=== PATIENT | male | born 1935 | race Caucasian/White ===

== ENCOUNTER 2016-11-28 15:55 | Inpatient (IN) | payer OTHER, MEDICARE ==
[2016-11-28] VITALS (17 sets, daily range): BP systolic 80–136; BP diastolic 48–74; PULSE 82–130; RESP 14–20; TEMP 97–97.7; O2SAT 94–100
[~2016-11-28 15:55] MED LIST: ALLO100 PO; ASPI325T10 PO; ATOR40TA PO; CILO100T PO; GABA100C4 PO; IMOD2TAB PO; LANO0.1212 PO; METO50CR PO; TRIA.1%T TOP
[2016-11-28] MEDS ORDERED: SODIUM CHLORIDE 0.9% FLUSH 10 ML FLUSH IVF PRN (16:15)
[2016-11-28] MEDS ORDERED: ETOMIDATE 20 MG/10 ML VIAL IVP ONE (16:15)
[2016-11-28] MEDS ORDERED: VECURONIUM BROMIDE 10 MG VIAL IV ONE (16:15)
--- NOTE | 2016-11-28 16:37 | RADRPT ---
EXAM DATE/TIME: 11/28/2016 16:19 [facility] COMPARISON: CHEST SINGLE AP, May 10, 2016, 15:17. INDICATIONS : Chest pain, intubation. MEDICAL HISTORY : Unobtainable. SURGICAL HISTORY : Unobtainable. ENCOUNTER: Initial ACUITY: 1 day PAIN SCORE: Non-responsive. LOCATION: Chest FINDINGS: ET tube and nasogastric tube are in good position. The heart is enlarged. Mild interstitial edema is present. There is no alveolar consolidation or pneumothorax. CONCLUSION: 1. Cardiomegaly with mild congestive failure. 2. Support apparatus in good position. Kev Louise MD FACR on November 28, 2016 at 16:26 Board Certified Radiologist. This report was verified electronically.
[2016-11-28 16:38] LABS: I-STAT POTASSIUM 4.1 MMOL/L (3.5-4.9)
[2016-11-28] MEDS ORDERED: SODIUM CHLORID 0.9% 500 ML INJ 500 ML IV ONE ×3 (16:45→21:30)
[2016-11-28 16:46] LABS: BLOOD GAS BASE EXCESS -16.8 mmol/L (-2-2); BLOOD GAS CARBOXYHEMOGLOBIN 0.1 % (0-4); BLOOD GAS HCO3 13 mmol/L (22-26); BLOOD GAS METHEMOGLOBIN 0.4 % (0-2); BLOOD GAS O2 HGB SATURATION 97 % (90-100); BLOOD GAS OXYGEN CONTENT 20.5 Vol % (12.0-20.0); BLOOD GAS PCO2 62 mmHg (38-42); BLOOD GAS PO2 149 mmHG (61-120); BLOOD GAS TOTAL HGB 14.9 G/DL (12.0-16.0); CRITICAL VALUE YES; TEMP CORR TO 98.6
[2016-11-28 16:46] LABS: INTERNATIONAL NORMALIZED RATIO 1.1 RATIO; PROTHROMBIN TIME - PATIENT 12.2 SEC (9.8-11.6)
[2016-11-28 16:47] LABS: DRAW SITE RT RADIAL; FIO2 100 %; NUMBER OF ARTERIAL PUNCTURES 1; OXYGEN DEVICE VENTILATOR; STAT YES; ULNAR PULSE PRESENT; VENT SETTINGS 14/550/+5/100%
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
[2016-11-28 16:53] LABS: AUTOMATED NEUTROPHIL # 4.6 TH/MM3 (1.8-7.7); BASOPHIL # 0.1 TH/MM3 (0-0.2); BASOPHIL % 0.3 % (0.0-2.0); EOSINOPHIL # 0.2 TH/MM3 (0-0.4); EOSINOPHIL % 0.8 % (0.0-4.0); HEMATOCRIT 52.9 % (39.0-51.0); LYMPH % 73.9 % (9.0-44.0); LYMPHOCYTE # 16.4 TH/MM3 (1.0-4.8); MEAN CELL VOLUME 107.7 FL (80.0-100.0); MEAN CORPUSCULAR HEMOGLOBIN 33.7 PG (27.0-34.0); MEAN CORPUSCULAR HGB CONC 31.3 % (32.0-36.0); MONO % 4.4 % (0.0-8.0); NEUT % 20.6 % (16.0-70.0); PLATELET COUNT 176 TH/MM3 (150-450); RED BLOOD COUNT 4.92 MIL/MM3 (4.50-5.90); RED CELL DISTRIBUTION WIDTH 17.4 % (11.6-17.2); WHITE BLOOD COUNT 22.2 TH/MM3 (4.0-11.0)
[2016-11-28 16:55] LABS: ALKALINE PHOSPHATASE 172 U/L (45-117); ALT (GPT) 38 U/L (12-78); ANION GAP 26 MEQ/L (5-15); AST (GOT) 47 U/L (15-37); BICARBONATE 14.6 MEQ/L (21.0-32.0); BLOOD UREA NITROGEN 23 MG/DL (7-18); CHLORIDE 100 MEQ/L (98-107); GLOMERULAR FILTRATION RATE 29 ML/MIN (>89); MAGNESIUM 2.9 MG/DL (1.5-2.5); SODIUM (NA) 141 MEQ/L (136-145); TOTAL BILIRUBIN ADULT 1.1 MG/DL (0.2-1.0)
[2016-11-28 16:56] LABS: CREATINE KINASE 99 U/L (39-308)
[2016-11-28 16:57] LABS: HEMO FLAGS AUTO DIFF
[2016-11-28] MEDS ORDERED: SODIUM BICARBONATE 8.4% INJ 50 MEQ/50 ML SYR IV PUSH ONE ×2 (17:00)
[2016-11-28] MEDS ORDERED: VANCOMYCIN INJ 1,000 MG in SODIUM CHLOR 0.9% 250 ML INJ 250 ML IV STA (17:03)
[2016-11-28] MEDS ORDERED: PIPERACIL-TAZO 4.5 GM PREMIX 100 ML IV STA (17:03)
[2016-11-28 17:49] LABS: BANDS 3 % (0-6); EOSINOPHILS 2 % (0-4); NEUTROPHIL # MANUAL DIFF 5.6 TH/MM3 (1.8-7.7); POLYS (SEG NEUTROPHILS) 20 % (16-70); PROMYELOCYTES 2 % (0-0); SCAN/DIFF FINAL DIFF MANUAL; WBC DIFF SAMPLE 100
[2016-11-28 17:50] LABS: PLATELET ESTIMATE SMEAR NORMAL (NORMAL); PLATELET MORPHOLOGY NORMAL (NORMAL)
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
[2016-11-28 18:29] LABS: BLOOD GAS BASE EXCESS -5.1 mmol/L (-2-2); BLOOD GAS HCO3 20 mmol/L (22-26); BLOOD GAS METHEMOGLOBIN 0.3 % (0-2); BLOOD GAS O2 HGB SATURATION 93 % (90-100); BLOOD GAS OXYGEN CONTENT 19.3 Vol % (12.0-20.0); BLOOD GAS PCO2 40 mmHg (38-42); BLOOD GAS PO2 79 mmHG (61-120); BLOOD GAS TOTAL HGB 14.7 G/DL (12.0-16.0); TEMP CORR TO 98.6
[2016-11-28 19:13] LABS: BACTERIA, URINE MOD /hpf; BLOOD, URINE LARGE (NEG); GLUCOSE,URINE TRACE mg/dL (NEG); KETONE, URINE NEG (NEG); MUCUS URINE FEW /lpf (OCC); NITRITE,URINE NEG (NEG); URINE COLOR YELLOW (YELLW/STRAW)
[2016-11-28] MEDS ORDERED: GLUCAGON 1 MG/ML VIAL OTHER PRN (19:15)
[2016-11-28] MEDS ORDERED: MIDAZOLAM HCL 2 MG/2 ML VIAL IV PRN (19:15)
[2016-11-28] MEDS ORDERED: RESP: ALBUTEROL 2.5 MG/3 ML NEB (PRN) INH (19:15)
[2016-11-28] MEDS ORDERED: CHLORHEXIDINE GLUCONATE 2 % 1 PACK (2 CLOTHS) TOP PRN (19:15)
[2016-11-28] MEDS ORDERED: ONDANSETRON HCL 4 MG/2 ML VIAL IV PRN (19:15)
[2016-11-28] MEDS ORDERED: DEXTROSE 50% IN WATER 50 ML VIAL(D50) IV PUSH PRN (19:15)
[2016-11-28] MEDS ORDERED: MISCELLANEOUS NURSING INFORMATION XX SCH (19:15)
[2016-11-28 19:18] LABS: COMMENT (UR) CATH-CULTURE IND; CULTURE IF INDICATED CATH CULTURE IND
[2016-11-28] MEDS: RESP: ALBUTEROL 2.5 MG/IPRATROPIUM 0.5 MG NEB (SCH) INH (19:35)
[2016-11-28 19:44] LABS: LACTIC ACID GHOST NOT REPORTABLE
[2016-11-28] MEDS ORDERED: fentaNYL DRIP 250 ML IV SCH (20:00)
--- NOTE | 2016-11-28 20:16 | RADRPT ---
EXAM DATE/TIME: 11/28/2016 19:22 [facility] COMPARISON: No previous studies available for comparison. INDICATIONS : Bilateral leg swelling. MEDICAL HISTORY : Congestive heart failure. Hypercholesterolemia. Coronary artery disease. Afib. HTN. Colorectal cance r. Cdiff. SURGICAL HISTORY : Tonsillectomy.Craniotomy. Cholecystectomy.Colorectal cancer removed. Colostomy with reversal. Chemoth erapy. Radiation therapy. ENCOUNTER: Initial ACUITY: 1 day PAIN SCORE: Non-responsive LOCATION: Bilateral leg. TECHNIQUE: Venous ultrasound of the left and right leg was performed from the inguinal ligament to the proximal calf. Real-time, color Doppler and spectral tracing, compression and augmentation techniques were us ed. FINDINGS: RIGHT LEG: There is normal compressibility of the deep venous system from the inguinal region to the proximal ca lf. No echogenic clot is seen in the lumen of the common femoral, femoral, popliteal, and posterior tibial veins. There is a normal response of the venous system to proximal and distal augmentation an d respiration. LEFT LEG: There is normal compressibility of the deep venous system from the inguinal region to the proximal ca lf. No echogenic clot is seen in the lumen of the common femoral, femoral, popliteal, and posterior tibial veins. There is a normal response of the venous system to proximal and distal augmentation an d respiration. CONCLUSION: Normal examination. Lee Mcbride MD on November 28, 2016 at 20:14 Board Certified Radiologist. This report was verified electronically.
--- NOTE | 2016-11-28 20:16 | RADRPT ---
EXAM DATE/TIME: 11/28/2016 19:04 [facility] COMPARISON: No previous studies available for comparison. INDICATIONS : Abdominal pain. MEDICAL HISTORY : Congestive heart failure. Hypercholesterolemia. Coronary artery disease. Afib. HTN. Colorectal canc er. Cdiff. SURGICAL HISTORY : Tonsillectomy. Craniotomy. Cholecystectomy. Colorectal cancer removed. Colostomy with reversal. Chemo therapy. Radiation therapy. ENCOUNTER: Initial ACUITY: 1 day PAIN SCORE: Nonresponsive. LOCATION: Abdomen. MEASUREMENTS: LIVER: 14.4 cm length COMMON DUCT: 5 mm RIGHT KIDNEY: 8.9 x 3.7 x 4.1 cm LEFT KIDNEY: 9.3 x 4.6 x 5.2 cm SPLEEN: 11.7 cm length AORTA: 2.4cm maximal FINDINGS: LIVER: Normal echotexture without focal lesion or ductal dilatation. COMMON DUCT: No intraluminal mass or stone visualized. GALLBLADDER: Surgically absent PANCREAS: Obscured RIGHT KIDNEY: Diffuse increase in cortical echogenicity. Mild atrophy. No evidence of hydronephrosis LEFT KIDNEY: Diffuse increase in cortical echogenicity. Mild atrophy. No evidence of hydronephrosis. SPLEEN: No focal lesion. AORTA: Non aneurysmal. IVC: Within normal limits. CONCLUSION: Chronic-appearing renal disease. No acute findings Lee Mcbride MD on November 28, 2016 at 20:13 Board Certified Radiologist. This report was verified electronically.
[2016-11-28] MEDS: CHLORHEXIDINE 0.12% (ORAL KIT) 15 ML CUP MT SCH (21:16)
[2016-11-28] MEDS: SODIUM CHLOR 0.9% 1000 ML INJ 1,000 ML IV SCH (21:16)
[2016-11-28] MEDS: SODIUM CHLORIDE 0.9% FLUSH 10 ML FLUSH SCH (21:17)
[2016-11-28] MEDS: DOCUSATE SODIUM 100 MG/10 ML UDC G-TUBE SCH (21:24)
[2016-11-28] MEDS: INSULIN ASPART SUPPLEMENTAL SCALE SQ SCH (21:24)
[2016-11-28] MEDS ORDERED: TERBUTALINE INJ 1 MG/ML AMP SQ PRN (21:30)
[2016-11-28] MEDS ORDERED: ATROPINE SULFATE 1 MG/10 ML SYRINGE ONE (22:13)
[2016-11-28] MEDS ORDERED: EPINEPHrine HCL (1:10,000) 1 MG/10 ML SYRINGE ONE (22:13)
[2016-11-28] MEDS ORDERED: LIDOCAINE HCL 2% 100 MG/5 ML SYRINGE ONE (22:13)
[2016-11-29] VITALS (19 sets, daily range): BP systolic 85–129; BP diastolic 50–60; PULSE 70–96; RESP 18; TEMP 97.9–98.6; O2SAT 100
[2016-11-29] MEDS ORDERED: Vancomycin Consult Pharmacy 1 EA OTHER SCH (00:15)
--- NOTE | 2016-11-29 00:18 | RADRPT ---
EXAM DATE/TIME: 11/28/2016 23:27 [facility] COMPARISON: CT BRAIN W/O CONTRAST, November 28, 2016, 17:40. INDICATIONS : CVA. MEDICAL HISTORY : Hypertension. Congestive heart failure. Seizures. High cholesterol, Afib, CAD, Colonrectal cancer SURGICAL HISTORY : Cholecystectomy. Colon resection. Craniotomy, Rectal sx ENCOUNTER: Initial ACUITY: 1 day PAIN SCORE: Nonresponsive. LOCATION: Bilateral cranial TECHNIQUE: Multiplanar, multisequence MRI of the brain was performed without contrast. FINDINGS: Areas of encephalomalacia involving the right temporal lobe, right occipital lobe, left frontal lobe and right parietal lobe. Periventricular high T2 signal abnormality involving both cerebral hemispher es. No hemorrhage or acute infarction. Ventricles are normal in size. Prior right craniotomy. Mucosal thickening scattered throughout the ethmoid air cells, maxillary sinuses, and sphenoid sinuses bilat erally. CONCLUSION: 1. No acute intracranial abnormality. 2. Multiple sites of encephalomalacia as detailed above. 3. Chronic small vessel ischemic change. 4. Chronic paranasal sinus disease. Edmond Chavis Jr., MD on November 29, 2016 at 0:13 Board Certified Radiologist. This report was verified electronically.
--- NOTE | 2016-11-29 00:22 | RADRPT ---
EXAM DATE/TIME: 11/28/2016 23:27 [facility] COMPARISON: MRI BRAIN W/O CONTRAST, November 28, 2016, 23:27. INDICATIONS : CVA. MEDICAL HISTORY : Hypertension. Congestive heart failure. Seizures. High cholesterol, Afib, CAD, Colonrectal cancer SURGICAL HISTORY : Colon resection. Cholecystectomy. Craniotomy, Rectal sx. ENCOUNTER: Initial ACUITY: 1 day PAIN SCORE: Nonresponsive. LOCATION: Bilateral cranial Please note a normal MRA of the brain does not entirely exclude the possibility of a small aneurysm, nor the possibility of distal intracranial vessel disease. TECHNIQUE: 3D time of flight MRA was performed. Source images, multiplanar STS MIP, and 3D volume MIP reconstru ctions were reviewed. FINDINGS: There is excellent visualization of the major intracranial arteries out to the second-order branch ve ssels. There is no evidence for aneurysm, vessel truncation or stenosis, and no evidence for vascula r malformation. Artifact generates reduced signal within the distal M1's bilaterally. Persistent feta l circulation is seen bilaterally. There is chronic occlusion of the distal P2 on the right. CONCLUSION: 1. 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 No acute abnormality. Edmond Chvais Jr., MD on November 29, 2016 at 0:17 Board Certified Radiologist. This report was verified electronically.
--- NOTE | 2016-11-29 00:24 | RADRPT ---
EXAM DATE/TIME: 11/28/2016 23:58 [facility] COMPARISON: CHEST SINGLE AP, November 28, 2016, 16:19. INDICATIONS : Respiratory distress, STEMI alert. DOSE: 8.5 mCi Tc99m MAA IV 0.92 mCi Tc99m DTPA aerosol MEDICAL HISTORY : Hypertension. Congestive heart failure. Atrial fibrillation and coronary artery disease. SURGICAL HISTORY : Cholecystectomy. Tonsillectomy. Colostomy. ENCOUNTER: Initial ACUITY: 1 day PAIN SCALE: Non-responsive LOCATION: Chest. TECHNIQUE: Following five minutes of tidal breathing of DTPA aerosol, planar images of the lungs were performed in eight projections. The patient was then injected with MAA, and eight-view perfusion scan was perf ormed. FINDINGS: There is a homogeneous pattern of aerosol delivery to the periphery of both lungs. No focal ventilat ory defects are seen. The perfusion lung scan demonstrates a homogenous pattern of uptake in both lungs. No segmental or s ubsegmental defects are seen. CONCLUSION: Normal examination. Edmond Chavis Jr., MD on November 29, 2016 at 0:21 Board Certified Radiologist. This report was verified electronically.
[2016-11-29] MEDS ORDERED: HEPARIN SODIUM - IV 10,000 UNITS/10 ML VIAL IV ONE (00:30)
[2016-11-29] MEDS ORDERED: PIPERACIL-TAZO 3.375 GM PREMIX 50 ML IV SCH (00:30)
[2016-11-29] MEDS: RESP: ALBUTEROL 2.5 MG/IPRATROPIUM 0.5 MG NEB (SCH) INH ×2 (00:42→08:06)
[2016-11-29] MEDS: PIPERACIL-TAZO 3.375 GM PREMIX 50 ML IV SCH ×4 (00:53→17:54)
[2016-11-29] MEDS ORDERED: VANCOMYCIN 1,000 MG/NS 250 ML IV ONE ×2 (02:00)
[2016-11-29] MEDS ORDERED: MIDAZOLAM HCL 5 MG/ML VIAL (1 ML) ONE (02:11)
[2016-11-29 02:13] LABS: APTT (PATIENT) 27.2 SEC (24.3-30.1); INTERNATIONAL NORMALIZED RATIO 1.1 RATIO
[2016-11-29] MEDS: HEPARIN-D5W INJ 250 ML IV SCH ×2 (02:46→20:46)
[2016-11-29] MEDS: ASPIRIN 81 MG CHEW TAB CHEW SCH ×2 (03:00→09:00)
[2016-11-29 03:52] LABS: LACTIC ACID GHOST NOT REPORTABLE
[2016-11-29] MEDS: INSULIN ASPART SUPPLEMENTAL SCALE SQ SCH ×6 (04:00→20:00)
[2016-11-29 04:19] LABS: BLOOD GAS BASE EXCESS -2.5 mmol/L (-2-2); BLOOD GAS CARBOXYHEMOGLOBIN 0.9 % (0-4); BLOOD GAS HCO3 22 mmol/L (22-26); BLOOD GAS METHEMOGLOBIN 0.7 % (0-2); BLOOD GAS O2 HGB SATURATION 98 % (90-100); BLOOD GAS OXYGEN CONTENT 20.5 Vol % (12.0-20.0); BLOOD GAS PCO2 40 mmHg (38-42); BLOOD GAS PO2 274 mmHg (61-120); BLOOD GAS TOTAL HGB 14.4 G/DL (12.0-16.0); TEMP CORR TO 98.6
[2016-11-29 04:20] LABS: CRITICAL VALUE NO; OXYGEN DEVICE VENTILATOR
[2016-11-29 04:21] LABS: DRAW SITE LT RADIAL; FIO2 40 %; NUMBER OF ARTERIAL PUNCTURES 1; STAT NO; ULNAR PULSE PRESENT; VENT SETTINGS AC/18/500/PEEP8
[2016-11-29] MEDS: CHLORHEXIDINE GLUCONATE 2 % 1 PACK (2 CLOTHS) TOP SCH (04:25)
[2016-11-29 04:49] LABS: AUTOMATED NEUTROPHIL # 10.2 TH/MM3 (1.8-7.7); BASOPHIL % 0.1 % (0.0-2.0); EOSINOPHIL % 0.1 % (0.0-4.0); HEMATOCRIT 41.1 % (39.0-51.0); HEMO FLAGS DIFF FINAL; LYMPH % 16.6 % (9.0-44.0); LYMPHOCYTE # 2.2 TH/MM3 (1.0-4.8); MEAN CELL VOLUME 98.5 FL (80.0-100.0); MEAN CORPUSCULAR HEMOGLOBIN 33.3 PG (27.0-34.0); MEAN CORPUSCULAR HGB CONC 33.8 % (32.0-36.0); MONO % 6.8 % (0.0-8.0); NEUT % 76.4 % (16.0-70.0); PLATELET COUNT 140 TH/MM3 (150-450); RED BLOOD COUNT 4.17 MIL/MM3 (4.50-5.90); RED CELL DISTRIBUTION WIDTH 16.9 % (11.6-17.2); WHITE BLOOD COUNT 13.4 TH/MM3 (4.0-11.0)
[2016-11-29 04:53] LABS: ALKALINE PHOSPHATASE 98 U/L (45-117); ALT (GPT) 42 U/L (12-78); ANION GAP 8 MEQ/L (5-15); AST (GOT) 77 U/L (15-37); BICARBONATE 25.8 MEQ/L (21.0-32.0); BLOOD UREA NITROGEN 25 MG/DL (7-18); CHLORIDE 109 MEQ/L (98-107); GLOMERULAR FILTRATION RATE 34 ML/MIN (>89); MAGNESIUM 2.4 MG/DL (1.5-2.5); POTASSIUM 4.7 MEQ/L (3.5-5.1); SODIUM (NA) 143 MEQ/L (136-145); TOTAL BILIRUBIN ADULT 1.3 MG/DL (0.2-1.0)
[2016-11-29] MEDS: SODIUM CHLOR 0.9% 1000 ML INJ 1,000 ML IV SCH ×2 (05:05→16:00)
[2016-11-29 05:30] LABS: APTT (PATIENT) 225.7 SEC (24.3-30.1)
--- NOTE | 2016-11-29 06:11 | RADRPT ---
EXAM DATE/TIME: 11/29/2016 05:33 [facility] COMPARISON: CHEST SINGLE AP, November 28, 2016, 16:19. INDICATIONS : Cental line placement. MEDICAL HISTORY : Unobtainable. SURGICAL HISTORY : Unobtainable. ENCOUNTER: Subsequent ACUITY: 2 days PAIN SCORE: Non-responsive. LOCATION: Bilateral chest FINDINGS: A single view of the chest demonstrates the lungs to be symmetrically aerated without evidence of mas s, infiltrate or effusion. The cardiomediastinal contours are unremarkable. Osseous structures are intact. There has been placement of a right-sided central line with the tip at the cavoatrial junctio n. No pneumothorax. Tip of the endotracheal tube 4 cm proximal to lionel. Nasogastric tube courses of f the inferior margin of the film. CONCLUSION: Lungs are clear on the current study. No pneumothorax following right sided central line placement. Edmond Chavis Jr., MD on November 29, 2016 at 6:09 Board Certified Radiologist. This report was verified electronically.
--- NOTE | 2016-11-29 06:18 | MB ---
cc: MISAEL CALDERON DATE OF CONSULTATION 11/28/2016 REASON FOR CONSULTATION Mr. Obando is an 81-year-old white male with a history of hypertension, chronic atrial fibrillation, congestive heart failure, coronary artery disease. He was playing cards with his family and suddenly started to drop cards. His went to the kitchen and subsequently he was noticed to have seizure-like activity. He was still breathing but was unresponsive. EMS was called and after about 10 minutes of seizure activity, they arrived. He was found to be in PEA. He was given CPR and eventually was found to be in atrial fibrillation with rapid ventricular response. He could not be intubated in the field. He is now intubated, on the ventilator and unresponsive. According to the family, he has not had any recent chest pains or heart failure symptoms. PAST MEDICAL HISTORY 1. Positive for chronic atrial fibrillation. 2. Colorectal cancer surgically removed. 3. Craniectomy. 4. Cholecystectomy. 5. Tonsillectomy. 6. History of dyslipidemia. 7. Congestive heart failure. 8. Hypertension. MEDICATIONS 1. Zyloprim. 2. Atorvastatin. 3. Cilostazol. 4. Loperamide. 5. Triamcinolone acetonide. 6. Lanoxin. 7. Aspirin. 8. Metoprolol. 9. Gabapentin. ALLERGIES None. SOCIAL HISTORY The patient does not smoke; he smoked in the past. He does not drink alcohol. He is accompanied by his family including his ex-. FAMILY HISTORY Negative for heart disease. REVIEW OF SYSTEMS Otherwise negative. PHYSICAL EXAMINATION VITAL SIGNS: Blood pressure 130/58, pulse 105 and irregular. HEENT: Negative. The patient is intubated and unresponsive. LUNGS: Clear. HEART: Irregularly irregular with no murmur, gallop or rub. ABDOMEN: Soft. No bruits. EXTREMITIES: Without edema. 1-2+ distal pulses. NEUROLOGIC: Exam grossly nonfocal. EKG Reviewed and showed atrial fibrillation with increased ventricular response and diffuse ST depressions but no evidence of ST elevations. LABORATORY DATA Hemoglobin 16.6, potassium 4.0, creatinine 2.2. AST 47, ALT 38. Troponin 0.05. BNP 385. ASSESSMENT 1. Cardiorespiratory arrest. 2. Possible seizure. 3. Atrial fibrillation with increased ventricular response. 4. Hypertension. 5. Dyslipidemia. DISPOSITION Mr. Obando will be admitted to the ICU. We will obtain serial enzymes and EKGs. His neurologic status is unclear due to prolonged resuscitation. This situation was discussed with the family. At this time there is no evidence of acute coronary syndrome. I will follow him for Cardiology during his hospitalization. We will continue ICU care. Misael Calderon MD OQ/SSB /6:57 PM /5:57 AM [facility]
[2016-11-29 06:30] LABS: CRITICAL VALUE NO
[2016-11-29] MEDS ORDERED: HEPARIN SODIUM - IV 10,000 UNITS/10 ML VIAL IV PRN ×2 (06:30)
[2016-11-29 06:34] LABS: APTT (PATIENT) GREATER THAN 153.4 SEC (24.3-30.1)
[2016-11-29] MEDS: PROPOFOL 1000 MG/100 ML INJ 100 ML IV SCH ×2 (07:21→20:45)
[2016-11-29] MEDS: SODIUM CHLORIDE 0.9% FLUSH 10 ML FLUSH SCH ×2 (07:57→20:11)
[2016-11-29 07:58] LABS: DRAW SITE RT RADIAL; FIO2 100 %; NUMBER OF ARTERIAL PUNCTURES 1; OXYGEN DEVICE VENTILATOR; STAT YES; ULNAR PULSE PRESENT; VENT SETTINGS AC20/550/5PEEP
--- NOTE | 2016-11-29 08:44 | PD.PROCEDR ---
Procedure Note Procedure DATE: 11/29/16 CENTRAL LINE PLACEMENT: Right internal jugular vein. Ultrasound-guided INDICATION: Central venous access CONSENT Informed consent for procedure was obtained from patients son after discussion of risks, benefits, alternatives. DESCRIPTION OF THE PROCEDURE The patient was placed in supine position, mild Trendelenburg. The skin was cleansed with Chloraprep x3. Additional barrier precautions included large sterile drape, sterile gloves, sterile gown, face mask, and hat. 1 % lidocaine was used for local anesthesia. Under direct ultrasound guidance and on single attempt, the vein was accessed with an introducer needle. The guide wire was advanced and the tract was dilated. Using Seldinger technique a 7 [place] 20 cm antimicrobial coated triple-lumen catheter was advanced to a depth of 18 centimeters. The guide wire was removed. All ports had good return of dark venous blood and flushed easily with saline. The central line was secured with 2.0 silk. A sterile dressing with antibiotic disc was applied. ESTIMATED BLOOD LOSS: Minimal COMPLICATIONS: No apparent complications. STAT chest x-ray demonstrates fcentral venous line position without apparent complication Ruth Castle MD November 29, 2016 08:43
[2016-11-29 09:10] LABS: BLOOD GAS VENOUS BASE EXCESS -1.3 mmol/L (-2-2); BLOOD GAS VENOUS HCO3 24 mmol/L (22-26); BLOOD GAS VENOUS O2 CONTENT 13.3 Vol % (9.0-17.0); BLOOD GAS VENOUS O2 HGB SAT 64 % (70-76); BLOOD GAS VENOUS PCO2 45 mmHg (44-48); BLOOD GAS VENOUS PO2 37 mmHg (35-40); BLOOD GAS VENOUS pH 7.34 (7.360-7.400); CRITICAL VALUE NO; DRAW SITE IV; FIO2 40 %; OXYGEN DEVICE VENTILATOR; STAT YES; TEMP CORR TO 98.6; VENT SETTINGS AC 18/500/8+
[2016-11-29] MEDS: CHLORHEXIDINE 0.12% (ORAL KIT) 15 ML CUP MT SCH ×2 (09:12→20:10)
[2016-11-29] MEDS: PRAVASTATIN SOD 40 MG TAB PO SCH (09:13)
[2016-11-29] MEDS: DOCUSATE SODIUM 100 MG/10 ML UDC G-TUBE SCH ×2 (09:13→20:13)
[2016-11-29] MEDS: PANTOPRAZOLE SODIUM 40 MG VIAL IV SCH (09:13)
[2016-11-29 09:22] LABS: HDL CHOLESTEROL 30.2 MG/DL (40.0-60.0)
[2016-11-29 09:24] LABS: INDIRECT BILIRUBIN 0.9 MG/DL (0.0-0.8)
[2016-11-29 09:47] LABS: APTT (PATIENT) 68.3 SEC (24.3-30.1)
[2016-11-29] MEDS: FOSPHENYTOIN SODIUM 100 MG PE/2 ML VIAL IV SCH ×2 (10:00→17:54)
[2016-11-29] MEDS ORDERED: FOSPHENYTOIN INJ 1,000 MGPE in SODIUM CHLORIDE 0.9% INJ 100 ML IV ONE (11:00)
[2016-11-29] MEDS: RESP: ALBUTEROL 2.5 MG/IPRATROPIUM 0.5 MG NEB (SCH) NEB ×3 (11:14→20:33)
[2016-11-29] MEDS ORDERED: LORazepam 2 MG/ML VIAL IV PUSH PRN (11:15)
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
[2016-11-29] MEDS ORDERED: SODIUM CHLORID 0.9% 500 ML INJ 500 ML IV ONE (12:00)
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
--- NOTE | 2016-11-29 14:07 | EC ---
Study Study Date:11/29/2016 STUDY CONCLUSIONS SUMMARY - Left ventricle: The cavity size was normal. Wall thickness was normal. Systolic function was mildly to moderately reduced. The estimated ejection fraction was in the range of 40% to 45%. Wall motion was normal; there were no regional wall motion abnormalities. - Left atrium: The atrium was mildly dilated. If LV function is below 40, please consider prescribing an ACEI or ARB or document rationale for non-use. PROCEDURE DATA STUDY STATUS: Elective. Procedure: Transthoracic echocardiography. Image quality was poor. Scanning was performed from the parasternal, apical, and subcostal acoustic windows. Study completion: The patient tolerated the procedure well. Transthoracic echocardiography. M-mode, complete 2D, complete spectral Doppler, and color Doppler. Patient status: Inpatient. CARDIAC ANATOMY LEFT VENTRICLE: The cavity size was normal. Wall thickness was normal. Systolic function was mildly to moderately reduced. The estimated ejection fraction was in the range of 40% to 45%. Wall motion was normal; there were no regional wall motion abnormalities. AORTIC VALVE: Trileaflet; mildly thickened, mildly calcified leaflets. Doppler: Transvalvular velocity was within the normal range. There was no stenosis. No regurgitation. AORTA: Aortic root: The aortic root was normal in size. MITRAL VALVE: Structurally normal valve. Doppler: Transvalvular velocity was within the normal range. There was no evidence for stenosis. Trace to mild regurgitation. LEFT ATRIUM: The atrium was mildly dilated. RIGHT VENTRICLE: The cavity size was normal. Wall thickness was normal. PULMONIC VALVE: Doppler: Transvalvular velocity was within the normal range. There was no evidence for stenosis. No regurgitation. TRICUSPID VALVE: Structurally normal valve. Doppler: Transvalvular velocity was within the normal range. No regurgitation. PULMONARY ARTERY: The main pulmonary artery was normal-sized. Systolic pressure was within the normal range. RIGHT ATRIUM: The atrium was normal in size. PERICARDIUM: There was no pericardial effusion. SYSTEMIC VEINS: Inferior vena cava: The vessel was normal in size. BASIC MEASUREMENTS ADULT Normal Left ventricle LV internal dimension, ED, chordal level, 48.5 mm 43-52 PLAX LV internal dimension, ES, chordal level, *40.7 mm 23-38 PLAX Fractional shortening, chordal level, PLAX *16 % >29 LV posterior wall thickness, ED 10.6 mm IVS/LVPW ratio, ED 1.29 <1.3 Ventricular septum Septal thickness, ED 13.7 mm Aortic valve Leaflet separation 20 mm 15-26 Left atrium Anterior-posterior dimension 37 mm Right ventricle RV internal dimension, ED, PLAX 22 mm 19-38 BASIC MEASUREMENTS ADULT Normal Aortic valve Leaflet separation 20 mm 15-26 Aorta Root diameter, ED 37 mm 20-37 DOPPLER MEASUREMENTS ADULT Normal Mitral valve Maximal regurgitant velocity 425 cm/s Tricuspid valve Regurgitant peak velocity 270 cm/s Peak RV-RA gradient, S 29 mm Hg Maximal regurgitant velocity 270 cm/s LEGEND: Mean values are shown as u=mean value. Asterisk (*) virgen values outside specified normal range. Prepared and signed by Esau Sin [id number]
--- NOTE | 2016-11-29 15:36 | EKG ---
Date Performed: 11/28/2016 Time Performed: 16:05:04 PTAGE: 81 years EKG: ATRIAL FIBRILLATION WITH RAPID VENTRICULAR RESPONSE WITH ABERRANT CONDUCTION OR VENTRICULAR PREMATURE COMPLEXES MODERATE INTRAVENTRICULAR CONDUCTION DELAY MARKED ST DEPRESSION, CONSIDER SUBEN DOCARDIAL INJURY ABNORMAL ECG Also consider anterolateral ischemia. PREVIOUS TRACING : 05/10/2016 17.27 DOCTOR: Esau Sin Interpretating Date/Time 11/29/2016 15:34:40
--- NOTE | 2016-11-29 15:37 | EKG ---
Date Performed: 11/28/2016 Time Performed: 16:32:18 PTAGE: 81 years EKG: ATRIAL FIBRILLATION WITH RAPID VENTRICULAR RESPONSE MODERATE INTRAVENTRICULAR CONDUCTION DE LAY ST DEVIATION AND MODERATE T-WAVE ABNORMALITY, CONSIDER INFERIOR ISCHEMIA ABNORMAL ECG PREVIOUS TRACING : 11/28/2016 16.05.04 Also consider anterolateral ischemia. DOCTOR: Esau Sin Interpretating Date/Time 11/29/2016 15:35:45
[2016-11-29 16:49] LABS: APTT (PATIENT) 93.7 SEC (24.3-30.1)
--- NOTE | 2016-11-29 17:35 | PD.CARD.PN ---
Subjective Subjective Remarks Intubated, sedated Objective Medications Current Medications Medications (Trade) Dose Ordered Sig/Elvin Route Start Time Stop Time Status Last Admin (Diprivan 1000 Mg/100ml Inj) 100 ml @ 0 mls/hr TITRATE IV 11/28/16 16:15 11/29/16 07:21 Chlorhexidine Gluconate 15 ml 15 ml BID@08,20 MT 11/28/16 20:00 11/29/16 09:12 Fentanyl Citrate 250 ml @ 0 mls/hr TITRATE IV 11/28/16 20:00 (NS 1000 ml Inj) 1,000 ml @ 100 mls/hr Q10H IV 11/28/16 20:00 11/29/16 16:00 (NS Flush) 2 ml UNSCH PRN .XX 11/28/16 19:15 (NS Flush) 2 ml BID .XX 11/28/16 21:00 11/29/16 07:57 (fentaNYL INJ) 50 mcg Q1H PRN IV PUSH 11/28/16 19:15 (Protonix Inj) 40 mg DAILY IV 11/29/16 09:00 11/29/16 09:13 (Versed Inj) 2 mg Q1H PRN IV 11/28/16 19:15 (Zofran Inj) 4 mg Q6H PRN IV 11/28/16 19:15 (Colace Liq) 100 mg Q12H G-TUBE 11/28/16 21:00 11/29/16 09:13 Miscellaneous Information 1 Q361D XX 11/28/16 19:15 (Chlorhexidine 2% Cloth) 3 pack Taper DAILY@04 TOP 11/29/16 04:00 11/25/17 03:59 11/29/16 04:25 (Chlorhexidine 2% Cloth) 3 pack UNSCH PRN TOP 11/28/16 19:15 (D50w (Vial) Inj) 25 ml UNSCH PRN IV PUSH 11/28/16 19:15 (Glucagon Inj) 1 mg UNSCH PRN OTHER 11/28/16 19:15 Insulin Aspart 1 1 Q4H SQ 11/28/16 20:00 11/28/16 21:24 (Levophed-Dextrose Drip) 250 ml @ 0 mls/hr TITRATE IV 11/28/16 21:30 Terbutaline Sulfate 1 mg 1 mg UNSCH PRN SQ 5/10/17 21:30 (Vancomycin Consult Pharmacy) 0 ml @ 0 mls/hr UNSCH OTHER 11/29/16 00:15 (Heparin Inj) 5,000 units UNSCH PRN IV 11/29/16 06:30 Heparin Sodium (Porcine) 2500 units 2,500 units UNSCH PRN IV 11/29/16 06:30 Heparin Sodium/ Dextrose 250 ml @ 0 mls/hr TITRATE IV 11/29/16 00:30 11/29/16 02:46 (Zosyn 3.375 Gm Premix) 50 ml @ 100 mls/hr Q6H IV 11/29/16 01:00 11/29/16 12:10 (Aspirin Chew) 162 mg DAILY CHEW 11/29/16 02:45 11/29/16 09:00 (fentaNYL INJ) 50 mcg Q1H PRN IV PUSH 11/29/16 09:00 ([place] 5-325 Mg) 1 tab Q4H PRN OG-TUBE 11/29/16 09:00 (Pravachol) 40 mg DAILY PO 11/29/16 09:00 11/29/16 09:13 (Cerebyx Inj) 100 mgpe Q8H IV 11/29/16 10:00 11/29/16 10:00 (Ativan Inj) 1 mg Q4H PRN IV PUSH 11/29/16 11:15 Vital Signs / I&O Vital Signs Date Time Temp Pulse Resp B/P Pulse Ox O2 Delivery O2 Flow Rate FiO2 11/29/16 16:06 100 40 11/29/16 16:00 98.1 82 18 100/50 100 11/29/16 16:00 40 11/29/16 16:00 82 11/29/16 14:00 82 11/29/16 12:00 97.9 78 18 85/52 100 11/29/16 12:00 70 11/29/16 12:00 40 11/29/16 11:40 100 40 11/29/16 10:00 89 11/29/16 08:04 100 40 11/29/16 08:00 98.1 93 18 129/60 100 11/29/16 08:00 93 11/29/16 08:00 40 11/29/16 07:00 100 Mechanical Ventilator 40 11/29/16 06:00 74 11/29/16 04:00 80 5/11/17 04:00 40 11/29/16 04:00 98.6 80 18 119/58 100 11/29/16 03:43 100 70 11/29/16 02:00 80 11/29/16 00:36 100 80 11/29/16 00:00 96 11/29/16 00:00 98.2 96 18 124/56 100 11/29/16 00:00 80 11/28/16 23:10 100 100 11/28/16 22:00 82 11/28/16 21:00 97.7 90 19 102/54 100 11/28/16 21:00 100 Mechanical Ventilator 100 11/28/16 21:00 100 11/28/16 20:16 98 100 11/28/16 19:50 98 100 11/28/16 19:24 98 100 11/28/16 19:00 107 16 114/56 11/28/16 18:29 105 16 130/58 97 Ventilator 11/28/16 18:00 98 16 105/62 11/28/16 17:49 95 100 I/O 11/28/16 11/28/16 11/28/16 11/29/16 11/29/16 11/29/16 07:00 15:00 23:00 07:00 15:00 23:00 Intake Total 1856 ml 1018 ml 1492 ml Output Total 200 ml 375 ml 400 ml Balance 1656 ml 643 ml 1092 ml Intake IV Total 1856 ml 1018 ml 1492 ml Output Urine Total 200 ml 250 ml 300 ml Gastric Drainage Total 125 ml 100 ml Physical Exam GENERAL: Intubated, sedated SKIN: Warm and dry. HEAD: Normocephalic. EYES: No scleral icterus. No injection or drainage. NECK: Supple, trachea midline. No JVD or lymphadenopathy. CARDIOVASCULAR: Irregular rate and rhythm without murmurs, gallops, or rubs. RESPIRATORY: Breath sounds equal bilaterally. No accessory muscle use. GASTROINTESTINAL: Abdomen soft, non-tender, nondistended. MUSCULOSKELETAL: No cyanosis, or edema. Laboratory Laboratory Tests Test 11/28/16 11/28/16 11/28/16 11/28/16 17:50 18:19 20:30 21:00 Urine Color YELLOW Urine Turbidity HAZY Urine pH 6.0 Urine Specific Mineral 1.011 Urine Protein 100 mg/dL Urine Glucose (UA) TRACE mg/dL Urine Ketones NEG mg/dL Urine Occult Blood LARGE Urine Nitrite NEG Urine Bilirubin NEG Urine Urobilinogen LESS THAN 2.0 MG/DL Urine Leukocyte Esterase NEG Urine RBC 3 /hpf Urine WBC 10 /hpf Urine Amorphous Sediment OCC Urine Bacteria MOD /hpf Urine Mucus FEW /lpf Microscopic Urinalysis Comment CATH-CULTURE IND Blood Gas Puncture Site RT RADIAL Blood Gas Patient Temperature 98.6 Blood Gas HCO3 20 mmol/L Blood Gas Base Excess -5.1 mmol/L Blood Gas Oxygen Saturation 93 % Arterial Blood pH 7.32 Arterial Blood Partial 40 mmHg Pressure CO2 Arterial Blood Partial 79 mmHG Pressure O2 Arterial Blood Oxygen Content 19.3 Vol % Arterial Blood 1.0 % Carboxyhemoglobin Arterial Blood Methemoglobin 0.3 % Blood Gas Hemoglobin 14.7 G/DL Oxygen Delivery Device VENTILATOR Blood Gas Ventilator Setting AC20/550/5PEEP Blood Gas Inspired Oxygen 100 % Nasal Screen MRSA (PCR) MRSA NOT DETECTED Lactic Acid Level 5.5 mmol/L Digoxin Level 1.2 NG/ML Salicylates Level LESS THAN 1.7 MG/DL Test 11/29/16 11/29/16 11/29/16 11/29/16 01:42 04:00 04:06 05:35 Prothrombin Time 12.0 SEC Prothromb Time International 1.1 RATIO Ratio Activated Partial 27.2 SEC 225.7 SEC GREATER THAN Thromboplast Time 153.4 SEC Lactic Acid Level 2.9 mmol/L 1.5 mmol/L Troponin I 4.40 NG/ML 5.49 NG/ML White Blood Count 13.4 TH/MM3 Red Blood Count 4.17 MIL/MM3 Hemoglobin 13.9 GM/DL Hematocrit 41.1 % Mean Corpuscular Volume 98.5 FL Mean Corpuscular Hemoglobin 33.3 PG Mean Corpuscular Hemoglobin 33.8 % Concent Red Cell Distribution Width 16.9 % Platelet Count 140 TH/MM3 Mean Platelet Volume 7.2 FL Neutrophils (%) (Auto) 76.4 % Lymphocytes (%) (Auto) 16.6 % Monocytes (%) (Auto) 6.8 % Eosinophils (%) (Auto) 0.1 % Basophils (%) (Auto) 0.1 % Neutrophils # (Auto) 10.2 TH/MM3 Lymphocytes # (Auto) 2.2 TH/MM3 Monocytes # (Auto) 0.9 TH/MM3 Eosinophils # (Auto) 0.0 TH/MM3 Basophils # (Auto) 0.0 TH/MM3 CBC Comment DIFF FINAL Differential Comment Sodium Level 143 MEQ/L Potassium Level 4.7 MEQ/L Chloride Level 109 MEQ/L Carbon Dioxide Level 25.8 MEQ/L Anion Gap 8 MEQ/L Blood Urea Nitrogen 25 MG/DL Creatinine 1.89 MG/DL Estimat Glomerular Filtration 34 ML/MIN Rate Random Glucose 116 MG/DL Calcium Level 8.1 MG/DL Phosphorus Level 3.4 MG/DL Magnesium Level 2.4 MG/DL Total Bilirubin 1.3 MG/DL Direct Bilirubin 0.4 MG/DL Indirect Bilirubin 0.9 MG/DL Aspartate Amino Transf 77 U/L (AST/SGOT) Alanine Aminotransferase 42 U/L (ALT/SGPT) Alkaline Phosphatase 98 U/L Total Protein 5.6 GM/DL Albumin 3.1 GM/DL Triglycerides Level 78 MG/DL Cholesterol Level 87 MG/DL LDL Cholesterol 41 MG/DL HDL Cholesterol 30.2 MG/DL Cholesterol/HDL Ratio 2.88 RATIO Thyroid Stimulating Hormone 1.910 uIU/ML 3rd Gen Blood Gas Puncture Site LT RADIAL Blood Gas Patient Temperature 98.6 Blood Gas HCO3 22 mmol/L Blood Gas Base Excess -2.5 mmol/L Blood Gas Oxygen Saturation 98 % Arterial Blood pH 7.36 Arterial Blood Partial 40 mmHg Pressure CO2 Arterial Blood Partial 274 mmHg Pressure O2 Arterial Blood Oxygen Content 20.5 Vol % Arterial Blood 0.9 % Carboxyhemoglobin Arterial Blood Methemoglobin 0.7 % Blood Gas Hemoglobin 14.4 G/DL Oxygen Delivery Device VENTILATOR Blood Gas Ventilator Setting AC/18/500/PEEP8 Blood Gas Inspired Oxygen 40 % Test 11/29/16 11/29/16 11/29/16 09:00 09:06 15:47 Activated Partial 68.3 SEC 93.7 SEC Thromboplast Time Blood Gas Puncture Site IV Blood Gas Patient Temperature 98.6 Venous Blood pH 7.34 Venous Blood Partial Pressure 45 mmHg CO2 Venous Blood Partial Pressure 37 mmHg O2 Venous Blood HCO3 24 mmol/L Venous Blood Oxygen Saturation 64 % Venous Blood Oxygen Content 13.3 Vol % Venous Blood Base Excess -1.3 mmol/L Oxygen Delivery Device VENTILATOR Blood Gas Ventilator Setting AC 18/500/8+ Blood Gas Inspired Oxygen 40 % Imaging Last Impressions Chest X-Ray 11/29/16 0508 Signed Impressions: Service Date/Time: November 05:33 - CONCLUSION: Lungs are clear on the current study. No pneumothorax following right sided central line placement. Edmond Chavis Jr., MD Head Magnetic Resonance Angiography 11/28/162130 Signed Impressions: Service Date/Time: Monday, November 28, 2016 23:27 - CONCLUSION: 1. 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 No acute abnormality. Edmond Chavis Jr., MD Lung Scan-V Nuclear Medicine 11/28/16 Signed Impressions: Service Date/Time: Monday, November 28, 2016 23:58 - CONCLUSION: Normal examination. Edmond Chavis Jr., MD Lower Extremity Ultrasound 11/28/16 Signed Impressions: Service Date/Time: Monday, November 28, 2016 19:22 - CONCLUSION: Normal examination. Lee Mcbride MD Brain MRI 11/28/16 Signed Impressions: Service Date/Time: Monday, November 28, 2016 23:27 - CONCLUSION: 1. No acute intracranial abnormality. 2. Multiple sites of encephalomalacia as detailed above. 3. Chronic small vessel ischemic change. 4. Chronic paranasal sinus disease. Edmond Chavis Jr., MD Abdomen Ultrasound 11/28/16 Signed Impressions: Service Date/Time: Monday, November 28, 2016 19:04 - CONCLUSION: Chronic-appearing renal disease. No acute findings Lee Mcbride MD Assessment and Plan Problem List: (1) PEA (Pulseless electrical activity) (2) Endotracheally intubated (3) Acute renal failure (4) Atrial fibrillation (5) PVD (peripheral vascular disease) Assessment and Plan Continue ICU care. Rhythm and vitals stable. Wean vent as tolerated. Degree of anoxic encephalopathy is still unclear. Continue monitoring. Misael Calderon MD November 29, 2016 17:35
[2016-11-29 18:10] LABS: HEMOGLOBIN A1b 1.7 %; HEMOGLOBIN P3 5.3 %
[2016-11-29 18:11] LABS: HEMOGLOBIN Ao 85.1 %
[2016-11-29 19:39] LABS: APTT (PATIENT) 82.6 SEC (24.3-30.1)
[2016-11-30] VITALS (17 sets, daily range): BP systolic 98–142; BP diastolic 56–84; PULSE 67–109; RESP 18–42; TEMP 98.1–98.8; O2SAT 95–100
[2016-11-30] MEDS: PIPERACIL-TAZO 3.375 GM PREMIX 50 ML IV SCH ×4 (00:05→17:30)
[2016-11-30] MEDS: RESP: ALBUTEROL 2.5 MG/IPRATROPIUM 0.5 MG NEB (SCH) NEB ×4 (01:00→21:44)
[2016-11-30] MEDS: FOSPHENYTOIN SODIUM 100 MG PE/2 ML VIAL IV SCH ×4 (01:30→21:08)
[2016-11-30] MEDS: SODIUM CHLOR 0.9% 1000 ML INJ 1,000 ML IV SCH ×2 (01:30→11:48)
[2016-11-30 02:20] LABS: APTT (PATIENT) 93.8 SEC (24.3-30.1)
[2016-11-30] MEDS: INSULIN ASPART SUPPLEMENTAL SCALE SQ SCH ×6 (03:56→20:00)
[2016-11-30] MEDS: CHLORHEXIDINE GLUCONATE 2 % 1 PACK (2 CLOTHS) TOP SCH (03:57)
[2016-11-30 04:08] LABS: APTT (PATIENT) 70.2 SEC (24.3-30.1)
[2016-11-30] MEDS: PROPOFOL 1000 MG/100 ML INJ 100 ML IV SCH ×2 (04:55→13:02)
[2016-11-30] MEDS: SODIUM CHLORIDE 0.9% FLUSH 10 ML FLUSH SCH ×2 (07:15→20:47)
[2016-11-30] MEDS: CHLORHEXIDINE 0.12% (ORAL KIT) 15 ML CUP MT SCH ×2 (08:39→20:00)
[2016-11-30] MEDS: ASPIRIN 81 MG CHEW TAB CHEW SCH (08:40)
[2016-11-30] MEDS: DOCUSATE SODIUM 100 MG/10 ML UDC G-TUBE SCH ×2 (08:40→20:47)
[2016-11-30] MEDS: PANTOPRAZOLE SODIUM 40 MG VIAL IV SCH (08:40)
[2016-11-30] MEDS: PRAVASTATIN SOD 40 MG TAB PO SCH (08:40)
[2016-11-30] MEDS ORDERED: METOPROLOL TARTRATE 5 MG/5 ML VIAL ONE (10:49)
[2016-11-30 11:49] LABS: APTT (PATIENT) 55.1 SEC (24.3-30.1)
[2016-11-30] MEDS ORDERED: METOPROLOL TARTRATE 5 MG/5 ML VIAL IV PUSH ONE (12:00)
[2016-11-30] MEDS ORDERED: VANCOMYCIN 1,000 MG/NS 250 ML IV ONE ×2 (13:00)
[2016-11-30] MEDS: DEXMEDETOMIDINE INJ 200 MCG in SODIUM CHLORIDE 0.9% INJ 50 ML IV SCH ×3 (15:01→22:52)
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
[2016-11-30 17:40] LABS: APTT (PATIENT) 55.7 SEC (24.3-30.1)
--- NOTE | 2016-11-30 18:19 | HHI.PR ---
Review/Management Diagnosis possible sz, epileptiform activity on eeg Plan increase cerebyx. Diagnosis/Plan: Subjective Subjective Comments No acute events reported No clinical sz. Active Medications Current Medications Medications (Trade) Dose Ordered Sig/Elvin Route Start Time Stop Time Status Last Admin (Peridex 0.12% Liq) 15 ml BID@08,20 MT 11/28/16 20:00 11/30/16 08:39 (NS Flush) 2 ml UNSCH PRN .XX 11/28/16 19:15 (NS Flush) 2 ml BID .XX 11/28/16 21:00 11/30/16 07:15 (fentaNYL INJ) 50 mcg Q1H PRN IV PUSH 11/28/16 19:15 11/30/16 09:24 (Protonix Inj) 40 mg DAILY IV 11/29/16 09:00 11/30/16 08:40 (Versed Inj) 2 mg Q1H PRN IV 11/28/16 19:15 (Zofran Inj) 4 mg Q6H PRN IV 11/28/16 19:15 (Colace Liq) 100 mg Q12H G-TUBE 11/28/16 21:00 11/30/16 08:40 Miscellaneous Information 1 Q361D XX 11/28/16 19:15 (Chlorhexidine 2% Cloth) 3 pack Taper DAILY@04 TOP 11/29/16 04:00 11/25/17 03:59 11/30/16 03:57 (Chlorhexidine 2% Cloth) 3 pack UNSCH PRN TOP 11/28/16 19:15 (D50w (Vial) Inj) 25 ml UNSCH PRN IV PUSH 11/28/16 19:15 (Glucagon Inj) 1 mg UNSCH PRN OTHER 11/28/16 19:15 Insulin Aspart 1 1 Q4H SQ 11/28/16 20:00 11/28/16 21:24 (Levophed-Dextrose Drip) 250 ml @ 0 mls/hr TITRATE IV 11/28/16 21:30 Terbutaline Sulfate 1 mg 1 mg UNSCH PRN SQ 11/28/16 21:30 (Vancomycin Consult Pharmacy) 0 ml @ 0 mls/hr UNSCH OTHER 11/29/16 00:15 (Heparin Inj) 5,000 units UNSCH PRN IV 11/29/16 06:30 Heparin Sodium (Porcine) 2500 units 2,500 units UNSCH PRN IV 11/29/16 06:30 Heparin Sodium/ Dextrose 250 ml @ 0 mls/hr TITRATE IV 11/29/16 00:30 11/29/16 20:46 (Zosyn 3.375 Gm Premix) 50 ml @ 100 mls/hr Q6H IV 11/29/16 01:00 11/30/16 17:30 (Aspirin Chew) 162 mg DAILY CHEW 11/29/16 02:45 11/30/16 08:40 (fentaNYL INJ) 50 mcg Q1H PRN IV PUSH 11/29/16 09:00 ([place] 5-325 Mg) 1 tab Q4H PRN OG-TUBE 11/29/16 09:00 (Pravachol) 40 mg DAILY PO 11/29/16 09:00 11/30/16 08:40 (Cerebyx Inj) 100 mgpe Q8H IV 11/29/16 10:00 11/30/16 17:29 Lorazepam 1 mg 1 mg Q4H PRN IV PUSH 11/29/16 11:15 (Precedex Inj/NS Inj) 52 ml @ 0 mls/hr TITRATE IV 11/30/16 15:00 11/30/16 15:01 Allergies Allergies Coded Allergies No Known Allergies (Verified11/28/16) Exam I&O / VS 11/29/16 11/29/16 11/30/16 15:00 23:00 07:00 Intake Total 1492 ml 802 ml 1039 ml Output Total 400 ml 300 ml 350 ml Balance 1092 ml 502 ml 689 ml Intake IV Total 1492 ml 802 ml 1039 ml Output Urine Total 300 ml 300 ml 350 ml Gastric Drainage Total 100 ml 0 ml 0 ml Vital Signs Date Time Temp Pulse Resp B/P Pulse Ox O2 Delivery O2 Flow Rate FiO2 11/30/16 17:15 100 Nasal Cannula 2.00 11/30/16 17:15 96 Nasal Cannula 3 11/30/16 16:00 30 11/30/16 16:00 67 11/30/16 16:00 98.3 67 18 142/84 96 11/30/16 15:30 30 11/30/16 14:00 68 11/30/16 13:08 30 11/30/16 12:19 98 40 11/30/16 12:18 30 11/30/16 12:00 98.4 82 18 137/69 97 11/30/16 12:00 82 11/30/16 12:00 30 11/30/16 10:00 84 11/30/16 09:02 30 11/30/16 09:02 100 30 11/30/16 09:00 30 11/30/16 08:00 84 11/30/16 08:00 98.1 84 18 113/73 100 11/30/16 08:00 30 11/30/16 07:00 100 Mechanical Ventilator 90 11/30/16 06:00 82 11/30/16 04:34 100 40 11/30/16 04:00 80 11/30/16 04:00 98.1 80 18 107/63 100 11/30/16 04:00 40 11/30/16 02:00 84 11/30/16 00:00 98.8 81 18 98/56 100 11/30/16 00:00 81 11/30/16 00:00 40 11/29/16 23:52 100 35 11/29/16 22:00 93 11/29/16 20:33 100 40 11/29/16 20:00 87 11/29/16 20:00 98.4 76 18 116/54 100 11/29/16 20:00 40 11/29/16 19:00 100 Mechanical Ventilator 40 Exam Comments lethargic perrl Motor--no focal deficit Objective Micro and Labs Laboratory Tests Test 11/29/16 11/29/16 11/30/16 11/30/16 18:55 19:09 01:35 03:45 Activated Partial 82.6 93.8 70.2 Thromboplast Time Lactic Acid Level 1.1 Creatinine 1.81 Estimat Glomerular Filtration 36 Rate Random Vancomycin Level 8.8 Phenytoin (Dilantin) Level 6.2 Test 11/30/16 11/30/16 11:00 17:12 Activated Partial 55.1 55.7 Thromboplast Time Date/Time Procedure Status Source Growth 11/28/16 20:20 Gram Stain - Final Complete Sputum Endotracheal 11/28/16 20:20 Sputum Culture - Final Complete Sputum Endotracheal HEAVY GROWTH NORMAL RESPIRATORY DEBI 11/28/16 17:50 Urine Culture - Final Complete Urine Catheterized Urine NO GROWTH IN 48 HOURS. 11/28/16 17:22 Aerobic Blood Culture - Preliminary Resulted Blood Peripheral NO GROWTH IN 2 DAYS 11/28/16 17:22 Anaerobic Blood Culture - Preliminary Resulted Blood Peripheral NO GROWTH IN 2 DAYS Jayce Wood PhD November 30, 2016 18:19
--- NOTE | 2016-11-30 20:08 | PD.CARD.PN ---
Subjective Subjective Remarks Intubated, restless, awake earlier Objective Medications Current Medications Medications (Trade) Dose Ordered Sig/Elvin Route Start Time Stop Time Status Last Admin (Peridex 0.12% Liq) 15 ml BID@08,20 MT 11/28/16 20:00 11/30/16 08:39 (NS Flush) 2 ml UNSCH PRN .XX 11/28/16 19:15 (NS Flush) 2 ml BID .XX 11/28/16 21:00 11/30/16 07:15 (fentaNYL INJ) 50 mcg Q1H PRN IV PUSH 11/28/16 19:15 11/30/16 09:24 (Protonix Inj) 40 mg DAILY IV 11/29/16 09:00 11/30/16 08:40 (Versed Inj) 2 mg Q1H PRN IV 11/28/16 19:15 (Zofran Inj) 4 mg Q6H PRN IV 11/28/16 19:15 (Colace Liq) 100 mg Q12H G-TUBE 11/28/16 21:00 11/30/16 08:40 Miscellaneous Information 1 Q361D XX 11/28/16 19:15 (Chlorhexidine 2% Cloth) 3 pack Taper DAILY@04 TOP 11/29/16 04:00 11/25/17 03:59 11/30/16 03:57 (Chlorhexidine 2% Cloth) 3 pack UNSCH PRN TOP 11/28/16 19:15 (D50w (Vial) Inj) 25 ml UNSCH PRN IV PUSH 11/28/16 19:15 (Glucagon Inj) 1 mg UNSCH PRN OTHER 11/28/16 19:15 Insulin Aspart 1 1 Q4H SQ 11/28/16 20:00 11/28/16 21:24 (Levophed-Dextrose Drip) 250 ml @ 0 mls/hr TITRATE IV 11/28/16 21:30 Terbutaline Sulfate 1 mg 1 mg UNSCH PRN SQ 11/28/16 21:30 (Vancomycin Consult Pharmacy) 0 ml @ 0 mls/hr UNSCH OTHER 11/29/16 00:15 (Heparin Inj) 5,000 units UNSCH PRN IV 11/29/16 06:30 Heparin Sodium (Porcine) 2500 units 2,500 units UNSCH PRN IV 11/29/16 06:30 Heparin Sodium/ Dextrose 250 ml @ 0 mls/hr TITRATE IV 11/29/16 00:30 11/29/16 20:46 (Zosyn 3.375 Gm Premix) 50 ml @ 100 mls/hr Q6H IV 11/29/16 01:00 11/30/16 17:30 (Aspirin Chew) 162 mg DAILY CHEW 11/29/16 02:45 11/30/16 08:40 (fentaNYL INJ) 50 mcg Q1H PRN IV PUSH 11/29/16 09:00 ([place] 5-325 Mg) 1 tab Q4H PRN OG-TUBE 11/29/16 09:00 (Pravachol) 40 mg DAILY PO 11/29/16 09:00 11/30/16 08:40 Lorazepam 1 mg 1 mg Q4H PRN IV PUSH 11/29/16 11:15 (Precedex Inj/NS Inj) 52 ml @ 0 mls/hr TITRATE IV 11/30/16 15:00 11/30/16 19:54 (Cerebyx Inj) 100 mgpe Q6H IV 11/30/16 22:00 Vital Signs / I&O Vital Signs Date Time Temp Pulse Resp B/P Pulse Ox O2 Delivery O2 Flow Rate FiO2 11/30/16 18:00 75 11/30/16 17:15 100 Nasal Cannula 2.00 11/30/16 17:15 96 Nasal Cannula 3 11/30/16 16:00 30 11/30/16 16:00 67 11/30/16 16:00 98.3 67 18 142/84 96 11/30/16 15:30 30 11/30/16 14:00 68 11/30/16 13:08 30 11/30/16 12:19 98 40 11/30/16 12:18 30 11/30/16 12:00 98.4 82 18 137/69 97 11/30/16 12:00 82 11/30/16 12:00 30 11/30/16 10:00 84 11/30/16 09:02 30 11/30/16 09:02 100 30 11/30/16 09:00 30 11/30/16 08:00 84 11/30/16 08:00 98.1 84 18 113/73 100 11/30/16 08:00 30 11/30/16 07:00 100 Mechanical Ventilator 90 11/30/16 06:00 82 11/30/16 04:34 100 40 11/30/16 04:00 80 11/30/16 04:00 98.1 80 18 107/63 100 11/30/16 04:00 40 11/30/16 02:00 84 11/30/16 00:00 98.8 81 18 98/56 100 11/30/16 00:00 81 11/30/16 00:00 40 11/29/16 23:52 100 35 11/29/16 22:00 93 11/29/16 20:33 100 40 I/O 11/29/16 11/29/16 11/29/16 11/30/16 11/30/16 11/30/16 07:00 15:00 23:00 07:00 15:00 23:00 Intake Total 1018 ml 1492 ml 802 ml 1039 ml 1308 ml Output Total 375 ml 400 ml 300 ml 350 ml 350 ml Balance 643 ml 1092 ml 502 ml 689 ml 958 ml Intake IV Total 1018 ml 1492 ml 802 ml 1039 ml 1308 ml Output Urine Total 250 ml 300 ml 300 ml 350 ml 350 ml Gastric Drainage Total 125 ml 100 ml 0 ml 0 ml 0 ml Physical Exam GENERAL: Intubated, sedated SKIN: Warm and dry. HEAD: Normocephalic. EYES: No scleral icterus. No injection or drainage. NECK: Supple, trachea midline. No JVD or lymphadenopathy. CARDIOVASCULAR: Irregular rate and rhythm without murmurs, gallops, or rubs. RESPIRATORY: Breath sounds equal bilaterally. No accessory muscle use. GASTROINTESTINAL: Abdomen soft, non-tender, nondistended. MUSCULOSKELETAL: No cyanosis, or edema. Laboratory Laboratory Tests Test 11/30/16 11/30/16 11/30/16 11/30/16 01:35 03:45 11:00 17:12 Activated Partial 93.8 SEC 70.2 SEC 55.1 SEC 55.7 SEC Thromboplast Time Creatinine 1.81 MG/DL Estimat Glomerular Filtration 36 ML/MIN Rate Random Vancomycin Level 8.8 COMMENT Phenytoin (Dilantin) Level 6.2 MCG/ML Imaging Last Impressions Chest X-Ray 11/29/16 5281 Signed Impressions: Service Date/Time: November 05:33 - CONCLUSION: Lungs are clear on the current study. No pneumothorax following right sided central line placement. Edmond Chavis Jr., MD Head Magnetic Resonance Angiography 11/28/162130 Signed Impressions: Service Date/Time: Monday, November 28, 2016 23:27 - CONCLUSION: 1. 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 No acute abnormality. Edmond Chavis Jr., MD Head CT 11/28/16 1643 Signed Impressions: Service Date/Time: Monday, November 28, 2016 17:40 - CONCLUSION: Evidence for a previous head trauma with surgery as described above. There are no acute changes evident. Kev Louise MD FACR Lung Scan-VQ Nuclear Medicine 11/28/16 0000 Signed Impressions: Service Date/Time: Monday, November 28, 2016 23:58 - CONCLUSION: Normal examination. Edmond Chavis Jr., MD Lower Extremity Ultrasound 11/28/16 0000 Signed Impressions: Service Date/Time: Monday, November 28, 2016 19:22 - CONCLUSION: Normal examination. Lee Mcbride MD Brain MRI 11/28/16 0000 Signed Impressions: Service Date/Time: Monday, November 28, 2016 23:27 - CONCLUSION: 1. No acute intracranial abnormality. 2. Multiple sites of encephalomalacia as detailed above. 3. Chronic small vessel ischemic change. 4. Chronic paranasal sinus disease. Edmond Chavis Jr., MD Abdomen Ultrasound 11/28/16 0000 Signed Impressions: Service Date/Time: Monday, November 28, 2016 19:04 - CONCLUSION: Chronic-appearing renal disease. No acute findings Lee Mcbride MD Assessment and Plan Problem List: (1) PEA (Pulseless electrical activity) (2) Endotracheally intubated (3) Acute renal failure (4) Atrial fibrillation (5) PVD (peripheral vascular disease) (6) Seizure Assessment and Plan Continue ICU care. A fib rate controlled. Wean vent as tolerated. Degree of anoxic encephalopathy may not be severe, more alert today. EEG suggestive of possible seizure. Continue monitoring. Misael Calderon MD November 30, 2016 20:08
[2016-11-30] MEDS ORDERED: DEXMEDETOMIDINE HCL 200 MCG/2 ML VIAL ONE (20:41)
[2016-11-30] MEDS ORDERED: SODIUM CHLORIDE 0.9% INJ 50 ML ONE (20:41)
[2016-11-30 21:34] LABS: BLOOD GAS BASE EXCESS -5.4 mmol/L (-2-2); BLOOD GAS CARBOXYHEMOGLOBIN 1.2 % (0-4); BLOOD GAS HCO3 19 mmol/L (22-26); BLOOD GAS METHEMOGLOBIN 0.7 % (0-2); BLOOD GAS O2 HGB SATURATION 93 % (90-100); BLOOD GAS OXYGEN CONTENT 17.3 Vol % (12.0-20.0); BLOOD GAS PCO2 36 mmHg (38-42); BLOOD GAS PO2 79 mmHg (61-120); BLOOD GAS TOTAL HGB 13.2 G/DL (12.0-16.0); TEMP CORR TO 98.6
[2016-11-30 21:35] LABS: CRITICAL VALUE NO; DRAW SITE RT RADIAL; LITER FLOW 7 L/M; NUMBER OF ARTERIAL PUNCTURES 1; OXYGEN DEVICE SIMPLE MASK; STAT YES; ULNAR PULSE PRESENT
[2016-11-30] MEDS: HEPARIN-D5W INJ 250 ML IV SCH (22:53)
[2016-12-01] VITALS (18 sets, daily range): BP systolic 77–144; BP diastolic 45–65; PULSE 66–125; RESP 18–32; TEMP 97.3–98.8; O2SAT 88–100
[2016-12-01] MEDS: PIPERACIL-TAZO 3.375 GM PREMIX 50 ML IV SCH ×4 (00:05→19:58)
[2016-12-01] MEDS ORDERED: SODIUM CHLORIDE 0.9% INJ 50 ML ONE (00:36)
[2016-12-01] MEDS ORDERED: DEXMEDETOMIDINE HCL 200 MCG/2 ML VIAL ONE (00:36)
[2016-12-01] MEDS: DEXMEDETOMIDINE INJ 200 MCG in SODIUM CHLORIDE 0.9% INJ 50 ML IV SCH ×8 (00:38→23:30)
[2016-12-01] MEDS ORDERED: PROPOFOL 1000 MG/100 ML INJ 100 ML ONE (00:45)
[2016-12-01] MEDS ORDERED: ETOMIDATE 20 MG/10 ML VIAL ONE (00:53)
--- NOTE | 2016-12-01 01:21 | PD.PROCEDR ---
Procedure Note Procedure Endotracheal Intubation A time-out was completed verifying correct patient, procedure, site, positioning , and special equipment if applicable. The patient was placed in a flat position. Sedation was obtained using Etomidate 20mg. The patient was easily ventilated using an ambu bag. The [employer]/ MAC 4 BLADE was used and inserted into the oropharynx at which time there was a Grade 1 view of the vocal cords. A 8-wolof endotracheal tube was inserted and visualized going through the vocal cords. The stylette was removed. Colorimetric change was visualized on the CO2 meter. Breath sounds were heard in both lung nix equally. The endotracheal tube was placed at 23 cm, measured at the teeth. A chest x-ray was ordered to assess for pneumothorax and verify endotrachealtube placement. Estimated Blood Loss: 0 The patient tolerated the procedure well and there were no complications. Alcides Coley MD December 01, 2016 01:21
[2016-12-01] MEDS ORDERED: PROPOFOL 1000 MG/100 ML INJ 100 ML IV SCH (01:30)
--- NOTE | 2016-12-01 01:47 | RADRPT ---
EXAM DATE/TIME: 12/01/2016 01:20 [facility] COMPARISON: CHEST SINGLE AP, November 29, 2016, 5:33. INDICATIONS : E-T tube placement. MEDICAL HISTORY : Congestive heart failure. Hypercholesterolemia. Hypertension. SURGICAL HISTORY : Tonsillectomy. Craniotomy. Cholecystectomy. ENCOUNTER: Subsequent ACUITY: 1 week PAIN SCORE: Non-responsive. LOCATION: Bilateral chest FINDINGS: The ET tube appears to be in good position. The tip is at the level of the thoracic aortic arch. No p neumothorax. Right-sided central line is in good position. There is a mild patchy infiltrate in the l eft upper lung. The right lung is clear. The heart is enlarged but stable. Bony structures are stable . CONCLUSION: 1. The ET tube and right central line appear to be in good position. 2. No pneumothorax. 3. Patchy infiltrate left upper lung. Michael Pagan MD on December 01, 2016 at 1:44 Board Certified Radiologist. This report was verified electronically.
[2016-12-01] MEDS ORDERED: SUCCINYLCHOLINE CHLORIDE 200 MG/10 ML VIAL ONE (02:07)
[2016-12-01 02:53] LABS: BLOOD GAS BASE EXCESS -5.6 mmol/L (-2-2); BLOOD GAS CARBOXYHEMOGLOBIN 1.3 % (0-4); BLOOD GAS HCO3 19 mmol/L (22-26); BLOOD GAS METHEMOGLOBIN 0.9 % (0-2); BLOOD GAS O2 HGB SATURATION 95 % (90-100); BLOOD GAS OXYGEN CONTENT 16.1 Vol % (12.0-20.0); BLOOD GAS PCO2 36 mmHg (38-42); BLOOD GAS PO2 100 mmHg (61-120); CRITICAL VALUE NO; DRAW SITE RT RADIAL; FIO2 50 %; NUMBER OF ARTERIAL PUNCTURES 1; OXYGEN DEVICE VENTILATOR; STAT NO; TEMP CORR TO 98.6; ULNAR PULSE PRESENT; VENT SETTINGS AC/18/500/PEEP5
[2016-12-01] MEDS: FOSPHENYTOIN SODIUM 100 MG PE/2 ML VIAL IV SCH ×4 (03:36→21:32)
[2016-12-01] MEDS: CHLORHEXIDINE GLUCONATE 2 % 1 PACK (2 CLOTHS) TOP SCH (03:38)
[2016-12-01] MEDS: RESP: ALBUTEROL 2.5 MG/IPRATROPIUM 0.5 MG NEB (SCH) NEB ×4 (03:49→21:24)
[2016-12-01] MEDS: INSULIN ASPART SUPPLEMENTAL SCALE SQ SCH ×6 (04:00→20:00)
[2016-12-01 06:10] LABS: APTT (PATIENT) 43.9 SEC (24.3-30.1)
[2016-12-01] MEDS: SODIUM CHLORIDE 0.9% FLUSH 10 ML FLUSH SCH ×2 (07:31→20:21)
[2016-12-01] MEDS: CHLORHEXIDINE 0.12% (ORAL KIT) 15 ML CUP MT SCH ×2 (08:29→19:58)
[2016-12-01] MEDS: DOCUSATE SODIUM 100 MG/10 ML UDC G-TUBE SCH ×2 (08:30→20:20)
[2016-12-01] MEDS: PANTOPRAZOLE SODIUM 40 MG VIAL IV SCH (08:30)
[2016-12-01] MEDS: ASPIRIN 81 MG CHEW TAB CHEW SCH (08:30)
[2016-12-01] MEDS: PRAVASTATIN SOD 40 MG TAB PO SCH (08:31)
[2016-12-01] MEDS ORDERED: FUROSEMIDE 20 MG/2 ML VIAL IV PUSH ONE (10:15)
[2016-12-01 10:30] LABS: AUTOMATED NEUTROPHIL # 6.8 TH/MM3 (1.8-7.7); BASOPHIL # 0.1 TH/MM3 (0-0.2); BASOPHIL % 0.5 % (0.0-2.0); EOSINOPHIL % 0.4 % (0.0-4.0); HEMATOCRIT 35.9 % (39.0-51.0); LYMPH % 29.2 % (9.0-44.0); LYMPHOCYTE # 3.2 TH/MM3 (1.0-4.8); MEAN CELL VOLUME 99.2 FL (80.0-100.0); MEAN CORPUSCULAR HEMOGLOBIN 33.2 PG (27.0-34.0); MEAN CORPUSCULAR HGB CONC 33.5 % (32.0-36.0); MONO % 7.5 % (0.0-8.0); NEUT % 62.4 % (16.0-70.0); PLATELET COUNT 118 TH/MM3 (150-450); RED BLOOD COUNT 3.62 MIL/MM3 (4.50-5.90); RED CELL DISTRIBUTION WIDTH 17.1 % (11.6-17.2); WHITE BLOOD COUNT 10.9 TH/MM3 (4.0-11.0)
[2016-12-01 10:34] LABS: HEMO FLAGS AUTO DIFF
[2016-12-01 10:58] LABS: ALT (GPT) 36 U/L (12-78); ANION GAP 8 MEQ/L (5-15); AST (GOT) 81 U/L (15-37); BICARBONATE 25.1 MEQ/L (21.0-32.0); BLOOD UREA NITROGEN 26 MG/DL (7-18); CHLORIDE 113 MEQ/L (98-107); GLOMERULAR FILTRATION RATE 35 ML/MIN (>89); MAGNESIUM 2.2 MG/DL (1.5-2.5); POTASSIUM 4.3 MEQ/L (3.5-5.1); SODIUM (NA) 146 MEQ/L (136-145)
[2016-12-01 11:00] LABS: ALKALINE PHOSPHATASE 72 U/L (45-117); TOTAL BILIRUBIN ADULT 1.3 MG/DL (0.2-1.0)
[2016-12-01 11:12] LABS: BANDS 5 % (0-6); EOSINOPHILS 1 % (0-4); MYELOCYTES 1 % (0-0); NEUTROPHIL # MANUAL DIFF 7.5 TH/MM3 (1.8-7.7); POLYS (SEG NEUTROPHILS) 62 % (16-70); PROMYELOCYTES 1 % (0-0); WBC DIFF SAMPLE 100
[2016-12-01 11:13] LABS: OVALOCYTES 1+ (NORMAL); PLATELET ESTIMATE SMEAR LOW (NORMAL); PLATELET MORPHOLOGY NORMAL (NORMAL); SCAN/DIFF FINAL DIFF MANUAL
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
[2016-12-01] MEDS ORDERED: VANCOMYCIN INJ 1,750 MG in SODIUM CHLORID 0.9% 500 ML INJ 500 ML IV ONE (14:00)
[2016-12-01] MEDS: HALOPERIDOL LACTATE 5 MG/ML AMP IV PRN (20:50)
[2016-12-02] VITALS (14 sets, daily range): BP systolic 111–140; BP diastolic 62–83; PULSE 77–103; RESP 21–30; TEMP 97.3–98.7; O2SAT 91–98
[2016-12-02] MEDS: PIPERACIL-TAZO 3.375 GM PREMIX 50 ML IV SCH ×4 (01:25→18:02)
[2016-12-02] MEDS: DEXMEDETOMIDINE INJ 200 MCG in SODIUM CHLORIDE 0.9% INJ 50 ML IV SCH ×5 (01:25→05:50)
[2016-12-02] MEDS: HALOPERIDOL LACTATE 5 MG/ML AMP IV PRN ×3 (02:12→17:05)
[2016-12-02] MEDS: INSULIN ASPART SUPPLEMENTAL SCALE SQ SCH ×6 (04:00→20:00)
[2016-12-02 04:02] LABS: HEMATOCRIT 36.5 % (39.0-51.0); MEAN CELL VOLUME 100.6 FL (80.0-100.0); MEAN CORPUSCULAR HEMOGLOBIN 32.9 PG (27.0-34.0); MEAN CORPUSCULAR HGB CONC 32.8 % (32.0-36.0); PLATELET COUNT 114 TH/MM3 (150-450); RED BLOOD COUNT 3.63 MIL/MM3 (4.50-5.90); REVIEW FLAG FINAL; WHITE BLOOD COUNT 9.7 TH/MM3 (4.0-11.0)
[2016-12-02 04:17] LABS: APTT (PATIENT) 40.5 SEC (24.3-30.1)
[2016-12-02] MEDS: RESP: ALBUTEROL 2.5 MG/IPRATROPIUM 0.5 MG NEB (SCH) NEB ×4 (04:46→19:41)
[2016-12-02] MEDS: FOSPHENYTOIN SODIUM 100 MG PE/2 ML VIAL IV SCH ×5 (05:02→22:30)
[2016-12-02] MEDS: CHLORHEXIDINE GLUCONATE 2 % 1 PACK (2 CLOTHS) TOP SCH (05:13)
[2016-12-02 05:50] LABS: BICARBONATE 22.1 MEQ/L (21.0-32.0); POTASSIUM 4.4 MEQ/L (3.5-5.1)
[2016-12-02] MEDS: HEPARIN-D5W INJ 250 ML IV SCH (05:50)
[2016-12-02] MEDS: CHLORHEXIDINE 0.12% (ORAL KIT) 15 ML CUP MT SCH ×2 (08:00→20:00)
[2016-12-02] MEDS: ASPIRIN 81 MG CHEW TAB CHEW SCH (09:00)
[2016-12-02] MEDS: DOCUSATE SODIUM 100 MG/10 ML UDC G-TUBE SCH ×2 (09:00→21:00)
[2016-12-02] MEDS: PRAVASTATIN SOD 40 MG TAB PO SCH (09:00)
[2016-12-02] MEDS ORDERED: DEXMEDETOMIDINE INJ 1,000 MCG in SODIUM CHLOR 0.9% 250 ML INJ 250 ML IV SCH (09:00)
[2016-12-02] MEDS: DEXMEDETOMIDINE INJ 1,000 MCG in SODIUM CHLOR 0.9% 250 ML INJ 240 ML IV SCH ×4 (09:04→23:38)
[2016-12-02] MEDS: SODIUM CHLORIDE 0.9% FLUSH 10 ML FLUSH SCH ×2 (09:41→21:00)
[2016-12-02] MEDS: PANTOPRAZOLE SODIUM 40 MG VIAL IV SCH (09:52)
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
[2016-12-02] MEDS: FUROSEMIDE 20 MG/2 ML VIAL IV PUSH SCH ×2 (11:03→17:05)
[2016-12-02] MEDS: RESP: ALBUTEROL 2.5 MG/3 ML NEB (PRN) NEB (17:00)
[2016-12-02] MEDS ORDERED: ZIPRASIDONE MESYLATE 20 MG VIAL IM ONE (17:15)
[2016-12-03] VITALS (13 sets, daily range): BP systolic 125–151; BP diastolic 67–79; PULSE 77–98; RESP 21–27; TEMP 95.5–98.1; O2SAT 90–97
[2016-12-03] MEDS: PIPERACIL-TAZO 3.375 GM PREMIX 50 ML IV SCH ×4 (00:22→18:04)
[2016-12-03] MEDS: HALOPERIDOL LACTATE 5 MG/ML AMP IV PRN ×3 (01:43→19:51)
[2016-12-03] MEDS: CHLORHEXIDINE GLUCONATE 2 % 1 PACK (2 CLOTHS) TOP SCH (04:00)
[2016-12-03] MEDS: FOSPHENYTOIN SODIUM 100 MG PE/2 ML VIAL IV SCH ×4 (04:19→22:28)
[2016-12-03] MEDS: DEXMEDETOMIDINE INJ 1,000 MCG in SODIUM CHLOR 0.9% 250 ML INJ 240 ML IV SCH ×3 (05:12→19:51)
[2016-12-03] MEDS: RESP: ALBUTEROL 2.5 MG/IPRATROPIUM 0.5 MG NEB (SCH) NEB (05:16)
[2016-12-03 05:42] LABS: AUTOMATED NEUTROPHIL # 6.8 TH/MM3 (1.8-7.7); BASOPHIL % 0.4 % (0.0-2.0); EOSINOPHIL % 0.5 % (0.0-4.0); HEMATOCRIT 35.8 % (39.0-51.0); HEMO FLAGS DIFF FINAL; LYMPH % 21.1 % (9.0-44.0); MEAN CORPUSCULAR HEMOGLOBIN 32.9 PG (27.0-34.0); MEAN CORPUSCULAR HGB CONC 33.3 % (32.0-36.0); MONO % 7.1 % (0.0-8.0); NEUT % 70.9 % (16.0-70.0); PLATELET COUNT 107 TH/MM3 (150-450); RED BLOOD COUNT 3.62 MIL/MM3 (4.50-5.90); RED CELL DISTRIBUTION WIDTH 16.8 % (11.6-17.2); WHITE BLOOD COUNT 9.5 TH/MM3 (4.0-11.0)
[2016-12-03 05:49] LABS: APTT (PATIENT) 43.9 SEC (24.3-30.1)
[2016-12-03 06:11] LABS: ALKALINE PHOSPHATASE 72 U/L (45-117); ALT (GPT) 38 U/L (12-78); ANION GAP 9 MEQ/L (5-15); AST (GOT) 48 U/L (15-37); BICARBONATE 25.6 MEQ/L (21.0-32.0); BLOOD UREA NITROGEN 28 MG/DL (7-18); CHLORIDE 112 MEQ/L (98-107); GLOMERULAR FILTRATION RATE 43 ML/MIN (>89); POTASSIUM 3.3 MEQ/L (3.5-5.1); SODIUM (NA) 147 MEQ/L (136-145); TOTAL BILIRUBIN ADULT 1.6 MG/DL (0.2-1.0)
[2016-12-03] MEDS: INSULIN ASPART SUPPLEMENTAL SCALE SQ SCH ×2 (07:00→16:00)
[2016-12-03] MEDS: SODIUM CHLORIDE 0.9% FLUSH 10 ML FLUSH SCH ×2 (09:00→20:48)
[2016-12-03] MEDS: ASPIRIN 81 MG CHEW TAB CHEW SCH ×2 (09:00→13:45)
[2016-12-03] MEDS: CHLORHEXIDINE 0.12% (ORAL KIT) 15 ML CUP MT SCH ×2 (09:54→20:00)
[2016-12-03] MEDS: PRAVASTATIN SOD 40 MG TAB PO SCH ×2 (09:55→10:02)
[2016-12-03] MEDS: PANTOPRAZOLE SODIUM 40 MG VIAL IV SCH (09:55)
[2016-12-03] MEDS: DOCUSATE SODIUM 100 MG/10 ML UDC G-TUBE SCH ×2 (09:55→10:00)
--- NOTE | 2016-12-03 10:03 | RADRPT ---
EXAM DATE/TIME: 12/03/2016 09:35 [facility] COMPARISON: CHEST SINGLE AP, December 01, 2016, 1:20. INDICATIONS : Resiratory failure. MEDICAL HISTORY : Congestive heart failure. Hypercholesterolemia. Hypertension SURGICAL HISTORY : Tonsillectomy. Craniotomy. Cholecystectomy ENCOUNTER: Subsequent ACUITY: 1 week PAIN SCORE: Non-responsive. LOCATION: Bilateral chest FINDINGS: The endotracheal tube has been removed. There continue to be some scattered infiltrates in both lung nix. The infiltrate in the left upper lung is about the same. There is a mild infiltrate in the ri ght lung base. The heart size is stable. No significant dural effusions. No evidence of pneumothorax. CONCLUSION: 1. Status post removal of endotracheal tube. No evidence of pneumothorax. 2. Scattered bilateral pulmonary infiltrates. Michael Pagan MD on December 03, 2016 at 10:00 Board Certified Radiologist. This report was verified electronically.
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
[2016-12-03] MEDS: HEPARIN-D5W INJ 250 ML IV SCH (10:41)
[2016-12-03] MEDS: FUROSEMIDE 20 MG/2 ML VIAL IV PUSH SCH ×2 (13:43→18:04)
[2016-12-03] MEDS ORDERED: POTASSIUM CHLOR 40 MEQ PREMIX 100 ML IV ONE ×2 (16:00→22:00)
[2016-12-03] MEDS: PROPRANOLOL HCL 10 MG TAB PO SCH ×2 (16:00→20:48)
--- NOTE | 2016-12-03 18:24 | PD.CARD.PN ---
Subjective Subjective Remarks Agitated, confused Objective Medications Current Medications Medications (Trade) Dose Ordered Sig/Elvin Route Start Time Stop Time Status Last Admin (Peridex 0.12% Liq) 15 ml BID@08,20 MT 11/28/16 20:00 12/03/16 09:54 (NS Flush) 2 ml UNSCH PRN .XX 11/28/16 19:15 (NS Flush) 2 ml BID .XX 11/28/16 21:00 12/03/16 09:00 (Protonix Inj) 40 mg DAILY IV 11/29/16 09:00 12/03/16 09:55 (Zofran Inj) 4 mg Q6H PRN IV 11/28/16 19:15 (Colace Liq) 100 mg Q12H G-TUBE 11/28/16 21:00 12/03/16 09:55 Miscellaneous Information 1 Q361D XX 11/28/16 19:15 (Chlorhexidine 2% Cloth) 3 pack Taper DAILY@04 TOP 11/29/16 04:00 11/25/17 03:59 12/03/16 04:00 (Chlorhexidine 2% Cloth) 3 pack UNSCH PRN TOP 11/28/16 19:15 (D50w (Vial) Inj) 25 ml UNSCH PRN IV PUSH 11/28/16 19:15 Glucagon 1 mg 1 mg UNSCH PRN OTHER 11/28/16 19:15 (Levophed-Dextrose Drip) 250 ml @ 0 mls/hr TITRATE IV 11/28/16 21:30 (Brethine Inj) 1 mg UNSCH PRN SQ 11/28/16 21:30 (Heparin Inj) 5,000 units UNSCH PRN IV 11/29/16 06:30 Heparin Sodium (Porcine) 2500 units 2,500 units UNSCH PRN IV 11/29/16 06:30 Heparin Sodium/ Dextrose 250 ml @ 0 mls/hr TITRATE IV 11/29/16 00:30 12/03/16 10:41 (Zosyn 3.375 Gm Premix) 50 ml @ 100 mls/hr Q6H IV 11/29/16 01:00 12/03/16 18:04 (Aspirin Chew) 162 mg DAILY CHEW 11/29/16 02:45 12/03/16 13:45 ([place] 5-325 Mg) 1 tab Q4H PRN OG-TUBE 11/29/16 09:00 (Pravachol) 40 mg DAILY PO 11/29/16 09:00 12/03/16 09:55 (Ativan Inj) 1 mg Q4H PRN IV PUSH 11/29/16 11:15 Fosphenytoin Sodium 100 mgpe 100 mgpe Q6H IV 11/30/16 22:00 12/03/16 16:27 (Precedex Inj/NS 250 ml Inj) 250 ml @ 0 mls/hr TITRATE IV 12/02/16 09:01 12/03/16 13:42 (Lasix Inj) 20 mg BID@09,18 IV PUSH 12/02/16 10:15 12/03/16 18:04 (Geodon Inj) 10 mg Q8H PRN IM 12/02/16 17:15 (Haldol Inj) 5 mg Q2H PRN IV 12/02/16 17:15 12/03/16 04:29 Insulin Aspart 1 1 DAILY@07,16 SQ 12/03/16 07:00 Potassium Chloride 100 ml @ 25 mls/hr ONCE ONCE IV 12/03/16 16:00 12/03/16 19:59 12/03/16 16:27 (KCl 40 Meq Premix Inj) 100 ml @ 25 mls/hr ONCE ONCE IV 12/03/16 22:00 12/04/16 01:59 (Inderal) 10 mg Q12HR PO 12/03/16 16:00 Vital Signs / I&O Vital Signs Date Time Temp Pulse Resp B/P Pulse Ox O2 Delivery O2 Flow Rate FiO2 12/03/16 18:00 90 12/03/16 16:00 97.8 77 22 135/67 97 12/03/16 16:00 77 12/03/16 14:00 98 12/03/16 12:00 87 12/03/16 12:00 98.0 87 21 151/72 90 12/03/16 10:03 92 Non-Rebreather 15.00 12/03/16 10:00 93 12/03/16 08:00 97.9 93 24 147/77 90 12/03/16 08:00 93 12/03/16 08:00 97.9 93 24 148/79 90 12/03/16 07:00 95 Non-Rebreather 15.00 12/03/16 06:00 94 12/03/16 04:00 97.7 89 27 147/77 92 12/03/16 04:00 89 12/03/16 02:00 92 12/03/16 00:00 93 12/03/16 00:00 98.1 93 25 134/74 92 12/02/16 22:00 93 12/02/16 20:00 93 12/02/16 20:00 97.8 93 26 140/83 97 12/02/16 19:41 96 Non-Rebreather 15.00 12/02/16 19:00 97 Non-Rebreather 15.00 I/O 12/02/16 12/02/16 12/02/16 12/03/16 12/03/16 12/03/16 07:00 15:00 23:00 07:00 15:00 23:00 Intake Total 597 ml 470 ml 528 ml 688 ml 581 ml Output Total 300 ml 1275 ml 2125 ml 950 ml 625 ml Balance 297 ml -805 ml -1597 ml -262 ml -44 ml Intake IV Total 597 ml 470 ml 528 ml 688 ml 581 ml Output Urine Total 300 ml 1275 ml 2125 ml 950 ml 625 ml # Bowel Movements 1 0 0 1 Physical Exam GENERAL: Agitated SKIN: Warm and dry. HEAD: Normocephalic. EYES: No scleral icterus. No injection or drainage. NECK: Supple, trachea midline. No JVD or lymphadenopathy. CARDIOVASCULAR: Irregular rate and rhythm without murmurs, gallops, or rubs. RESPIRATORY: Breath sounds equal bilaterally. No accessory muscle use. GASTROINTESTINAL: Abdomen soft, non-tender, nondistended. MUSCULOSKELETAL: No cyanosis, mild edema. Laboratory Laboratory Tests Test 12/03/16 05:30 White Blood Count 9.5 TH/MM3 Red Blood Count 3.62 MIL/MM3 Hemoglobin 11.9 GM/DL Hematocrit 35.8 % Mean Corpuscular Volume 99.0 FL Mean Corpuscular Hemoglobin 32.9 PG Mean Corpuscular Hemoglobin 33.3 % Concent Red Cell Distribution Width 16.8 % Platelet Count 107 TH/MM3 Mean Platelet Volume 7.1 FL Neutrophils (%) (Auto) 70.9 % Lymphocytes (%) (Auto) 21.1 % Monocytes (%) (Auto) 7.1 % Eosinophils (%) (Auto) 0.5 % Basophils (%) (Auto) 0.4 % Neutrophils # (Auto) 6.8 TH/MM3 Lymphocytes # (Auto) 2.0 TH/MM3 Monocytes # (Auto) 0.7 TH/MM3 Eosinophils # (Auto) 0.0 TH/MM3 Basophils # (Auto) 0.0 TH/MM3 CBC Comment DIFF FINAL Differential Comment Activated Partial 43.9 SEC Thromboplast Time Sodium Level 147 MEQ/L Potassium Level 3.3 MEQ/L Chloride Level 112 MEQ/L Carbon Dioxide Level 25.6 MEQ/L Anion Gap 9 MEQ/L Blood Urea Nitrogen 28 MG/DL Creatinine 1.54 MG/DL Estimat Glomerular Filtration 43 ML/MIN Rate Random Glucose 109 MG/DL Calcium Level 9.1 MG/DL Total Bilirubin 1.6 MG/DL Aspartate Amino Transf 48 U/L (AST/SGOT) Alanine Aminotransferase 38 U/L (ALT/SGPT) Alkaline Phosphatase 72 U/L Total Protein 5.8 GM/DL Albumin 2.7 GM/DL Imaging Last Impressions Chest X-Ray 12/03/16 0000 Signed Impressions: Service Date/Time: Saturday, December 03, 2016 09:35 - CONCLUSION: 1. Status post removal of endotracheal tube. No evidence of pneumothorax. 2. Scattered bilateral pulmonary infiltrates. Michael Pagan MD Head Magnetic Resonance Angiography 11/28/162130 Signed Impressions: Service Date/Time: Monday, November 28, 2016 23:27 - CONCLUSION: 1. 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 No acute abnormality. Edmond Chavis Jr., MD Head CT 11/28/16 1643 Signed Impressions: Service Date/Time: Monday, November 28, 2016 17:40 - CONCLUSION: Evidence for a previous head trauma with surgery as described above. There are no acute changes evident. Kev Louise MD FACR Lung Scan-VQ Nuclear Medicine 11/28/16 0000 Signed Impressions: Service Date/Time: Monday, November 28, 2016 23:58 - CONCLUSION: Normal examination. Edmond Chavis Jr., MD Lower Extremity Ultrasound 11/28/16 0000 Signed Impressions: Service Date/Time: Monday, November 28, 2016 19:22 - CONCLUSION: Normal examination. Lee Mcbride MD Brain MRI 11/28/16 0000 Signed Impressions: Service Date/Time: Monday, November 28, 2016 23:27 - CONCLUSION: 1. No acute intracranial abnormality. 2. Multiple sites of encephalomalacia as detailed above. 3. Chronic small vessel ischemic change. 4. Chronic paranasal sinus disease. Edmond Chavis Jr., MD Abdomen Ultrasound 11/28/16 0000 Signed Impressions: Service Date/Time: Monday, November 28, 2016 19:04 - CONCLUSION: Chronic-appearing renal disease. No acute findings Lee Mcbride MD Assessment and Plan Problem List: (1) PEA (Pulseless electrical activity) (2) Endotracheally intubated (3) Acute renal failure (4) Atrial fibrillation (5) PVD (peripheral vascular disease) (6) Seizure Assessment and Plan Continue current program. A fib rate controlled. Still quite confused. EEG suggestive of possible seizure. Neurology eval in progress. Continue monitoring. Misael Calderon MD December 03, 2016 18:24
[2016-12-04] VITALS (14 sets, daily range): BP systolic 110–155; BP diastolic 57–93; PULSE 78–124; RESP 24–34; TEMP 96.7–99; O2SAT 90–96
[2016-12-04] MEDS: DEXMEDETOMIDINE INJ 1,000 MCG in SODIUM CHLOR 0.9% 250 ML INJ 240 ML IV SCH ×2 (01:04→07:27)
[2016-12-04] MEDS: METOPROLOL TARTRATE 5 MG/5 ML VIAL IV PUSH SCH ×5 (01:04→23:01)
[2016-12-04] MEDS: PIPERACIL-TAZO 3.375 GM PREMIX 50 ML IV SCH ×4 (01:05→18:10)
[2016-12-04] MEDS: CHLORHEXIDINE GLUCONATE 2 % 1 PACK (2 CLOTHS) TOP SCH (03:30)
[2016-12-04] MEDS: FOSPHENYTOIN SODIUM 100 MG PE/2 ML VIAL IV SCH ×4 (04:45→21:52)
[2016-12-04] MEDS: INSULIN ASPART SUPPLEMENTAL SCALE SQ SCH ×2 (06:54→15:47)
[2016-12-04 07:01] LABS: AUTOMATED NEUTROPHIL # 7.6 TH/MM3 (1.8-7.7); BASOPHIL # 0.1 TH/MM3 (0-0.2); BASOPHIL % 0.5 % (0.0-2.0); EOSINOPHIL # 0.1 TH/MM3 (0-0.4); EOSINOPHIL % 0.9 % (0.0-4.0); HEMATOCRIT 35.2 % (39.0-51.0); HEMO FLAGS DIFF FINAL; LYMPH % 21.2 % (9.0-44.0); LYMPHOCYTE # 2.3 TH/MM3 (1.0-4.8); MEAN CELL VOLUME 99.1 FL (80.0-100.0); MEAN CORPUSCULAR HEMOGLOBIN 32.6 PG (27.0-34.0); MEAN CORPUSCULAR HGB CONC 32.9 % (32.0-36.0); MONO % 8.5 % (0.0-8.0); NEUT % 68.9 % (16.0-70.0); PLATELET COUNT 125 TH/MM3 (150-450); RED BLOOD COUNT 3.55 MIL/MM3 (4.50-5.90); RED CELL DISTRIBUTION WIDTH 16.9 % (11.6-17.2); WHITE BLOOD COUNT 11.1 TH/MM3 (4.0-11.0)
[2016-12-04 07:32] LABS: ANION GAP 9 MEQ/L (5-15); AST (GOT) 36 U/L (15-37); BICARBONATE 27.3 MEQ/L (21.0-32.0); BLOOD UREA NITROGEN 32 MG/DL (7-18); CHLORIDE 111 MEQ/L (98-107); GLOMERULAR FILTRATION RATE 40 ML/MIN (>89); MAGNESIUM 1.9 MG/DL (1.5-2.5); SODIUM (NA) 147 MEQ/L (136-145)
[2016-12-04 07:35] LABS: APTT (PATIENT) 38.3 SEC (24.3-30.1)
[2016-12-04 07:36] LABS: ALKALINE PHOSPHATASE 81 U/L (45-117); ALT (GPT) 40 U/L (12-78); TOTAL BILIRUBIN ADULT 1.6 MG/DL (0.2-1.0)
[2016-12-04] MEDS: DOCUSATE SODIUM 100 MG/10 ML UDC G-TUBE SCH ×2 (07:45→20:27)
[2016-12-04] MEDS: PROPRANOLOL HCL 10 MG TAB PO SCH ×2 (07:45→20:27)
[2016-12-04] MEDS: SODIUM CHLORIDE 0.9% FLUSH 10 ML FLUSH SCH ×2 (07:45→21:00)
[2016-12-04] MEDS: CHLORHEXIDINE 0.12% (ORAL KIT) 15 ML CUP MT SCH ×2 (07:45→20:27)
[2016-12-04] MEDS: FUROSEMIDE 20 MG/2 ML VIAL IV PUSH SCH ×2 (07:52→18:10)
[2016-12-04] MEDS: PANTOPRAZOLE SODIUM 40 MG VIAL IV SCH (07:52)
[2016-12-04] MEDS: HEPARIN-D5W INJ 250 ML IV SCH (08:16)
--- NOTE | 2016-12-04 08:39 | RADRPT ---
EXAM DATE/TIME: 12/04/2016 08:14 [facility] COMPARISON: CHEST SINGLE AP, December 03, 2016, 9:35. INDICATIONS : Respiratory failure. MEDICAL HISTORY : Congestive heart failure. Hypercholesterolemia. Hypertension. SURGICAL HISTORY : Tonsillectomy. Craniotomy. Cholecystectomy. ENCOUNTER: Subsequent ACUITY: 1 week PAIN SCORE: Non-responsive. LOCATION: Bilateral chest FINDINGS: A single view of the chest demonstrates left upper lobe and bibasilar airspace disease. Right jugular central line in stable position. Heart enlarged. Osseous structures are intact. CONCLUSION: Slight worsening airspace disease greater in the left upper lobe. Georges Troncoso MD on December 04, 2016 at 8:35 Board Certified Radiologist. This report was verified electronically.
[2016-12-04] MEDS: HALOPERIDOL LACTATE 5 MG/ML AMP IV PRN ×3 (08:54→21:52)
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
[2016-12-04 13:22] LABS: APTT (PATIENT) 43.2 SEC (24.3-30.1)
[2016-12-04] MEDS: ZIPRASIDONE MESYLATE 20 MG VIAL IM PRN (15:45)
[2016-12-04] MEDS: metroNIDAZOLE 500 MG INJ 100 ML IV SCH (17:00)
--- NOTE | 2016-12-04 18:55 | PD.CARD.PN ---
Subjective Subjective Remarks Confused, alert but disoriented, no MS improvement Objective Medications Current Medications Medications (Trade) Dose Ordered Sig/Elvin Route Start Time Stop Time Status Last Admin (Peridex 0.12% Liq) 15 ml BID@08,20 MT 11/28/16 20:00 12/04/16 07:45 (NS Flush) 2 ml UNSCH PRN .XX 11/28/16 19:15 (NS Flush) 2 ml BID .XX 11/28/16 21:00 12/04/16 07:45 (Protonix Inj) 40 mg DAILY IV 11/29/16 09:00 12/04/16 07:52 (Zofran Inj) 4 mg Q6H PRN IV 11/28/16 19:15 (Colace Liq) 100 mg Q12H G-TUBE 11/28/16 21:00 12/03/16 09:55 Miscellaneous Information 1 Q361D XX 11/28/16 19:15 (Chlorhexidine 2% Cloth) Taper DAILY@04 TOP 11/29/16 04:00 11/25/17 03:59 12/03/16 04:00 (Chlorhexidine 2% Cloth) 3 pack UNSCH PRN TOP 11/28/16 19:15 (D50w (Vial) Inj) 25 ml UNSCH PRN IV PUSH 11/28/16 19:15 Glucagon 1 mg 1 mg UNSCH PRN OTHER 11/28/16 19:15 (Levophed-Dextrose Drip) 250 ml @ 0 mls/hr TITRATE IV 11/28/16 21:30 (Brethine Inj) 1 mg UNSCH PRN SQ 11/28/16 21:30 (Heparin Inj) 5,000 units UNSCH PRN IV 11/29/16 06:30 Heparin Sodium (Porcine) 2500 units 2,500 units UNSCH PRN IV 11/29/16 06:30 Heparin Sodium/ Dextrose 250 ml @ 0 mls/hr TITRATE IV 11/29/16 00:30 12/04/16 08:16 (Zosyn 3.375 Gm Premix) 50 ml @ 100 mls/hr Q6H IV 11/29/16 01:00 12/04/16 18:10 (Aspirin Chew) 162 mg DAILY CHEW 11/29/16 02:45 12/03/16 13:45 ([place] 5-325 Mg) 1 tab Q4H PRN OG-TUBE 11/29/16 09:00 (Pravachol) 40 mg DAILY PO 11/29/16 09:00 12/03/16 09:55 (Ativan Inj) 1 mg Q4H PRN IV PUSH 11/29/16 11:15 Fosphenytoin Sodium 100 mgpe 100 mgpe Q6H IV 11/30/16 22:00 12/04/16 15:56 (Precedex Inj/NS 250 ml Inj) 250 ml @ 0 mls/hr TITRATE IV 12/02/16 09:01 12/04/16 07:27 (Lasix Inj) 20 mg BID@18 IV PUSH 12/02/16 10:15 12/04/16 18:10 (Geodon Inj) 10 mg Q8H PRN IM 12/02/16 17:15 12/04/16 15:45 (Haldol Inj) 5 mg Q2H PRN IV 12/02/16 17:15 12/04/16 12:58 (NovoLOG SUPPLEMENTAL SCALE) 1 DAILY@07,16 SQ 12/03/16 07:00 (Inderal) 10 mg Q12HR PO 12/03/16 16:00 Metoprolol Tartrate 5 mg 5 mg Q6HR IV PUSH 12/04/16 00:00 12/04/16 06:13 (Flagyl 500 Mg Inj) 100 ml @ 100 mls/hr Q8H IV 12/04/16 16:30 12/04/16 17:00 Vital Signs / I&O Vital Signs Date Time Temp Pulse Resp B/P Pulse Ox O2 Delivery O2 Flow Rate FiO2 12/04/16 18:00 100 12/04/16 16:00 98.2 102 34 150/76 90 12/04/16 16:00 102 12/04/16 14:00 82 12/04/16 12:00 79 12/04/16 12:00 98.8 79 24 110/58 93 12/04/16 10:00 89 12/04/16 08:01 93 Partial Rebreather 12.00 12/04/16 08:00 98.1 80 30 119/65 94 12/04/16 08:00 80 12/04/16 07:00 97 Partial Non-Rebreather 12.00 12/04/16 06:00 84 12/04/16 04:00 98 12/04/16 04:00 99.0 98 26 127/62 94 12/04/16 02:00 78 12/04/16 00:00 96.7 90 27 116/57 96 12/04/16 00:00 90 12/03/16 22:00 80 12/03/16 20:00 95.5 92 27 125/79 96 12/03/16 20:00 92 12/03/16 19:00 97 Partial Non-Rebreather 12.00 I/O 12/03/16 12/03/16 12/03/16 12/04/16 12/04/16 12/04/16 07:00 15:00 23:00 07:00 15:00 23:00 Intake Total 688 ml 581 ml 625 ml 752 ml 663 ml Output Total 950 ml 625 ml 2150 ml 575 ml 1150 ml Balance -262 ml -44 ml -1525 ml 177 ml -487 ml Intake IV Total 688 ml 581 ml 625 ml 752 ml 663 ml Output Urine Total 950 ml 625 ml 2150 ml 575 ml 1150 ml # Bowel Movements 0 1 0 0 0 Physical Exam GENERAL: Confused, in NAD SKIN: Warm and dry. HEAD: Normocephalic. EYES: No scleral icterus. No injection or drainage. NECK: Supple, trachea midline. No JVD or lymphadenopathy. CARDIOVASCULAR: Irregular rate and rhythm without murmurs, gallops, or rubs. RESPIRATORY: Breath sounds equal bilaterally. No accessory muscle use. GASTROINTESTINAL: Abdomen soft, non-tender, nondistended. MUSCULOSKELETAL: No cyanosis, mild edema. Laboratory Laboratory Tests Test 12/04/16 12/04/16 12/04/16 06:20 06:45 13:00 Activated Partial 38.3 SEC 43.2 SEC Thromboplast Time White Blood Count 11.1 TH/MM3 Red Blood Count 3.55 MIL/MM3 Hemoglobin 11.6 GM/DL Hematocrit 35.2 % Mean Corpuscular Volume 99.1 FL Mean Corpuscular Hemoglobin 32.6 PG Mean Corpuscular Hemoglobin 32.9 % Concent Red Cell Distribution Width 16.9 % Platelet Count 125 TH/MM3 Mean Platelet Volume 7.7 FL Neutrophils (%) (Auto) 68.9 % Lymphocytes (%) (Auto) 21.2 % Monocytes (%) (Auto) 8.5 % Eosinophils (%) (Auto) 0.9 % Basophils (%) (Auto) 0.5 % Neutrophils # (Auto) 7.6 TH/MM3 Lymphocytes # (Auto) 2.3 TH/MM3 Monocytes # (Auto) 0.9 TH/MM3 Eosinophils # (Auto) 0.1 TH/MM3 Basophils # (Auto) 0.1 TH/MM3 CBC Comment DIFF FINAL Differential Comment Sodium Level 147 MEQ/L Potassium Level 4.0 MEQ/L Chloride Level 111 MEQ/L Carbon Dioxide Level 27.3 MEQ/L Anion Gap 9 MEQ/L Blood Urea Nitrogen 32 MG/DL Creatinine 1.65 MG/DL Estimat Glomerular Filtration 40 ML/MIN Rate Random Glucose 109 MG/DL Calcium Level 8.8 MG/DL Phosphorus Level 2.7 MG/DL Magnesium Level 1.9 MG/DL Total Bilirubin 1.6 MG/DL Aspartate Amino Transf 36 U/L (AST/SGOT) Alanine Aminotransferase 40 U/L (ALT/SGPT) Alkaline Phosphatase 81 U/L Total Protein 5.9 GM/DL Albumin 2.6 GM/DL Imaging Last Impressions Chest X-Ray 12/04/16 0000 Signed Impressions: Service Date/Time: Sunday, December 04, 2016 08:14 - CONCLUSION: Slight worsening airspace disease greater in the left upper lobe. Georges Troncoso MD Head Magnetic Resonance Angiography 11/28/162130 Signed Impressions: Service Date/Time: Monday, November 28, 2016 23:27 - CONCLUSION: 1. 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 No acute abnormality. Edmond Chavis Jr., MD Head CT 11/28/16 1643 Signed Impressions: Service Date/Time: Monday, November 28, 2016 17:40 - CONCLUSION: Evidence for a previous head trauma with surgery as described above. There are no acute changes evident. Kev Louise MD FACR Lung Scan-V Nuclear Medicine 11/28/16 0000 Signed Impressions: Service Date/Time: Monday, November 28, 2016 23:58 - CONCLUSION: Normal examination. Edmond Chavis Jr., MD Lower Extremity Ultrasound 11/28/16 0000 Signed Impressions: Service Date/Time: Monday, November 28, 2016 19:22 - CONCLUSION: Normal examination. Lee Mcbride MD Brain MRI 11/28/16 0000 Signed Impressions: Service Date/Time: Monday, November 28, 2016 23:27 - CONCLUSION: 1. No acute intracranial abnormality. 2. Multiple sites of encephalomalacia as detailed above. 3. Chronic small vessel ischemic change. 4. Chronic paranasal sinus disease. Edmond Chavis Jr., MD Abdomen Ultrasound 11/28/16 0000 Signed Impressions: Service Date/Time: Monday, November 28, 2016 19:04 - CONCLUSION: Chronic-appearing renal disease. No acute findings Lee Mcbride MD Assessment and Plan Problem List: (1) PEA (Pulseless electrical activity) (2) Endotracheally intubated (3) Acute renal failure (4) Atrial fibrillation (5) PVD (peripheral vascular disease) (6) Seizure Assessment and Plan Continue current program. A fib rate controlled. MS not improving. EEG suggestive of possible seizure. Neurology eval. Continue monitoring. Recommend to continue conservative management. Misael Calderon MD December 04, 2016 18:55
[2016-12-04 19:23] LABS: APTT (PATIENT) 42.1 SEC (24.3-30.1)
[2016-12-04] MEDS: SODIUM CHLORIDE 0.9% FLUSH 10 ML FLUSH PRN ×2 (21:52→23:02)
[2016-12-05] VITALS (14 sets, daily range): BP systolic 121–153; BP diastolic 60–78; PULSE 86–119; RESP 18–30; TEMP 97.5–99.3; O2SAT 92–100
[2016-12-05] MEDS: metroNIDAZOLE 500 MG INJ 100 ML IV SCH ×4 (00:23→23:34)
[2016-12-05] MEDS: PIPERACIL-TAZO 3.375 GM PREMIX 50 ML IV SCH ×2 (01:00→06:30)
[2016-12-05] MEDS: FOSPHENYTOIN SODIUM 100 MG PE/2 ML VIAL IV SCH ×4 (03:52→22:28)
[2016-12-05] MEDS: CHLORHEXIDINE GLUCONATE 2 % 1 PACK (2 CLOTHS) TOP SCH (03:52)
[2016-12-05 04:18] LABS: ALT (GPT) 40 U/L (12-78); ANION GAP 12 MEQ/L (5-15); AST (GOT) 34 U/L (15-37); BICARBONATE 27.4 MEQ/L (21.0-32.0); BLOOD UREA NITROGEN 39 MG/DL (7-18); CHLORIDE 111 MEQ/L (98-107); GLOMERULAR FILTRATION RATE 39 ML/MIN (>89); MAGNESIUM 1.8 MG/DL (1.5-2.5); POTASSIUM 3.3 MEQ/L (3.5-5.1); SODIUM (NA) 150 MEQ/L (136-145)
[2016-12-05 04:20] LABS: ALKALINE PHOSPHATASE 103 U/L (45-117); TOTAL BILIRUBIN ADULT 1.6 MG/DL (0.2-1.0)
[2016-12-05 04:23] LABS: AUTOMATED NEUTROPHIL # 8.4 TH/MM3 (1.8-7.7); BASOPHIL # 0.1 TH/MM3 (0-0.2); BASOPHIL % 0.6 % (0.0-2.0); EOSINOPHIL # 0.1 TH/MM3 (0-0.4); EOSINOPHIL % 0.9 % (0.0-4.0); HEMATOCRIT 35.7 % (39.0-51.0); LYMPH % 23.5 % (9.0-44.0); MEAN CELL VOLUME 99.5 FL (80.0-100.0); MEAN CORPUSCULAR HEMOGLOBIN 32.8 PG (27.0-34.0); MONO % 10.3 % (0.0-8.0); NEUT % 64.7 % (16.0-70.0); PLATELET COUNT 155 TH/MM3 (150-450); RED BLOOD COUNT 3.59 MIL/MM3 (4.50-5.90); RED CELL DISTRIBUTION WIDTH 17.4 % (11.6-17.2)
[2016-12-05 04:25] LABS: HEMO FLAGS AUTO DIFF
[2016-12-05 04:28] LABS: APTT (PATIENT) 41.3 SEC (24.3-30.1)
[2016-12-05] MEDS: METOPROLOL TARTRATE 5 MG/5 ML VIAL IV PUSH SCH ×4 (05:06→23:35)
[2016-12-05 05:40] LABS: BANDS 2 % (0-6); METAMYELOCYTES 5 % (0-1); NEUTROPHIL # MANUAL DIFF 8.1 TH/MM3 (1.8-7.7); POLYS (SEG NEUTROPHILS) 55 % (16-70); WBC DIFF SAMPLE 100
[2016-12-05 05:41] LABS: OVALOCYTES 1+ (NORMAL); PLATELET ESTIMATE SMEAR NORMAL (NORMAL); PLATELET MORPHOLOGY NORMAL (NORMAL); SCAN/DIFF FINAL DIFF MANUAL
[2016-12-05] MEDS: INSULIN ASPART SUPPLEMENTAL SCALE SQ SCH ×2 (06:30→15:44)
[2016-12-05] MEDS: FUROSEMIDE 20 MG/2 ML VIAL IV PUSH SCH (08:02)
[2016-12-05] MEDS: ASPIRIN 81 MG CHEW TAB CHEW SCH (08:02)
[2016-12-05] MEDS: CHLORHEXIDINE 0.12% (ORAL KIT) 15 ML CUP MT SCH ×2 (08:02→19:53)
[2016-12-05] MEDS: DOCUSATE SODIUM 100 MG/10 ML UDC G-TUBE SCH ×2 (08:02→19:51)
[2016-12-05] MEDS: SODIUM CHLORIDE 0.9% FLUSH 10 ML FLUSH SCH ×2 (08:02→19:53)
[2016-12-05] MEDS: PANTOPRAZOLE SODIUM 40 MG VIAL IV SCH (08:02)
[2016-12-05] MEDS: PRAVASTATIN SOD 40 MG TAB PO SCH (08:02)
[2016-12-05] MEDS: PROPRANOLOL HCL 10 MG TAB PO SCH ×2 (08:02→19:51)
[2016-12-05] MEDS: HEPARIN-D5W INJ 250 ML IV SCH (08:03)
[2016-12-05] MEDS ORDERED: POTASSIUM CHLOR 40 MEQ PREMIX 100 ML IV ONE (08:30)
[2016-12-05] MEDS ORDERED: MAGNESIUM SULFATE 2 GM/NS 100 ML IV ONE ×2 (08:30)
[2016-12-05] MEDS: ZIPRASIDONE MESYLATE 20 MG VIAL IM PRN ×2 (08:45→19:53)
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
[2016-12-05] MEDS: RESP: ALBUTEROL 2.5 MG/3 ML NEB (PRN) NEB (15:45)
--- NOTE | 2016-12-05 16:12 | PD.CARD.PN ---
Subjective Subjective Remarks Confused, but more alert, in NAD Objective Medications Current Medications Medications (Trade) Dose Ordered Sig/Elvin Route Start Time Stop Time Status Last Admin (Peridex 0.12% Liq) 15 ml BID@08,20 MT 11/28/16 20:00 12/05/16 08:02 (NS Flush) 2 ml UNSCH PRN .XX 11/28/16 19:15 12/04/16 23:02 (NS Flush) 2 ml BID .XX 11/28/16 21:00 12/05/16 08:02 (Protonix Inj) 40 mg DAILY IV 11/29/16 09:00 12/05/16 08:02 (Zofran Inj) 4 mg Q6H PRN IV 11/28/16 19:15 (Colace Liq) 100 mg Q12H G-TUBE 11/28/16 21:00 12/03/16 09:55 Miscellaneous Information 1 Q361D XX 11/28/16 19:15 (Chlorhexidine 2% Cloth) Taper DAILY@04 TOP 11/29/16 04:00 11/25/17 03:59 12/03/16 04:00 (Chlorhexidine 2% Cloth) 3 pack UNSCH PRN TOP 11/28/16 19:15 (D50w (Vial) Inj) 25 ml UNSCH PRN IV PUSH 11/28/16 19:15 Glucagon 1 mg 1 mg UNSCH PRN OTHER 11/28/16 19:15 (Levophed-Dextrose Drip) 250 ml @ 0 mls/hr TITRATE IV 11/28/16 21:30 (Brethine Inj) 1 mg UNSCH PRN SQ 11/28/16 21:30 (Heparin Inj) 5,000 units UNSCH PRN IV 11/29/16 06:30 Heparin Sodium (Porcine) 2500 units 2,500 units UNSCH PRN IV 11/29/16 06:30 (Heparin-D5W Inj) 250 ml @ 0 mls/hr TITRATE IV 11/29/16 00:30 12/05/16 08:03 (Aspirin Chew) 162 mg DAILY CHEW 11/29/16 02:45 12/03/16 13:45 ([place] 5-325 Mg) 1 tab Q4H PRN OG-TUBE 11/29/16 09:00 (Pravachol) 40 mg DAILY PO 11/29/16 09:00 12/03/16 09:55 (Ativan Inj) 1 mg Q4H PRN IV PUSH 11/29/16 11:15 Fosphenytoin Sodium 100 mgpe 100 mgpe Q6H IV 11/30/16 22:00 12/05/16 15:44 (Precedex Inj/NS 250 ml Inj) 250 ml @ 0 mls/hr TITRATE IV 12/02/16 09:01 12/04/16 07:27 (Geodon Inj) 10 mg Q8H PRN IM 12/02/16 17:15 12/05/16 08:45 (Haldol Inj) 5 mg Q2H PRN IV 12/02/16 17:15 12/04/16 21:52 (NovoLOG SUPPLEMENTAL SCALE) 1 DAILY@07,16 SQ 12/03/16 07:00 (Inderal) 10 mg Q12HR PO 12/03/16 16:00 Metoprolol Tartrate 5 mg 5 mg Q6HR IV PUSH 12/04/16 00:00 12/05/16 11:27 (Flagyl 500 Mg Inj) 100 ml @ 100 mls/hr Q8H IV 12/04/16 16:30 12/05/16 15:44 (Lasix Inj) 20 mg DAILY IV PUSH 12/06/16 09:00 Vital Signs / I&O Vital Signs Date Time Temp Pulse Resp B/P Pulse Ox O2 Delivery O2 Flow Rate FiO2 12/05/16 16:00 99.1 119 30 153/78 92 12/05/16 16:00 119 12/05/16 14:00 99 12/05/16 12:20 92 Venturi Mask 6.00 50 12/05/16 12:00 92 Venturi Mask 6.00 50 12/05/16 12:00 86 12/05/16 12:00 99.1 86 25 121/66 100 12/05/16 10:00 102 12/05/16 08:00 99.3 106 30 145/60 99 12/05/16 08:00 106 12/05/16 07:00 100 Partial Rebreather 12.00 12/05/16 07:00 99 Partial Non-Rebreather 12.00 12/05/16 06:00 94 12/05/16 04:00 97.5 96 21 136/70 100 12/05/16 04:00 96 12/05/16 02:00 107 12/05/16 00:00 110 12/05/16 00:00 98.2 110 23 133/72 94 12/04/16 22:00 117 12/04/16 20:00 124 12/04/16 20:00 98.0 124 25 155/93 94 12/04/16 19:45 93 Partial Rebreather 12.00 12/04/16 19:40 94 Partial Non-Rebreather 12.00 12/04/16 18:00 100 I/O 12/04/16 12/04/16 12/04/16 12/05/16 12/05/16 12/05/16 07:00 15:00 23:00 07:00 15:00 23:00 Intake Total 752 ml 663 ml 466 ml 305 ml 472 ml Output Total 575 ml 1150 ml 1850 ml 1100 ml 1300 ml Balance 177 ml -487 ml -1384 ml -795 ml -828 ml Intake IV Total 752 ml 663 ml 466 ml 305 ml 472 ml Output Urine Total 575 ml 1150 ml 1850 ml 1100 ml 1300 ml # Bowel Movements 0 0 0 2 0 Physical Exam GENERAL: Confused, in NAD SKIN: Warm and dry. HEAD: Normocephalic. EYES: No scleral icterus. No injection or drainage. NECK: Supple, trachea midline. No JVD or lymphadenopathy. CARDIOVASCULAR: Irregular rate and rhythm without murmurs, gallops, or rubs. RESPIRATORY: Breath sounds equal bilaterally. No accessory muscle use. GASTROINTESTINAL: Abdomen soft, non-tender, nondistended. MUSCULOSKELETAL: No cyanosis, mild edema. Laboratory Laboratory Tests Test 12/04/16 12/05/16 18:40 03:40 Activated Partial 42.1 SEC 41.3 SEC Thromboplast Time White Blood Count 13.0 TH/MM3 Red Blood Count 3.59 MIL/MM3 Hemoglobin 11.8 GM/DL Hematocrit 35.7 % Mean Corpuscular Volume 99.5 FL Mean Corpuscular Hemoglobin 32.8 PG Mean Corpuscular Hemoglobin 33.0 % Concent Red Cell Distribution Width 17.4 % Platelet Count 155 TH/MM3 Mean Platelet Volume 7.8 FL Neutrophils (%) (Auto) 64.7 % Lymphocytes (%) (Auto) 23.5 % Monocytes (%) (Auto) 10.3 % Eosinophils (%) (Auto) 0.9 % Basophils (%) (Auto) 0.6 % Neutrophils # (Auto) 8.4 TH/MM3 Lymphocytes # (Auto) 3.0 TH/MM3 Monocytes # (Auto) 1.3 TH/MM3 Eosinophils # (Auto) 0.1 TH/MM3 Basophils # (Auto) 0.1 TH/MM3 CBC Comment AUTO DIFF Differential Total Cells 100 Counted Neutrophils % (Manual) 55 % Band Neutrophils % 2 % Lymphocytes % 37 % Monocytes % 1 % Neutrophils # (Manual) 8.1 TH/MM3 Metamyelocytes 5 % Differential Comment FINAL DIFF MANUAL Platelet Estimate NORMAL Platelet Morphology Comment NORMAL Ovalocytes 1+ Sodium Level 150 MEQ/L Potassium Level 3.3 MEQ/L Chloride Level 111 MEQ/L Carbon Dioxide Level 27.4 MEQ/L Anion Gap 12 MEQ/L Blood Urea Nitrogen 39 MG/DL Creatinine 1.71 MG/DL Estimat Glomerular Filtration 39 ML/MIN Rate Random Glucose 115 MG/DL Calcium Level 9.2 MG/DL Phosphorus Level 2.7 MG/DL Magnesium Level 1.8 MG/DL Total Bilirubin 1.6 MG/DL Aspartate Amino Transf 34 U/L (AST/SGOT) Alanine Aminotransferase 40 U/L (ALT/SGPT) Alkaline Phosphatase 103 U/L Total Protein 6.2 GM/DL Albumin 2.8 GM/DL Imaging Last Impressions Chest X-Ray 12/04/16 0000 Signed Impressions: Service Date/Time: Sunday, December 04, 2016 08:14 - CONCLUSION: Slight worsening airspace disease greater in the left upper lobe. Georges Troncoso MD Head Magnetic Resonance Angiography 11/28/162130 Signed Impressions: Service Date/Time: Monday, November 28, 2016 23:27 - CONCLUSION: 1. 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 No acute abnormality. Edmond Chavis Jr., MD Head CT 11/28/16 1643 Signed Impressions: Service Date/Time: Monday, November 28, 2016 17:40 - CONCLUSION: Evidence for a previous head trauma with surgery as described above. There are no acute changes evident. Kev Louise MD FACR Lung Scan-V Nuclear Medicine 11/28/16 0000 Signed Impressions: Service Date/Time: Monday, November 28, 2016 23:58 - CONCLUSION: Normal examination. Edmond Chavis Jr., MD Lower Extremity Ultrasound 11/28/16 Signed Impressions: Service Date/Time: Monday, November 28, 2016 19:22 - CONCLUSION: Normal examination. Lee Mcbride MD Brain MRI 11/28/16 Signed Impressions: Service Date/Time: Monday, November 28, 2016 23:27 - CONCLUSION: 1. No acute intracranial abnormality. 2. Multiple sites of encephalomalacia as detailed above. 3. Chronic small vessel ischemic change. 4. Chronic paranasal sinus disease. Edmond Chavis Jr., MD Abdomen Ultrasound 11/28/16 Signed Impressions: Service Date/Time: Monday, November 28, 2016 19:04 - CONCLUSION: Chronic-appearing renal disease. No acute findings Lee Mcbride MD Assessment and Plan Problem List: (1) PEA (Pulseless electrical activity) (2) Endotracheally intubated (3) Acute renal failure (4) Atrial fibrillation (5) PVD (peripheral vascular disease) (6) Seizure Assessment and Plan Continue current program. A fib rate controlled. EEG suggestive of possible seizure, evaluated by neurology. Continue monitoring. I recommend to continue conservative management. Failed swallowing evaluation, not taking PO meds yet. Misael Calderon MD December 05, 2016 16:12
[2016-12-06] VITALS (14 sets, daily range): BP systolic 129–147; BP diastolic 69–79; PULSE 97–122; RESP 24–29; TEMP 98.3–99.3; O2SAT 92–100
[2016-12-06] MEDS: FOSPHENYTOIN SODIUM 100 MG PE/2 ML VIAL IV SCH ×4 (03:29→21:08)
[2016-12-06] MEDS: CHLORHEXIDINE GLUCONATE 2 % 1 PACK (2 CLOTHS) TOP SCH (03:30)
[2016-12-06] MEDS: SODIUM CHLORIDE 0.9% FLUSH 10 ML FLUSH PRN (03:30)
[2016-12-06 03:52] LABS: AUTOMATED NEUTROPHIL # 9.8 TH/MM3 (1.8-7.7); BASOPHIL # 0.2 TH/MM3 (0-0.2); BASOPHIL % 1.2 % (0.0-2.0); EOSINOPHIL # 0.2 TH/MM3 (0-0.4); HEMATOCRIT 36.2 % (39.0-51.0); LYMPH % 22.1 % (9.0-44.0); LYMPHOCYTE # 3.3 TH/MM3 (1.0-4.8); MEAN CELL VOLUME 99.6 FL (80.0-100.0); MEAN CORPUSCULAR HGB CONC 34.1 % (32.0-36.0); MONO % 9.5 % (0.0-8.0); NEUT % 66.2 % (16.0-70.0); PLATELET COUNT 180 TH/MM3 (150-450); RED BLOOD COUNT 3.63 MIL/MM3 (4.50-5.90); RED CELL DISTRIBUTION WIDTH 17.6 % (11.6-17.2); WHITE BLOOD COUNT 14.8 TH/MM3 (4.0-11.0)
[2016-12-06 03:55] LABS: HEMO FLAGS AUTO DIFF
[2016-12-06 03:59] LABS: APTT (PATIENT) 43.2 SEC (24.3-30.1)
[2016-12-06 04:22] LABS: ANION GAP 9 MEQ/L (5-15); AST (GOT) 24 U/L (15-37); BICARBONATE 29.2 MEQ/L (21.0-32.0); BLOOD UREA NITROGEN 39 MG/DL (7-18); CHLORIDE 113 MEQ/L (98-107); GLOMERULAR FILTRATION RATE 43 ML/MIN (>89); POTASSIUM 3.5 MEQ/L (3.5-5.1); SODIUM (NA) 151 MEQ/L (136-145)
[2016-12-06 04:27] LABS: ALKALINE PHOSPHATASE 106 U/L (45-117); ALT (GPT) 35 U/L (12-78); TOTAL BILIRUBIN ADULT 1.2 MG/DL (0.2-1.0)
[2016-12-06 04:36] LABS: CORRECTED NUCLEATED RBC 1 /100 WBC (0-0); MYELOCYTES 2 % (0-0); POLYS (SEG NEUTROPHILS) 71 % (16-70); PROMYELOCYTES 1 % (0-0); WBC DIFF SAMPLE 100
[2016-12-06 04:37] LABS: PLATELET ESTIMATE SMEAR NORMAL (NORMAL); PLATELET MORPHOLOGY NORMAL (NORMAL); SCAN/DIFF FINAL DIFF MANUAL
[2016-12-06 04:38] LABS: OVALOCYTES 1+ (NORMAL)
[2016-12-06] MEDS: METOPROLOL TARTRATE 5 MG/5 ML VIAL IV PUSH SCH ×3 (05:55→18:03)
[2016-12-06] MEDS: INSULIN ASPART SUPPLEMENTAL SCALE SQ SCH ×2 (06:35→16:00)
[2016-12-06] MEDS: FUROSEMIDE 20 MG/2 ML VIAL IV PUSH SCH (08:05)
[2016-12-06] MEDS: DOCUSATE SODIUM 100 MG/10 ML UDC G-TUBE SCH ×2 (08:05→21:07)
[2016-12-06] MEDS: ASPIRIN 81 MG CHEW TAB CHEW SCH (08:05)
[2016-12-06] MEDS: CHLORHEXIDINE 0.12% (ORAL KIT) 15 ML CUP MT SCH ×2 (08:05→21:05)
[2016-12-06] MEDS: metroNIDAZOLE 500 MG INJ 100 ML IV SCH ×2 (08:05→16:27)
[2016-12-06] MEDS: SODIUM CHLORIDE 0.9% FLUSH 10 ML FLUSH SCH ×2 (08:05→21:05)
[2016-12-06] MEDS: PANTOPRAZOLE SODIUM 40 MG VIAL IV SCH (08:06)
[2016-12-06] MEDS: PRAVASTATIN SOD 40 MG TAB PO SCH (08:06)
[2016-12-06] MEDS: PROPRANOLOL HCL 10 MG TAB PO SCH ×2 (08:06→21:08)
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
[2016-12-06] MEDS ORDERED: LEVOFLOXACIN 500 MG PREMIX INJ 100 ML IV ONE (12:00)
--- NOTE | 2016-12-06 13:00 | RADRPT ---
EXAM DATE/TIME: 12/06/2016 12:27 [facility] COMPARISON: No previous studies available for comparison. INDICATIONS : Nasogastric tube placement. MEDICAL HISTORY : colorectal cancer SURGICAL HISTORY : Cholecystectomy. rectal sx, colon resection ENCOUNTER: Initial ACUITY: 1 week PAIN SCORE: Non-responsive. LOCATION: Bilateral abdomen FINDINGS: Examination of the abdomen demonstrates a normal bowel gas pattern. No free air is identified. No o rganomegaly is evident. Osseous structures are intact. Nasogastric tube is in the stomach. CONCLUSION: No evidence of obstruction. Nasogastric tube in the stomach Ulisses Tavarez MD on December 06, 2016 at 12:58 Board Certified Radiologist. This report was verified electronically.
[2016-12-06] MEDS: HEPARIN-D5W INJ 250 ML IV SCH (13:16)
--- NOTE | 2016-12-06 20:33 | PD.CARD.PN ---
Subjective Subjective Remarks Somnolent, less responsive Objective Medications Current Medications Medications (Trade) Dose Ordered Sig/Elvin Route Start Time Stop Time Status Last Admin (Peridex 0.12% Liq) 15 ml BID@08,20 MT 11/28/16 20:00 12/06/16 08:05 (NS Flush) 2 ml UNSCH PRN .XX 11/28/16 19:15 12/06/16 03:30 (NS Flush) 2 ml BID .XX 11/28/16 21:00 12/06/16 08:05 (Protonix Inj) 40 mg DAILY IV 11/29/16 09:00 12/06/16 08:06 (Zofran Inj) 4 mg Q6H PRN IV 11/28/16 19:15 (Colace Liq) 100 mg Q12H G-TUBE 11/28/16 21:00 12/03/16 09:55 Miscellaneous Information 1 Q361D XX 11/28/16 19:15 (Chlorhexidine 2% Cloth) Taper DAILY@04 TOP 11/29/16 04:00 11/25/17 03:59 12/03/16 04:00 (Chlorhexidine 2% Cloth) 3 pack UNSCH PRN TOP 11/28/16 19:15 (D50w (Vial) Inj) 25 ml UNSCH PRN IV PUSH 11/28/16 19:15 Glucagon 1 mg 1 mg UNSCH PRN OTHER 11/28/16 19:15 (Levophed-Dextrose Drip) 250 ml @ 0 mls/hr TITRATE IV 11/28/16 21:30 (Brethine Inj) 1 mg UNSCH PRN SQ 11/28/16 21:30 (Heparin Inj) 5,000 units UNSCH PRN IV 11/29/16 06:30 Heparin Sodium (Porcine) 2500 units 2,500 units UNSCH PRN IV 11/29/16 06:30 (Heparin-D5W Inj) 250 ml @ 0 mls/hr TITRATE IV 11/29/16 00:30 12/06/16 13:16 (Aspirin Chew) 162 mg DAILY CHEW 11/29/16 02:45 12/03/16 13:45 ([place] 5-325 Mg) 1 tab Q4H PRN OG-TUBE 11/29/16 09:00 (Pravachol) 40 mg DAILY PO 11/29/16 09:00 12/03/16 09:55 (Ativan Inj) 1 mg Q4H PRN IV PUSH 11/29/16 11:15 Fosphenytoin Sodium 100 mgpe 100 mgpe Q6H IV 11/30/16 22:00 12/06/16 16:27 (Precedex Inj/NS 250 ml Inj) 250 ml @ 0 mls/hr TITRATE IV 12/02/16 09:01 12/04/16 07:27 (Geodon Inj) 10 mg Q8H PRN IM 12/02/16 17:15 12/05/16 19:53 (Haldol Inj) 5 mg Q2H PRN IV 12/02/16 17:15 12/04/16 21:52 (NovoLOG SUPPLEMENTAL SCALE) 1 DAILY@07,16 SQ 12/03/16 07:00 (Inderal) 10 mg Q12HR PO 12/03/16 16:00 Metoprolol Tartrate 5 mg 5 mg Q6HR IV PUSH 12/04/16 00:00 12/06/16 18:03 (Flagyl 500 Mg Inj) 100 ml @ 100 mls/hr Q8H IV 12/04/16 16:30 12/06/16 16:27 Furosemide 20 mg 20 mg DAILY IV PUSH 12/06/16 09:00 12/06/16 08:05 (Levaquin 250 Mg Premix Inj) 50 ml @ 50 mls/hr Q24H IV 12/07/16 12:00 Vital Signs / I&O Vital Signs Date Time Temp Pulse Resp B/P Pulse Ox O2 Delivery O2 Flow Rate FiO2 12/06/16 19:35 99 Partial Rebreather 12.00 12/06/16 18:00 99 12/06/16 16:00 97 12/06/16 16:00 98.3 97 24 137/69 99 12/06/16 14:55 94 Venturi Mask 6.00 50 12/06/16 14:00 112 12/06/16 12:00 97 12/06/16 12:00 98.3 97 29 131/75 100 12/06/16 10:00 105 12/06/16 08:00 108 12/06/16 08:00 98.5 108 27 147/79 100 12/06/16 07:00 100 Partial Non-Rebreather 12.00 12/06/16 06:00 106 12/06/16 04:00 99.1 106 25 144/70 100 12/06/16 04:00 106 12/06/16 02:00 112 12/06/16 00:00 112 12/06/16 00:00 99.3 122 27 139/72 97 12/05/16 22:00 102 I/O 12/05/16 12/05/16 12/05/16 12/06/16 12/06/16 12/06/16 07:00 15:00 23:00 07:00 15:00 23:00 Intake Total 305 ml 472 ml 382 ml 242 ml 467 ml Output Total 1100 ml 1300 ml 800 ml 500 ml 1000 ml Balance -795 ml -828 ml -418 ml -258 ml -533 ml Intake IV Total 305 ml 472 ml 382 ml 242 ml 467 ml Output Urine Total 1100 ml 1300 ml 800 ml 500 ml 1000 ml # Bowel Movements 2 0 0 0 0 Physical Exam GENERAL: Somnolent, in NAD SKIN: Warm and dry. HEAD: Normocephalic. EYES: No scleral icterus. No injection or drainage. NECK: Supple, trachea midline. No JVD or lymphadenopathy. CARDIOVASCULAR: Irregular rate and rhythm with systolic murmur, no gallops or rubs. RESPIRATORY: Breath sounds equal bilaterally. No accessory muscle use. GASTROINTESTINAL: Abdomen soft, non-tender, nondistended. MUSCULOSKELETAL: No cyanosis, mild edema. Laboratory Laboratory Tests Test 12/06/16 03:38 White Blood Count 14.8 TH/MM3 Red Blood Count 3.63 MIL/MM3 Hemoglobin 12.3 GM/DL Hematocrit 36.2 % Mean Corpuscular Volume 99.6 FL Mean Corpuscular Hemoglobin 34.0 PG Mean Corpuscular Hemoglobin 34.1 % Concent Red Cell Distribution Width 17.6 % Platelet Count 180 TH/MM3 Mean Platelet Volume 7.3 FL Neutrophils (%) (Auto) 66.2 % Lymphocytes (%) (Auto) 22.1 % Monocytes (%) (Auto) 9.5 % Eosinophils (%) (Auto) 1.0 % Basophils (%) (Auto) 1.2 % Neutrophils # (Auto) 9.8 TH/MM3 Lymphocytes # (Auto) 3.3 TH/MM3 Monocytes # (Auto) 1.4 TH/MM3 Eosinophils # (Auto) 0.2 TH/MM3 Basophils # (Auto) 0.2 TH/MM3 CBC Comment AUTO DIFF Differential Total Cells 100 Counted Neutrophils % (Manual) 71 % Lymphocytes % 19 % Monocytes % 7 % Neutrophils # (Manual) 11.0 TH/MM3 Myelocytes 2 % Promyelocytes 1 % Nucleated Red Blood Cells 1 /100 WBC Differential Comment FINAL DIFF MANUAL Platelet Estimate NORMAL Platelet Morphology Comment NORMAL Ovalocytes 1+ Activated Partial 43.2 SEC Thromboplast Time Sodium Level 151 MEQ/L Potassium Level 3.5 MEQ/L Chloride Level 113 MEQ/L Carbon Dioxide Level 29.2 MEQ/L Anion Gap 9 MEQ/L Blood Urea Nitrogen 39 MG/DL Creatinine 1.56 MG/DL Estimat Glomerular Filtration 43 ML/MIN Rate Random Glucose 125 MG/DL Calcium Level 9.4 MG/DL Total Bilirubin 1.2 MG/DL Aspartate Amino Transf 24 U/L (AST/SGOT) Alanine Aminotransferase 35 U/L (ALT/SGPT) Alkaline Phosphatase 106 U/L Total Protein 6.3 GM/DL Albumin 2.8 GM/DL Imaging Last Impressions Abdomen X-Ray 12/06/16 0000 Signed Impressions: Service Date/Time: November 12:27 - CONCLUSION: No evidence of obstruction. Nasogastric tube in the stomach Ulisses Tavarez MD Chest X-Ray 12/04/16 0000 Signed Impressions: Service Date/Time: Sunday, December 04, 2016 08:14 - CONCLUSION: Slight worsening airspace disease greater in the left upper lobe. Georges Troncoso MD Head Magnetic Resonance Angiography 11/28/162130 Signed Impressions: Service Date/Time: Monday, November 28, 2016 23:27 - CONCLUSION: 1. 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 No acute abnormality. Edmond Chavis Jr., MD Head CT 11/28/16 1643 Signed Impressions: Service Date/Time: Monday, November 28, 2016 17:40 - CONCLUSION: Evidence for a previous head trauma with surgery as described above. There are no acute changes evident. Kev Louise MD FACR Lung Scan-VQ Nuclear Medicine 11/28/16 0000 Signed Impressions: Service Date/Time: Monday, November 28, 2016 23:58 - CONCLUSION: Normal examination. Edmond Chavis Jr., MD Lower Extremity Ultrasound 5/10/17 0000 Signed Impressions: Service Date/Time: Monday, November 28, 2016 19:22 - CONCLUSION: Normal examination. Lee Mcbride MD Brain MRI 11/28/16 Signed Impressions: Service Date/Time: Monday, November 28, 2016 23:27 - CONCLUSION: 1. No acute intracranial abnormality. 2. Multiple sites of encephalomalacia as detailed above. 3. Chronic small vessel ischemic change. 4. Chronic paranasal sinus disease. Edmond Chavis Jr., MD Abdomen Ultrasound 11/28/16 Signed Impressions: Service Date/Time: Monday, November 28, 2016 19:04 - CONCLUSION: Chronic-appearing renal disease. No acute findings Lee Mcbride MD Assessment and Plan Problem List: (1) PEA (Pulseless electrical activity) (2) Acute renal failure (3) Atrial fibrillation (4) PVD (peripheral vascular disease) (5) Seizure Assessment and Plan Continue current program. A fib rate controlled. EEG suggestive of possible seizure, evaluated by neurology. Continue monitoring. I recommend to continue conservative management. Failed swallowing evaluation, not taking PO meds yet. No new cardiac issues. Misael Calderon MD December 06, 2016 20:33
[2016-12-06] MEDS: RESP: ALBUTEROL 2.5 MG/3 ML NEB (PRN) NEB (21:56)
[2016-12-07] VITALS (17 sets, daily range): BP systolic 89–143; BP diastolic 50–75; PULSE 80–102; RESP 16–28; TEMP 98.4–99; O2SAT 90–100
[2016-12-07] MEDS: metroNIDAZOLE 500 MG INJ 100 ML IV SCH ×3 (00:43→15:43)
[2016-12-07] MEDS: METOPROLOL TARTRATE 5 MG/5 ML VIAL IV PUSH SCH ×4 (00:43→15:39)
[2016-12-07 02:03] LABS: BLOOD GAS BASE EXCESS 5.2 mmol/L (-2-2); BLOOD GAS CARBOXYHEMOGLOBIN 1.3 % (0-4); BLOOD GAS HCO3 30 mmol/L (22-26); BLOOD GAS METHEMOGLOBIN 0.7 % (0-2); BLOOD GAS O2 HGB SATURATION 85 % (90-100); BLOOD GAS OXYGEN CONTENT 15.6 Vol % (12.0-20.0); BLOOD GAS PCO2 55 mmHg (38-42); BLOOD GAS PO2 59 mmHg (61-120); TEMP CORR TO 98.6
[2016-12-07 02:04] LABS: CRITICAL VALUE YES
[2016-12-07 02:05] LABS: DRAW SITE LT RADIAL; FIO2 100 %; LITER FLOW 15 L/M; NUMBER OF ARTERIAL PUNCTURES 1; OXYGEN DEVICE NRB; STAT YES; ULNAR PULSE PRESENT
[2016-12-07] MEDS ORDERED: ETOMIDATE 20 MG/10 ML VIAL ONE (02:33)
[2016-12-07 02:46] LABS: HEMATOCRIT 38.1 % (39.0-51.0); MEAN CELL VOLUME 100.9 FL (80.0-100.0); MEAN CORPUSCULAR HEMOGLOBIN 33.9 PG (27.0-34.0); MEAN CORPUSCULAR HGB CONC 33.6 % (32.0-36.0); PLATELET COUNT 233 TH/MM3 (150-450); RED BLOOD COUNT 3.77 MIL/MM3 (4.50-5.90); RED CELL DISTRIBUTION WIDTH 17.8 % (11.6-17.2); REVIEW FLAG FINAL; WHITE BLOOD COUNT 21.1 TH/MM3 (4.0-11.0)
[2016-12-07] MEDS ORDERED: PROPOFOL 1000 MG/100 ML INJ 100 ML ONE (02:51)
[2016-12-07 02:57] LABS: APTT (PATIENT) 45.5 SEC (24.3-30.1)
--- NOTE | 2016-12-07 03:03 | PD.PROCEDR ---
Procedure Note Procedure Endotracheal Intubation A time-out was completed verifying correct patient, procedure, site, positioning , and special equipment if applicable. The patient was placed in a flat position. Sedation was obtained using Etomidate 20mg. The patient was easily ventilated using an ambu bag. The [employer]/ MAC 4 BLADE was used and inserted into the oropharynx at which time there was a Grade 1 view of the vocal cords. A 8-yakut endotracheal tube was inserted and visualized going through the vocal cords. The stylette was removed. Colorimetric change was visualized on the CO2 meter. Breath sounds were heard in both lung nix equally. The endotracheal tube was placed at 23 cm, measured at the teeth. A chest x-ray was ordered to assess for pneumothorax and verify endotrachealtube placement. Estimated Blood Loss: 0 The patient tolerated the procedure well and there were no complications. Alcides Coley MD December 07, 2016 03:03
[2016-12-07 03:04] LABS: ALT (GPT) 30 U/L (12-78); ANION GAP 7 MEQ/L (5-15); AST (GOT) 21 U/L (15-37); BICARBONATE 31.9 MEQ/L (21.0-32.0); BLOOD UREA NITROGEN 38 MG/DL (7-18); CHLORIDE 115 MEQ/L (98-107); GLOMERULAR FILTRATION RATE 41 ML/MIN (>89); MAGNESIUM 2.3 MG/DL (1.5-2.5); POTASSIUM 3.6 MEQ/L (3.5-5.1); SODIUM (NA) 154 MEQ/L (136-145)
[2016-12-07 03:06] LABS: ALKALINE PHOSPHATASE 110 U/L (45-117); TOTAL BILIRUBIN ADULT 1.2 MG/DL (0.2-1.0)
[2016-12-07] MEDS: CHLORHEXIDINE GLUCONATE 2 % 1 PACK (2 CLOTHS) TOP SCH (04:00)
--- NOTE | 2016-12-07 04:00 | RADRPT ---
EXAM DATE/TIME: 12/07/2016 03:08 [facility] COMPARISON: CHEST SINGLE AP, December 04, 2016, 8:14. INDICATIONS : Post intubation. MEDICAL HISTORY : Hypertension. Congestive heart failure. SURGICAL HISTORY : None. ENCOUNTER: Subsequent ACUITY: 1 week PAIN SCORE: Non-responsive. LOCATION: Bilateral chest FINDINGS: Endotracheal tube tip in satisfactory position. NG enters stomach. Right central line in superior shruthi a cava. Bilateral airspace disease, left greater than right similar to prior examination. No pneumoth orax. CONCLUSION: 1. Intubation with endotracheal tube in satisfactory position. NG enters stomach. Dionisio Cassidy MD on December 07, 2016 at 3:57 Board Certified Radiologist. This report was verified electronically.
[2016-12-07 04:25] LABS: BLOOD GAS BASE EXCESS 4.2 mmol/L (-2-2); BLOOD GAS CARBOXYHEMOGLOBIN 1.3 % (0-4); BLOOD GAS HCO3 29 mmol/L (22-26); BLOOD GAS METHEMOGLOBIN 0.6 % (0-2); BLOOD GAS O2 HGB SATURATION 98 % (90-100); BLOOD GAS PCO2 48 mmHg (38-42); BLOOD GAS PO2 290 mmHg (61-120); BLOOD GAS TOTAL HGB 12.6 G/DL (12.0-16.0); CRITICAL VALUE NO; DRAW SITE LT RADIAL; FIO2 100 %; NUMBER OF ARTERIAL PUNCTURES 1; OXYGEN DEVICE VENTILATOR; STAT NO; TEMP CORR TO 98.6; ULNAR PULSE PRESENT
[2016-12-07] MEDS: PROPOFOL 1000 MG/100 ML INJ 100 ML IV SCH ×2 (05:10→13:45)
[2016-12-07] MEDS: FOSPHENYTOIN SODIUM 100 MG PE/2 ML VIAL IV SCH ×4 (05:11→21:27)
[2016-12-07] MEDS ORDERED: ETOMIDATE 20 MG/10 ML VIAL IV PUSH ONE (05:18)
[2016-12-07] MEDS: INSULIN ASPART SUPPLEMENTAL SCALE SQ SCH ×2 (07:00→16:00)
[2016-12-07] MEDS: PROPRANOLOL HCL 10 MG TAB PO SCH ×2 (07:57→21:27)
[2016-12-07] MEDS: CHLORHEXIDINE 0.12% (ORAL KIT) 15 ML CUP MT SCH ×2 (08:00→21:29)
[2016-12-07] MEDS: FREE WATER G-TUBE SCH ×4 (08:00→21:28)
--- NOTE | 2016-12-07 08:56 | HHI.PR ---
Review/Management Diagnosis possible sz, epileptiform activity on eeg Plan recheck phenytoin level Diagnosis/Plan: Subjective Subjective Comments No acute events reported No sz-on cerebyx Active Medications Current Medications Medications (Trade) Dose Ordered Sig/Elvin Route Start Time Stop Time Status Last Admin (Peridex 0.12% Liq) 15 ml BID@08,20 MT 11/28/16 20:00 12/06/16 21:05 (NS Flush) 2 ml UNSCH PRN .XX 11/28/16 19:15 12/06/16 03:30 (NS Flush) 2 ml BID .XX 11/28/16 21:00 12/06/16 21:05 (Protonix Inj) 40 mg DAILY IV 11/29/16 09:00 12/06/16 08:06 (Zofran Inj) 4 mg Q6H PRN IV 11/28/16 19:15 (Colace Liq) 100 mg Q12H G-TUBE 11/28/16 21:00 12/06/16 21:07 Miscellaneous Information 1 Q361D XX 11/28/16 19:15 (Chlorhexidine 2% Cloth) Taper DAILY@04 TOP 11/29/16 04:00 11/25/17 03:59 12/07/16 04:00 (Chlorhexidine 2% Cloth) 3 pack UNSCH PRN TOP 11/28/16 19:15 (D50w (Vial) Inj) 25 ml UNSCH PRN IV PUSH 11/28/16 19:15 Glucagon 1 mg 1 mg UNSCH PRN OTHER 11/28/16 19:15 (Levophed-Dextrose Drip) 250 ml @ 0 mls/hr TITRATE IV 11/28/16 21:30 (Brethine Inj) 1 mg UNSCH PRN SQ 11/28/16 21:30 (Heparin Inj) 5,000 units UNSCH PRN IV 11/29/16 06:30 Heparin Sodium (Porcine) 2500 units 2,500 units UNSCH PRN IV 11/29/16 06:30 (Heparin-D5W Inj) 250 ml @ 0 mls/hr TITRATE IV 11/29/16 00:30 12/06/16 13:16 (Aspirin Chew) 162 mg DAILY CHEW 11/29/16 02:45 12/03/16 13:45 ([place] 5-325 Mg) 1 tab Q4H PRN OG-TUBE 11/29/16 09:00 (Pravachol) 40 mg DAILY PO 11/29/16 09:00 12/03/16 09:55 (Ativan Inj) 1 mg Q4H PRN IV PUSH 11/29/16 11:15 Fosphenytoin Sodium 100 mgpe 100 mgpe Q6H IV 11/30/16 22:00 12/07/16 05:11 (Precedex Inj/NS 250 ml Inj) 250 ml @ 0 mls/hr TITRATE IV 12/02/16 09:01 12/04/16 07:27 (Geodon Inj) 10 mg Q8H PRN IM 12/02/16 17:15 12/05/16 19:53 (Haldol Inj) 5 mg Q2H PRN IV 12/02/16 17:15 12/04/16 21:52 (NovoLOG SUPPLEMENTAL SCALE) 1 DAILY@07,16 SQ 12/03/16 07:00 (Inderal) 10 mg Q12HR PO 12/03/16 16:00 12/06/16 21:08 Metoprolol Tartrate 5 mg 5 mg Q6HR IV PUSH 12/04/16 00:00 12/07/16 00:43 (Flagyl 500 Mg Inj) 100 ml @ 100 mls/hr Q8H IV 12/04/16 16:30 12/07/16 00:43 Furosemide 20 mg 20 mg DAILY IV PUSH 12/06/16 09:00 12/06/16 08:05 Levofloxacin/ Dextrose 50 ml @ 50 mls/hr Q24H IV 12/07/16 12:00 (Diprivan 1000 Mg/100ml Inj) 100 ml @ 0 mls/hr TITRATE IV 12/07/16 03:00 12/07/16 05:10 (Free Water) VOLUME: 200 ML Q4HR G-TUBE 12/07/16 08:00 12/08/16 18:00 Allergies Allergies Coded Allergies No Known Allergies (Verified11/28/16) Exam I&O / VS 12/06/16 12/06/16 12/07/16 15:00 23:00 07:00 Intake Total 467 ml 609 ml 681 ml Output Total 1000 ml 650 ml 300 ml Balance -533 ml -41 ml 381 ml Intake IV Total 467 ml 362 ml 271 ml Tube Feeding 187 ml 350 ml Tube Irrigant 60 ml 60 ml Output Urine Total 1000 ml 650 ml 300 ml # Bowel Movements 0 0 0 Vital Signs Date Time Temp Pulse Resp B/P Pulse Ox O2 Delivery O2 Flow Rate FiO2 12/07/16 07:30 97 40 12/07/16 07:00 96 Mechanical Ventilator 40 12/07/16 06:00 86 12/07/16 04:00 84 12/07/16 04:00 98.8 99 16 112/53 100 12/07/16 02:53 100 100 12/07/16 02:00 85 12/07/16 00:00 80 12/07/16 00:00 98.8 102 28 143/75 90 12/06/16 22:00 97 12/06/16 20:00 106 12/06/16 20:00 99.3 106 25 129/76 92 12/06/16 19:35 99 Partial Rebreather 12.00 12/06/16 19:00 100 Partial Non-Rebreather 12.00 12/06/16 18:00 99 12/06/16 16:00 97 12/06/16 16:00 98.3 97 24 137/69 99 12/06/16 14:55 94 Venturi Mask 6.00 50 12/06/16 14:00 112 12/06/16 12:00 97 12/06/16 12:00 98.3 97 29 131/75 100 12/06/16 10:00 105 Exam Comments not responsive perrl Motor--no focal deficit, no posturing Objective Micro and Labs Laboratory Tests Test 12/07/16 12/07/16 12/07/16 01:50 02:30 04:14 Blood Gas Puncture Site LT RADIAL LT RADIAL Blood Gas Patient Temperature 98.6 98.6 Blood Gas HCO3 30 29 Blood Gas Base Excess 5.2 4.2 Blood Gas Oxygen Saturation 85 98 Arterial Blood pH 7.36 7.40 Arterial Blood Partial 55 48 Pressure CO2 Arterial Blood Partial 59 290 Pressure O2 Arterial Blood Oxygen Content 15.6 18.0 Arterial Blood 1.3 1.3 Carboxyhemoglobin Arterial Blood Methemoglobin 0.7 0.6 Blood Gas Hemoglobin 13.0 12.6 Oxygen Delivery Device NRB VENTILATOR Blood Gas Liter Flow 15 Blood Gas Inspired Oxygen 100 100 White Blood Count 21.1 Red Blood Count 3.77 Hemoglobin 12.8 Hematocrit 38.1 Mean Corpuscular Volume 100.9 Mean Corpuscular Hemoglobin 33.9 Mean Corpuscular Hemoglobin 33.6 Concent Red Cell Distribution Width 17.8 Platelet Count 233 Mean Platelet Volume 7.6 Activated Partial 45.5 Thromboplast Time Sodium Level 154 Potassium Level 3.6 Chloride Level 115 Carbon Dioxide Level 31.9 Anion Gap 7 Blood Urea Nitrogen 38 Creatinine 1.62 Estimat Glomerular Filtration 41 Rate Random Glucose 157 Calcium Level 9.3 Phosphorus Level 2.3 Magnesium Level 2.3 Total Bilirubin 1.2 Aspartate Amino Transf 21 (AST/SGOT) Alanine Aminotransferase 30 (ALT/SGPT) Alkaline Phosphatase 110 Total Protein 6.3 Albumin 2.7 Blood Gas Ventilator Setting SEE COMMENT Jayce Wood PhD December 07, 2016 08:56
[2016-12-07] MEDS: DOCUSATE SODIUM 100 MG/10 ML UDC G-TUBE SCH ×2 (09:00→21:28)
[2016-12-07] MEDS: ASPIRIN 81 MG CHEW TAB CHEW SCH (09:12)
[2016-12-07] MEDS: FUROSEMIDE 20 MG/2 ML VIAL IV PUSH SCH (09:12)
[2016-12-07] MEDS: PANTOPRAZOLE SODIUM 40 MG VIAL IV SCH (09:12)
[2016-12-07] MEDS: PRAVASTATIN SOD 40 MG TAB PO SCH (09:12)
[2016-12-07] MEDS: SODIUM CHLORIDE 0.9% FLUSH 10 ML FLUSH SCH ×2 (09:13→21:28)
[2016-12-07 11:10] LABS: BACTERIA, URINE RARE /hpf; BLOOD, URINE NEG (NEG); GLUCOSE,URINE NEG (NEG); HYALINE CAST, URINE 8 /lpf (RARE); KETONE, URINE NEG (NEG); MUCUS URINE FEW /lpf (OCC); NITRITE,URINE NEG (NEG); SQUAMOUS EPITHELIAL CELL URINE <1 /hpf (0-5); URINE COLOR YELLOW (YELLW/STRAW)
[2016-12-07 11:12] LABS: COMMENT (UR) CATH-CULTURE IND; CULTURE IF INDICATED CATH CULTURE IND
[2016-12-07] MEDS: LEVOFLOXACIN/DEXTROSE 250 MG/50 ML IV SCH (12:42)
[2016-12-07] MEDS: NOREPINEPHRINE-DEXTROSE DRIP 250 ML IV SCH (13:45)
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
[2016-12-07] MEDS ORDERED: SODIUM CHLORID 0.9% 500 ML INJ 500 ML IV ONE (14:30)
--- NOTE | 2016-12-07 17:47 | PD.CARD.PN ---
Subjective Subjective Remarks Intubated, sedated, now on pressors Objective Medications Current Medications Medications (Trade) Dose Ordered Sig/Elvin Route Start Time Stop Time Status Last Admin (Peridex 0.12% Liq) 15 ml BID@08,20 MT 11/28/16 20:00 12/07/16 08:00 (NS Flush) 2 ml UNSCH PRN .XX 11/28/16 19:15 12/06/16 03:30 (NS Flush) 2 ml BID .XX 11/28/16 21:00 12/07/16 09:13 (Protonix Inj) 40 mg DAILY IV 11/29/16 09:00 12/07/16 09:12 (Zofran Inj) 4 mg Q6H PRN IV 11/28/16 19:15 (Colace Liq) 100 mg Q12H G-TUBE 11/28/16 21:00 12/06/16 21:07 Miscellaneous Information 1 Q361D XX 11/28/16 19:15 (Chlorhexidine 2% Cloth) Taper DAILY@04 TOP 11/29/16 04:00 11/25/17 03:59 12/07/16 04:00 (Chlorhexidine 2% Cloth) 3 pack UNSCH PRN TOP 11/28/16 19:15 (D50w (Vial) Inj) 25 ml UNSCH PRN IV PUSH 11/28/16 19:15 Glucagon 1 mg 1 mg UNSCH PRN OTHER 11/28/16 19:15 (Levophed-Dextrose Drip) 250 ml @ 0 mls/hr TITRATE IV 11/28/16 21:30 12/07/16 13:45 (Brethine Inj) 1 mg UNSCH PRN SQ 11/28/16 21:30 (Heparin Inj) 5,000 units UNSCH PRN IV 11/29/16 06:30 Heparin Sodium (Porcine) 2500 units 2,500 units UNSCH PRN IV 11/29/16 06:30 (Heparin-D5W Inj) 250 ml @ 0 mls/hr TITRATE IV 11/29/16 00:30 12/06/16 13:16 (Aspirin Chew) 162 mg DAILY CHEW 11/29/16 02:45 12/07/16 09:12 ([place] 5-325 Mg) 1 tab Q4H PRN OG-TUBE 11/29/16 09:00 (Pravachol) 40 mg DAILY PO 11/29/16 09:00 12/07/16 09:12 (Ativan Inj) 1 mg Q4H PRN IV PUSH 11/29/16 11:15 Fosphenytoin Sodium 100 mgpe 100 mgpe Q6H IV 11/30/16 22:00 12/07/16 15:42 (Precedex Inj/NS 250 ml Inj) 250 ml @ 0 mls/hr TITRATE IV 12/02/16 09:01 12/04/16 07:27 (Geodon Inj) 10 mg Q8H PRN IM 12/02/16 17:15 12/05/16 19:53 (Haldol Inj) 5 mg Q2H PRN IV 12/02/16 17:15 12/04/16 21:52 (NovoLOG SUPPLEMENTAL SCALE) 1 DAILY@07,16 SQ 12/03/16 07:00 (Inderal) 10 mg Q12HR PO 12/03/16 16:00 12/06/16 21:08 Metoprolol Tartrate 5 mg 5 mg Q6HR IV PUSH 12/04/16 00:00 12/07/16 00:43 (Flagyl 500 Mg Inj) 100 ml @ 100 mls/hr Q8H IV 12/04/16 16:30 12/07/16 15:43 Furosemide 20 mg 20 mg DAILY IV PUSH 12/06/16 09:00 12/07/16 09:12 Levofloxacin/ Dextrose 50 ml @ 50 mls/hr Q24H IV 12/07/16 12:00 12/07/16 12:42 (Diprivan 1000 Mg/100ml Inj) 100 ml @ 0 mls/hr TITRATE IV 12/07/16 03:00 12/07/16 13:45 (Free Water) VOLUME: 200 ML Q4HR G-TUBE 12/07/16 08:00 12/08/16 18:00 12/07/16 15:43 Vital Signs / I&O Vital Signs Date Time Temp Pulse Resp B/P Pulse Ox O2 Delivery O2 Flow Rate FiO2 12/07/16 16:27 98 40 12/07/16 14:00 89 12/07/16 12:00 98.8 90 20 89/54 98 12/07/16 12:00 89 12/07/16 11:45 98 40 12/07/16 10:00 94 12/07/16 08:00 98.5 102 16 99/54 96 12/07/16 08:00 102 12/07/16 07:30 97 40 12/07/16 07:00 96 Mechanical Ventilator 40 12/07/16 06:00 86 12/07/16 04:00 84 12/07/16 04:00 98.8 99 16 112/53 100 12/07/16 02:53 100 100 12/07/16 02:00 85 12/07/16 00:00 80 12/07/16 00:00 98.8 102 28 143/75 90 12/06/16 22:00 97 12/06/16 20:00 106 12/06/16 20:00 99.3 106 25 129/76 92 12/06/16 19:35 99 Partial Rebreather 12.00 12/06/16 19:00 100 Partial Non-Rebreather 12.00 12/06/16 18:00 99 I/O 12/06/16 12/06/16 12/06/16 12/07/16 12/07/16 12/07/16 07:00 15:00 23:00 07:00 15:00 23:00 Intake Total 242 ml 467 ml 609 ml 681 ml 1050 ml Output Total 500 ml 1000 ml 650 ml 300 ml 350 ml Balance -258 ml -533 ml -41 ml 381 ml 700 ml Intake IV Total 242 ml 467 ml 362 ml 271 ml 286 ml Tube Feeding 187 ml 350 ml 364 ml Tube Irrigant 60 ml 60 ml Other 400 ml Output Urine Total 500 ml 1000 ml 650 ml 300 ml 350 ml # Bowel Movements 0 0 0 0 1 Physical Exam GENERAL: Intubated, sedated SKIN: Warm and dry. HEAD: Normocephalic. EYES: No scleral icterus. No injection or drainage. NECK: Supple, trachea midline. No JVD or lymphadenopathy. CARDIOVASCULAR: Irregular rate and rhythm with systolic murmur, no gallops or rubs. RESPIRATORY: Breath sounds equal bilaterally. No accessory muscle use. GASTROINTESTINAL: Abdomen soft, non-tender, nondistended. MUSCULOSKELETAL: No cyanosis, mild edema. Laboratory Laboratory Tests Test 12/07/16 12/07/16 12/07/16 12/07/16 01:50 02:30 04:14 10:45 Blood Gas Puncture Site LT RADIAL LT RADIAL Blood Gas Patient Temperature 98.6 98.6 Blood Gas HCO3 30 mmol/L 29 mmol/L Blood Gas Base Excess 5.2 mmol/L 4.2 mmol/L Blood Gas Oxygen Saturation 85 % 98 % Arterial Blood pH 7.36 7.40 Arterial Blood Partial 55 mmHg 48 mmHg Pressure CO2 Arterial Blood Partial 59 mmHg 290 mmHg Pressure O2 Arterial Blood Oxygen Content 15.6 Vol % 18.0 Vol % Arterial Blood 1.3 % 1.3 % Carboxyhemoglobin Arterial Blood Methemoglobin 0.7 % 0.6 % Blood Gas Hemoglobin 13.0 G/DL 12.6 G/DL Oxygen Delivery Device NRB VENTILATOR Blood Gas Liter Flow 15 L/M Blood Gas Inspired Oxygen 100 % 100 % White Blood Count 21.1 TH/MM3 Red Blood Count 3.77 MIL/MM3 Hemoglobin 12.8 GM/DL Hematocrit 38.1 % Mean Corpuscular Volume 100.9 FL Mean Corpuscular Hemoglobin 33.9 PG Mean Corpuscular Hemoglobin 33.6 % Concent Red Cell Distribution Width 17.8 % Platelet Count 233 TH/MM3 Mean Platelet Volume 7.6 FL Activated Partial 45.5 SEC Thromboplast Time Sodium Level 154 MEQ/L Potassium Level 3.6 MEQ/L Chloride Level 115 MEQ/L Carbon Dioxide Level 31.9 MEQ/L Anion Gap 7 MEQ/L Blood Urea Nitrogen 38 MG/DL Creatinine 1.62 MG/DL Estimat Glomerular Filtration 41 ML/MIN Rate Random Glucose 157 MG/DL Calcium Level 9.3 MG/DL Phosphorus Level 2.3 MG/DL Magnesium Level 2.3 MG/DL Total Bilirubin 1.2 MG/DL Aspartate Amino Transf 21 U/L (AST/SGOT) Alanine Aminotransferase 30 U/L (ALT/SGPT) Alkaline Phosphatase 110 U/L Total Protein 6.3 GM/DL Albumin 2.7 GM/DL Blood Gas Ventilator Setting SEE COMMENT Urine Color YELLOW Urine Turbidity CLEAR Urine pH 5.0 Urine Specific [place] 1.009 Urine Protein NEG mg/dL Urine Glucose (UA) NEG mg/dL Urine Ketones NEG mg/dL Urine Occult Blood NEG Urine Nitrite NEG Urine Bilirubin NEG Urine Urobilinogen LESS THAN 2.0 MG/DL Urine Leukocyte Esterase NEG Urine WBC 1 /hpf Urine Squamous Epithelial <1 /hpf Cells Urine Bacteria RARE /hpf Urine Hyaline Casts 8 /lpf Urine Mucus FEW /lpf Microscopic Urinalysis Comment CATH-CULTURE IND Test 12/07/16 12:50 Phenytoin (Dilantin) Level 18.1 MCG/ML Imaging Last Impressions Chest X-Ray 12/07/16 0000 Signed Impressions: Service Date/Time: Wednesday, December 07, 2016 03:08 - CONCLUSION: 1. Intubation with endotracheal tube in satisfactory position. NG enters stomach. Dionisio Cassidy MD Abdomen X-Ray 12/06/16 0000 Signed Impressions: Service Date/Time: November 12:27 - CONCLUSION: No evidence of obstruction. Nasogastric tube in the stomach Ulisses Tavarez MD Head Magnetic Resonance Angiography 11/28/162130 Signed Impressions: Service Date/Time: Monday, November 28, 2016 23:27 - CONCLUSION: 1. 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 No acute abnormality. Edmond Chavis Jr., MD Head CT 11/28/16 1643 Signed Impressions: Service Date/Time: Monday, November 28, 2016 17:40 - CONCLUSION: Evidence for a previous head trauma with surgery as described above. There are no acute changes evident. Kev Louise MD FACR Lung Scan-V Nuclear Medicine 11/28/16 0000 Signed Impressions: Service Date/Time: Monday, November 28, 2016 23:58 - CONCLUSION: Normal examination. Edmond Chavis Jr., MD Lower Extremity Ultrasound 11/28/16 0000 Signed Impressions: Service Date/Time: Monday, November 28, 2016 19:22 - CONCLUSION: Normal examination. Lee Mcbride MD Brain MRI 11/28/16 0000 Signed Impressions: Service Date/Time: Monday, November 28, 2016 23:27 - CONCLUSION: 1. No acute intracranial abnormality. 2. Multiple sites of encephalomalacia as detailed above. 3. Chronic small vessel ischemic change. 4. Chronic paranasal sinus disease. Edmond Chavis Jr., MD Abdomen Ultrasound 11/28/16 0000 Signed Impressions: Service Date/Time: Monday, November 28, 2016 19:04 - CONCLUSION: Chronic-appearing renal disease. No acute findings Lee Mcbride MD Assessment and Plan Problem List: (1) PEA (Pulseless electrical activity) (2) Acute renal failure (3) Atrial fibrillation (4) PVD (peripheral vascular disease) (5) Seizure (6) Endotracheally intubated (7) Respiratory failure Assessment and Plan Intubated, on the vent. Now on pressors. A fib rate controlled. EEG suggestive of possible seizure, evaluated by neurology. Continue ICU care. I recommend to continue conservative management. Overall prognosis guarded. Misael Calderon MD December 07, 2016 17:47
[2016-12-08] VITALS (20 sets, daily range): BP systolic 96–129; BP diastolic 52–63; PULSE 73–98; RESP 13–28; TEMP 98.2–100.2; O2SAT 92–98
[2016-12-08] MEDS: METOPROLOL TARTRATE 5 MG/5 ML VIAL IV PUSH SCH ×5 (00:30→23:33)
[2016-12-08] MEDS: metroNIDAZOLE 500 MG INJ 100 ML IV SCH ×4 (00:52→23:33)
[2016-12-08] MEDS: CHLORHEXIDINE GLUCONATE 2 % 1 PACK (2 CLOTHS) TOP SCH (02:30)
[2016-12-08] MEDS: FREE WATER G-TUBE SCH ×5 (03:30→16:00)
[2016-12-08] MEDS: FOSPHENYTOIN SODIUM 100 MG PE/2 ML VIAL IV SCH ×4 (03:39→20:43)
[2016-12-08] MEDS: PROPOFOL 1000 MG/100 ML INJ 100 ML IV SCH ×2 (03:40→20:44)
[2016-12-08 04:09] LABS: HEMATOCRIT 32.1 % (39.0-51.0); MEAN CELL VOLUME 100.2 FL (80.0-100.0); MEAN CORPUSCULAR HEMOGLOBIN 33.3 PG (27.0-34.0); MEAN CORPUSCULAR HGB CONC 33.2 % (32.0-36.0); PLATELET COUNT 187 TH/MM3 (150-450); RED CELL DISTRIBUTION WIDTH 17.9 % (11.6-17.2); REVIEW FLAG FINAL; WHITE BLOOD COUNT 13.2 TH/MM3 (4.0-11.0)
[2016-12-08 04:25] LABS: APTT (PATIENT) 37.9 SEC (24.3-30.1)
[2016-12-08] MEDS: INSULIN ASPART SUPPLEMENTAL SCALE SQ SCH ×2 (06:56→16:00)
[2016-12-08] MEDS: CHLORHEXIDINE 0.12% (ORAL KIT) 15 ML CUP MT SCH ×2 (07:58→20:41)
[2016-12-08] MEDS: DOCUSATE SODIUM 100 MG/10 ML UDC G-TUBE SCH ×2 (07:58→20:42)
[2016-12-08] MEDS: PROPRANOLOL HCL 10 MG TAB PO SCH ×2 (07:59→20:42)
[2016-12-08] MEDS: PANTOPRAZOLE SODIUM 40 MG VIAL IV SCH (08:43)
[2016-12-08] MEDS: FUROSEMIDE 20 MG/2 ML VIAL IV PUSH SCH (08:43)
[2016-12-08] MEDS: SODIUM CHLORIDE 0.9% FLUSH 10 ML FLUSH SCH ×2 (08:44→20:42)
[2016-12-08] MEDS: PRAVASTATIN SOD 40 MG TAB PO SCH (08:44)
[2016-12-08] MEDS: ASPIRIN 81 MG CHEW TAB CHEW SCH (08:44)
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
[2016-12-08 10:55] LABS: APTT (PATIENT) 45.1 SEC (24.3-30.1)
[2016-12-08] MEDS: LEVOFLOXACIN/DEXTROSE 250 MG/50 ML IV SCH (11:07)
[2016-12-08 11:22] LABS: ALKALINE PHOSPHATASE 100 U/L (45-117); ALT (GPT) 21 U/L (12-78); ANION GAP 7 MEQ/L (5-15); AST (GOT) 20 U/L (15-37); BICARBONATE 32.1 MEQ/L (21.0-32.0); BLOOD UREA NITROGEN 42 MG/DL (7-18); CHLORIDE 117 MEQ/L (98-107); GLOMERULAR FILTRATION RATE 38 ML/MIN (>89); TOTAL BILIRUBIN ADULT 0.9 MG/DL (0.2-1.0)
[2016-12-08 11:30] LABS: SODIUM (NA) 156 MEQ/L (136-145)
[2016-12-08] MEDS ORDERED: POTASSIUM CHLOR 40 MEQ PREMIX 100 ML IV SCH (12:00)
--- NOTE | 2016-12-08 14:42 | MG ---
cc: THANIA BALDWIN Lab No: [id number] Date: 12/08/2016 Age: Sex: M Race: Sedation was turned off, history of encephalomalacia, some sharps and phase reversal from earlier EEG STEMI alert. Had some seizure activity, atrial fibrillation, Diprivan, aspirin, Cerebyx. The recording does show a phase reversing sharp with contoured alpha wave over C4. She has a right central and also had for the right frontal head region at the beginning of the recording. There is some focal slowing over the right hemisphere compared to the left with some sharps seen there and phase reversing sharp that again C4 at epoch 14 which is epileptiform. No prolonged seizures are noted. No Klebs are noted. Photic stimulation was performed without significant posterior driving and diffuse background of alpha and beta rhythms are noted. IMPRESSION Consistent with a mild diffuse encephalopathy with a focal abnormality at times somewhat epileptiform but not continuous seizure activity over the right central temporal frontal head region. A lesion on the right side as suspected. MD KEVON Carter/sd /2:09 PM /2:36 PM
[2016-12-08 17:39] LABS: APTT (PATIENT) 48.6 SEC (24.3-30.1)
[2016-12-08] MEDS: HEPARIN-D5W INJ 250 ML IV SCH (19:26)
[2016-12-09] VITALS (20 sets, daily range): BP systolic 111–124; BP diastolic 56–69; PULSE 80–100; RESP 12–26; TEMP 98–99.3; O2SAT 94–100
[2016-12-09] MEDS: PROPOFOL 1000 MG/100 ML INJ 100 ML IV SCH ×3 (01:06→18:01)
[2016-12-09] MEDS: CHLORHEXIDINE GLUCONATE 2 % 1 PACK (2 CLOTHS) TOP SCH (02:23)
[2016-12-09] MEDS: NOREPINEPHRINE-DEXTROSE DRIP 250 ML IV SCH (03:07)
[2016-12-09] MEDS: FOSPHENYTOIN SODIUM 100 MG PE/2 ML VIAL IV SCH ×4 (03:07→22:00)
[2016-12-09 05:09] LABS: AUTOMATED NEUTROPHIL # 6.7 TH/MM3 (1.8-7.7); BASOPHIL # 0.1 TH/MM3 (0-0.2); BASOPHIL % 0.9 % (0.0-2.0); EOSINOPHIL # 0.2 TH/MM3 (0-0.4); EOSINOPHIL % 1.5 % (0.0-4.0); HEMATOCRIT 31.8 % (39.0-51.0); LYMPH % 33.1 % (9.0-44.0); LYMPHOCYTE # 3.8 TH/MM3 (1.0-4.8); MEAN CELL VOLUME 100.8 FL (80.0-100.0); MEAN CORPUSCULAR HEMOGLOBIN 32.7 PG (27.0-34.0); MEAN CORPUSCULAR HGB CONC 32.5 % (32.0-36.0); MONO % 6.5 % (0.0-8.0); PLATELET COUNT 181 TH/MM3 (150-450); RED BLOOD COUNT 3.15 MIL/MM3 (4.50-5.90); RED CELL DISTRIBUTION WIDTH 17.8 % (11.6-17.2); WHITE BLOOD COUNT 11.5 TH/MM3 (4.0-11.0)
[2016-12-09 05:12] LABS: HEMO FLAGS AUTO DIFF
[2016-12-09 05:28] LABS: APTT (PATIENT) 52.7 SEC (24.3-30.1)
[2016-12-09 05:30] LABS: ALT (GPT) 19 U/L (12-78); ANION GAP 7 MEQ/L (5-15); AST (GOT) 15 U/L (15-37); BICARBONATE 31.4 MEQ/L (21.0-32.0); BLOOD UREA NITROGEN 37 MG/DL (7-18); CHLORIDE 117 MEQ/L (98-107); GLOMERULAR FILTRATION RATE 44 ML/MIN (>89); POTASSIUM 3.4 MEQ/L (3.5-5.1); SODIUM (NA) 155 MEQ/L (136-145)
[2016-12-09 05:33] LABS: ALKALINE PHOSPHATASE 99 U/L (45-117); TOTAL BILIRUBIN ADULT 0.8 MG/DL (0.2-1.0)
[2016-12-09] MEDS: METOPROLOL TARTRATE 5 MG/5 ML VIAL IV PUSH SCH ×3 (06:00→18:00)
[2016-12-09 06:07] LABS: BANDS 1 % (0-6); EOSINOPHILS 2 % (0-4); METAMYELOCYTES 1 % (0-1); MYELOCYTES 5 % (0-0); NEUTROPHIL # MANUAL DIFF 7.2 TH/MM3 (1.8-7.7); OVALOCYTES 1+ (NORMAL); POLYS (SEG NEUTROPHILS) 56 % (16-70); WBC DIFF SAMPLE 100
[2016-12-09 06:08] LABS: PLATELET ESTIMATE SMEAR NORMAL (NORMAL); PLATELET MORPHOLOGY NORMAL (NORMAL); SCAN/DIFF FINAL DIFF MANUAL
[2016-12-09] MEDS: INSULIN ASPART SUPPLEMENTAL SCALE SQ SCH ×2 (07:00→16:00)
[2016-12-09] MEDS: DOCUSATE SODIUM 100 MG/10 ML UDC G-TUBE SCH ×2 (07:37→21:00)
[2016-12-09] MEDS: FREE WATER G-TUBE SCH ×4 (08:00→20:00)
[2016-12-09] MEDS: CHLORHEXIDINE 0.12% (ORAL KIT) 15 ML CUP MT SCH ×2 (08:00→20:00)
[2016-12-09] MEDS: metroNIDAZOLE 500 MG INJ 100 ML IV SCH ×2 (08:44→16:04)
[2016-12-09] MEDS: PANTOPRAZOLE SODIUM 40 MG VIAL IV SCH (08:44)
[2016-12-09] MEDS: SODIUM CHLORIDE 0.9% FLUSH 10 ML FLUSH SCH ×2 (08:45→21:00)
[2016-12-09] MEDS: ASPIRIN 81 MG CHEW TAB CHEW SCH (08:45)
[2016-12-09] MEDS ORDERED: POTASSIUM CHLOR 40 MEQ PREMIX 100 ML IV ONE (08:45)
[2016-12-09] MEDS: PRAVASTATIN SOD 40 MG TAB PO SCH (08:45)
[2016-12-09] MEDS: PROPRANOLOL HCL 10 MG TAB PO SCH ×3 (09:00→21:00)
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
[2016-12-09] MEDS: FUROSEMIDE 20 MG/2 ML VIAL IV PUSH SCH (10:34)
[2016-12-09] MEDS: LEVOFLOXACIN/DEXTROSE 250 MG/50 ML IV SCH (12:00)
[2016-12-10] VITALS (18 sets, daily range): BP systolic 99–114; BP diastolic 51–66; PULSE 71–108; RESP 20–28; TEMP 97.7–98.9; O2SAT 93–100
[2016-12-10] MEDS: METOPROLOL TARTRATE 5 MG/5 ML VIAL IV PUSH SCH ×5 (01:08→23:30)
[2016-12-10] MEDS: metroNIDAZOLE 500 MG INJ 100 ML IV SCH ×4 (01:08→23:35)
[2016-12-10] MEDS: PROPOFOL 1000 MG/100 ML INJ 100 ML IV SCH (01:09)
[2016-12-10] MEDS: CHLORHEXIDINE GLUCONATE 2 % 1 PACK (2 CLOTHS) TOP SCH (04:00)
[2016-12-10] MEDS: FREE WATER G-TUBE SCH ×7 (04:00→23:30)
[2016-12-10] MEDS: FOSPHENYTOIN SODIUM 100 MG PE/2 ML VIAL IV SCH ×4 (05:20→21:51)
[2016-12-10 05:43] LABS: APTT (PATIENT) 49.4 SEC (24.3-30.1)
[2016-12-10] MEDS: INSULIN ASPART SUPPLEMENTAL SCALE SQ SCH ×2 (06:36→16:17)
[2016-12-10] MEDS: CHLORHEXIDINE 0.12% (ORAL KIT) 15 ML CUP MT SCH ×2 (08:00→20:00)
[2016-12-10] MEDS: SODIUM CHLORIDE 0.9% FLUSH 10 ML FLUSH SCH ×2 (08:00→21:00)
[2016-12-10 08:08] LABS: AUTOMATED NEUTROPHIL # 5.6 TH/MM3 (1.8-7.7); BASOPHIL # 0.1 TH/MM3 (0-0.2); BASOPHIL % 0.7 % (0.0-2.0); EOSINOPHIL # 0.2 TH/MM3 (0-0.4); EOSINOPHIL % 1.7 % (0.0-4.0); HEMATOCRIT 29.9 % (39.0-51.0); LYMPH % 37.8 % (9.0-44.0); MEAN CELL VOLUME 99.7 FL (80.0-100.0); MEAN CORPUSCULAR HEMOGLOBIN 33.8 PG (27.0-34.0); MEAN CORPUSCULAR HGB CONC 33.9 % (32.0-36.0); MONO % 6.7 % (0.0-8.0); NEUT % 53.1 % (16.0-70.0); PLATELET COUNT 194 TH/MM3 (150-450); RED CELL DISTRIBUTION WIDTH 18.1 % (11.6-17.2); WHITE BLOOD COUNT 10.5 TH/MM3 (4.0-11.0)
[2016-12-10 08:09] LABS: HEMO FLAGS AUTO DIFF
[2016-12-10 08:39] LABS: ALKALINE PHOSPHATASE 159 U/L (45-117); ALT (GPT) 24 U/L (12-78); ANION GAP 6 MEQ/L (5-15); AST (GOT) 28 U/L (15-37); BICARBONATE 32.3 MEQ/L (21.0-32.0); BLOOD UREA NITROGEN 35 MG/DL (7-18); CHLORIDE 115 MEQ/L (98-107); GLOMERULAR FILTRATION RATE 44 ML/MIN (>89); POTASSIUM 3.8 MEQ/L (3.5-5.1); SODIUM (NA) 153 MEQ/L (136-145); TOTAL BILIRUBIN ADULT 0.8 MG/DL (0.2-1.0)
[2016-12-10 08:48] LABS: BANDS 9 % (0-6); BASOPHILS 1 % (0-2); EOSINOPHILS 1 % (0-4); MYELOCYTES 3 % (0-0); POLYS (SEG NEUTROPHILS) 45 % (16-70); WBC DIFF SAMPLE 100
[2016-12-10 08:49] LABS: OVALOCYTES 1+ (NORMAL); PLATELET ESTIMATE SMEAR NORMAL (NORMAL); PLATELET MORPHOLOGY NORMAL (NORMAL); SCAN/DIFF FINAL DIFF MANUAL
[2016-12-10] MEDS: DOCUSATE SODIUM 100 MG/10 ML UDC G-TUBE SCH ×2 (09:00→21:00)
[2016-12-10] MEDS: ASPIRIN 81 MG CHEW TAB CHEW SCH (09:45)
[2016-12-10] MEDS: PANTOPRAZOLE SODIUM 40 MG VIAL IV SCH (09:47)
[2016-12-10] MEDS: FUROSEMIDE 20 MG/2 ML VIAL IV PUSH SCH (09:48)
[2016-12-10] MEDS: PROPRANOLOL HCL 10 MG TAB PO SCH ×2 (09:49→21:00)
[2016-12-10] MEDS: PRAVASTATIN SOD 40 MG TAB PO SCH (09:50)
--- NOTE | 2016-12-10 09:53 | RADRPT ---
EXAM DATE/TIME: 12/10/2016 08:53 [facility] COMPARISON: CHEST SINGLE AP, December 07, 2016, 3:08. INDICATIONS : Respiratory failure. MEDICAL HISTORY : Hypertension. Congestive heart failure. SURGICAL HISTORY : None. ENCOUNTER: Subsequent ACUITY: 1 week PAIN SCORE: Non-responsive. LOCATION: Bilateral chest FINDINGS: Endotracheal tube is present with tip 4 cm above the lionel. Nasogastric tube descends to the stomach . Right central line stable in good position. The there is persistent diffuse hazy parenchymal opacit y on the left and predominantly perihilar parenchymal opacity in the right. Cardiac contour is grossl y stable. CONCLUSION: No significant change Lee Mcbride MD on December 10, 2016 at 9:50 Board Certified Radiologist. This report was verified electronically.
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
[2016-12-10] MEDS: LEVOFLOXACIN/DEXTROSE 250 MG/50 ML IV SCH (12:28)
[2016-12-10] MEDS: DEXMEDETOMIDINE INJ 1,000 MCG in SODIUM CHLOR 0.9% 250 ML INJ 240 ML IV SCH (14:32)
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
--- NOTE | 2016-12-10 16:06 | PD.CARD.PN ---
Subjective Subjective Remarks Intubated, poorly responsive Objective Medications Current Medications Medications (Trade) Dose Ordered Sig/Elvin Route Start Time Stop Time Status Last Admin (Peridex 0.12% Liq) 15 ml BID@08,20 MT 11/28/16 20:00 12/10/16 08:00 (NS Flush) 2 ml UNSCH PRN .XX 11/28/16 19:15 12/06/16 03:30 (NS Flush) 2 ml BID .XX 11/28/16 21:00 12/09/16 21:00 (Protonix Inj) 40 mg DAILY IV 11/29/16 09:00 12/10/16 09:47 (Zofran Inj) 4 mg Q6H PRN IV 11/28/16 19:15 (Colace Liq) 100 mg Q12H G-TUBE 11/28/16 21:00 12/06/16 21:07 Miscellaneous Information 1 Q361D XX 11/28/16 19:15 (Chlorhexidine 2% Cloth) Taper DAILY@04 TOP 11/29/16 04:00 11/25/17 03:59 12/10/16 04:00 (Chlorhexidine 2% Cloth) 3 pack UNSCH PRN TOP 11/28/16 19:15 (D50w (Vial) Inj) 25 ml UNSCH PRN IV PUSH 11/28/16 19:15 Glucagon 1 mg 1 mg UNSCH PRN OTHER 11/28/16 19:15 (Levophed-Dextrose Drip) 250 ml @ 0 mls/hr TITRATE IV 11/28/16 21:30 12/09/16 03:07 (Brethine Inj) 1 mg UNSCH PRN SQ 11/28/16 21:30 (Heparin Inj) 5,000 units UNSCH PRN IV 11/29/16 06:30 Heparin Sodium (Porcine) 2500 units 2,500 units UNSCH PRN IV 11/29/16 06:30 (Heparin-D5W Inj) 250 ml @ 0 mls/hr TITRATE IV 11/29/16 00:30 12/08/16 19:26 (Aspirin Chew) 162 mg DAILY CHEW 11/29/16 02:45 12/10/16 09:45 ([place] 5-325 Mg) 1 tab Q4H PRN OG-TUBE 11/29/16 09:00 (Pravachol) 40 mg DAILY PO 11/29/16 09:00 12/10/16 09:50 (Ativan Inj) 1 mg Q4H PRN IV PUSH 11/29/16 11:15 Fosphenytoin Sodium 100 mgpe 100 mgpe Q6H IV 11/30/16 22:00 12/10/16 10:00 (Precedex Inj/NS 250 ml Inj) 250 ml @ 0 mls/hr TITRATE IV 12/02/16 09:01 12/10/16 14:32 (Geodon Inj) 10 mg Q8H PRN IM 12/02/16 17:15 12/05/16 19:53 (Haldol Inj) 5 mg Q2H PRN IV 12/02/16 17:15 12/04/16 21:52 (NovoLOG SUPPLEMENTAL SCALE) 1 DAILY@07,16 SQ 12/03/16 07:00 12/10/16 06:36 (Inderal) 10 mg Q12HR PO 12/03/16 16:00 12/10/16 09:49 Metoprolol Tartrate 5 mg 5 mg Q6HR IV PUSH 12/04/16 00:00 12/10/16 01:08 (Flagyl 500 Mg Inj) 100 ml @ 100 mls/hr Q8H IV 12/04/16 16:30 12/10/16 09:41 Furosemide 20 mg 20 mg DAILY IV PUSH 12/06/16 09:00 12/10/16 09:48 Levofloxacin/ Dextrose 50 ml @ 50 mls/hr Q24H IV 12/07/16 12:00 12/10/16 12:28 (Diprivan 1000 Mg/100ml Inj) 100 ml @ 0 mls/hr TITRATE IV 12/07/16 03:00 12/10/16 01:09 (Free Water) VOLUME OF WATER: ( 200 )... Q4HR G-TUBE 12/09/16 08:00 12/10/16 12:00 Vital Signs / I&O Vital Signs Date Time Temp Pulse Resp B/P Pulse Ox O2 Delivery O2 Flow Rate FiO2 12/10/16 14:00 98 12/10/16 12:28 97 30 12/10/16 12:00 30 12/10/16 12:00 98.9 97 24 109/51 98 12/10/16 12:00 97 12/10/16 10:00 108 12/10/16 09:55 93 30 12/10/16 08:17 97 30 12/10/16 08:00 98.8 96 22 114/66 100 12/10/16 08:00 30 12/10/16 08:00 96 12/10/16 07:00 99 Mechanical Ventilator 30 12/10/16 06:00 86 12/10/16 04:00 87 12/10/16 04:00 30 12/10/16 04:00 97.7 87 22 109/55 99 12/10/16 02:00 77 12/10/16 01:07 100 30 12/10/16 00:00 77 12/10/16 00:00 98.0 95 20 114/56 100 12/10/16 00:00 30 12/09/16 22:06 97 30 12/09/16 22:00 87 12/09/16 20:00 98.0 85 16 111/69 99 12/09/16 20:00 87 12/09/16 20:00 30 12/09/16 19:30 95 30 12/09/16 19:00 99 Mechanical Ventilator 30 12/09/16 18:00 80 I/O 12/09/16 12/09/16 12/09/16 12/10/16 12/10/16 12/10/16 06:59 14:59 22:59 06:59 14:59 22:59 Intake Total 664 ml 1360 ml 960 ml 747 ml 1218 ml Output Total 537 ml 900 ml 550 ml 350 ml 700 ml Balance 127 ml 460 ml 410 ml 397 ml 518 ml Intake IV Total 425 ml 168 ml 136 ml 338 ml Tube Feeding 464 ml 535 ml 592 ml 411 ml 480 ml Other 200 ml 400 ml 200 ml 200 ml 400 ml Output Urine Total 537 ml 900 ml 550 ml 350 ml 700 ml # Bowel Movements 2 2 1 0 1 Physical Exam GENERAL: Intubated, somnolent SKIN: Warm and dry. HEAD: Normocephalic. EYES: No scleral icterus. No injection or drainage. NECK: Supple, trachea midline. No JVD or lymphadenopathy. CARDIOVASCULAR: Irregular rate and rhythm with systolic murmur, no gallops or rubs. RESPIRATORY: Breath sounds equal bilaterally. No accessory muscle use. GASTROINTESTINAL: Abdomen soft, non-tender, nondistended. MUSCULOSKELETAL: No cyanosis, mild edema. Laboratory Laboratory Tests Test 12/09/16 12/10/16 12/10/16 21:03 05:15 07:50 Potassium Level 3.6 MEQ/L 3.8 MEQ/L Activated Partial 49.4 SEC Thromboplast Time White Blood Count 10.5 TH/MM3 Red Blood Count 3.00 MIL/MM3 Hemoglobin 10.2 GM/DL Hematocrit 29.9 % Mean Corpuscular Volume 99.7 FL Mean Corpuscular Hemoglobin 33.8 PG Mean Corpuscular Hemoglobin 33.9 % Concent Red Cell Distribution Width 18.1 % Platelet Count 194 TH/MM3 Mean Platelet Volume 7.7 FL Neutrophils (%) (Auto) 53.1 % Lymphocytes (%) (Auto) 37.8 % Monocytes (%) (Auto) 6.7 % Eosinophils (%) (Auto) 1.7 % Basophils (%) (Auto) 0.7 % Neutrophils # (Auto) 5.6 TH/MM3 Lymphocytes # (Auto) 4.0 TH/MM3 Monocytes # (Auto) 0.7 TH/MM3 Eosinophils # (Auto) 0.2 TH/MM3 Basophils # (Auto) 0.1 TH/MM3 CBC Comment AUTO DIFF Differential Total Cells 100 Counted Neutrophils % (Manual) 45 % Band Neutrophils % 9 % Lymphocytes % 40 % Monocytes % 1 % Eosinophils % 1 % Basophils % 1 % Neutrophils # (Manual) 6.0 TH/MM3 Myelocytes 3 % Differential Comment FINAL DIFF MANUAL Atypical Lymphocytes % Platelet Estimate NORMAL Platelet Morphology Comment NORMAL Ovalocytes 1+ Sodium Level 153 MEQ/L Chloride Level 115 MEQ/L Carbon Dioxide Level 32.3 MEQ/L Anion Gap 6 MEQ/L Blood Urea Nitrogen 35 MG/DL Creatinine 1.53 MG/DL Estimat Glomerular Filtration 44 ML/MIN Rate Random Glucose 160 MG/DL Calcium Level 8.1 MG/DL Total Bilirubin 0.8 MG/DL Aspartate Amino Transf 28 U/L (AST/SGOT) Alanine Aminotransferase 24 U/L (ALT/SGPT) Alkaline Phosphatase 159 U/L Total Protein 5.4 GM/DL Albumin 2.0 GM/DL Imaging Last Impressions Chest X-Ray 12/10/16 0000 Signed Impressions: Service Date/Time: Saturday, December 10, 2016 08:53 - CONCLUSION: No significant change Lee Mcbride MD Abdomen X-Ray 12/06/16 0000 Signed Impressions: Service Date/Time: November 12:27 - CONCLUSION: No evidence of obstruction. Nasogastric tube in the stomach Ulisses Tavarez MD Head Magnetic Resonance Angiography 11/28/162130 Signed Impressions: Service Date/Time: Monday, November 28, 2016 23:27 - CONCLUSION: 1. 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 No acute abnormality. Edmond Chavis Jr., MD Head CT 11/28/161642 Signed Impressions: Service Date/Time: Monday, November 28, 2016 17:40 - CONCLUSION: Evidence for a previous head trauma with surgery as described above. There are no acute changes evident. Kev Louise MD FACR Lung Scan-V Nuclear Medicine 11/28/16 Signed Impressions: Service Date/Time: Monday, November 28, 2016 23:58 - CONCLUSION: Normal examination. Edmond Chavis Jr., MD Lower Extremity Ultrasound 11/28/16 Signed Impressions: Service Date/Time: Monday, November 28, 2016 19:22 - CONCLUSION: Normal examination. Lee Mcbride MD Brain MRI 11/28/16 Signed Impressions: Service Date/Time: Monday, November 28, 2016 23:27 - CONCLUSION: 1. No acute intracranial abnormality. 2. Multiple sites of encephalomalacia as detailed above. 3. Chronic small vessel ischemic change. 4. Chronic paranasal sinus disease. Edmond Chavis Jr., MD Abdomen Ultrasound 11/28/16 Signed Impressions: Service Date/Time: Monday, November 28, 2016 19:04 - CONCLUSION: Chronic-appearing renal disease. No acute findings Lee Mcbride MD Assessment and Plan Problem List: (1) PEA (Pulseless electrical activity) (2) Acute renal failure (3) Atrial fibrillation (4) PVD (peripheral vascular disease) (5) Seizure (6) Endotracheally intubated (7) Respiratory failure Assessment and Plan Remains intubated, on the vent. A fib rate controlled. EEG suggestive of possible seizure, evaluated by neurology. Continue ICU care. I recommend to continue conservative management. Overall prognosis guarded. Slow progress. Misael Calderon MD December 10, 2016 16:06
[2016-12-10] MEDS: ACETAMINOPHEN/HYDROcodone 325 MG/5 MG TAB OG-TUBE PRN (16:08)
[2016-12-10] MEDS: HEPARIN-D5W INJ 250 ML IV SCH (16:18)
--- NOTE | 2016-12-10 17:24 | HHI.PR ---
Review/Management Diagnosis possible sz, epileptiform activity on eeg Plan continue phenytoin Diagnosis/Plan: Subjective Subjective Comments No acute events reported No seizures. Active Medications Current Medications Medications (Trade) Dose Ordered Sig/Elvin Route Start Time Stop Time Status Last Admin (Peridex 0.12% Liq) 15 ml BID@08,20 MT 11/28/16 20:00 12/10/16 08:00 (NS Flush) 2 ml UNSCH PRN .XX 11/28/16 19:15 12/06/16 03:30 (NS Flush) 2 ml BID .XX 11/28/16 21:00 12/09/16 21:00 (Protonix Inj) 40 mg DAILY IV 11/29/16 09:00 12/10/16 09:47 (Zofran Inj) 4 mg Q6H PRN IV 11/28/16 19:15 (Colace Liq) 100 mg Q12H G-TUBE 11/28/16 21:00 12/06/16 21:07 Miscellaneous Information 1 Q361D XX 11/28/16 19:15 (Chlorhexidine 2% Cloth) Taper DAILY@04 TOP 11/29/16 04:00 11/25/17 03:59 12/10/16 04:00 (Chlorhexidine 2% Cloth) 3 pack UNSCH PRN TOP 11/28/16 19:15 (D50w (Vial) Inj) 25 ml UNSCH PRN IV PUSH 11/28/16 19:15 Glucagon 1 mg 1 mg UNSCH PRN OTHER 11/28/16 19:15 (Levophed-Dextrose Drip) 250 ml @ 0 mls/hr TITRATE IV 11/28/16 21:30 12/09/16 03:07 (Brethine Inj) 1 mg UNSCH PRN SQ 11/28/16 21:30 (Heparin Inj) 5,000 units UNSCH PRN IV 11/29/16 06:30 Heparin Sodium (Porcine) 2500 units 2,500 units UNSCH PRN IV 11/29/16 06:30 (Heparin-D5W Inj) 250 ml @ 0 mls/hr TITRATE IV 11/29/16 00:30 12/10/16 16:18 (Aspirin Chew) 162 mg DAILY CHEW 11/29/16 02:45 12/10/16 09:45 ([place] 5-325 Mg) 1 tab Q4H PRN OG-TUBE 11/29/16 09:00 12/10/16 16:08 (Pravachol) 40 mg DAILY PO 11/29/16 09:00 12/10/16 09:50 (Ativan Inj) 1 mg Q4H PRN IV PUSH 11/29/16 11:15 Fosphenytoin Sodium 100 mgpe 100 mgpe Q6H IV 11/30/16 22:00 12/10/16 16:08 (Precedex Inj/NS 250 ml Inj) 250 ml @ 0 mls/hr TITRATE IV 12/02/16 09:01 12/10/16 14:32 (Geodon Inj) 10 mg Q8H PRN IM 12/02/16 17:15 12/05/16 19:53 (Haldol Inj) 5 mg Q2H PRN IV 12/02/16 17:15 12/04/16 21:52 (NovoLOG SUPPLEMENTAL SCALE) 1 DAILY@07,16 SQ 12/03/16 07:00 12/10/16 16:17 (Inderal) 10 mg Q12HR PO 12/03/16 16:00 12/10/16 09:49 Metoprolol Tartrate 5 mg 5 mg Q6HR IV PUSH 12/04/16 00:00 12/10/16 01:08 (Flagyl 500 Mg Inj) 100 ml @ 100 mls/hr Q8H IV 12/04/16 16:30 12/10/16 16:08 Furosemide 20 mg 20 mg DAILY IV PUSH 12/06/16 09:00 12/10/16 09:48 Levofloxacin/ Dextrose 50 ml @ 50 mls/hr Q24H IV 12/07/16 12:00 12/10/16 12:28 (Diprivan 1000 Mg/100ml Inj) 100 ml @ 0 mls/hr TITRATE IV 12/07/16 03:00 12/10/16 01:09 (Free Water) VOLUME OF WATER: ( 200 )... Q4HR G-TUBE 12/09/16 08:00 12/10/16 16:00 Allergies Allergies Coded Allergies No Known Allergies (Verified11/28/16) Exam I&O / VS 12/09/16 12/09/16 12/10/16 15:00 23:00 07:00 Intake Total 1360 ml 960 ml 747 ml Output Total 900 ml 550 ml 350 ml Balance 460 ml 410 ml 397 ml Intake IV Total 425 ml 168 ml 136 ml Tube Feeding 535 ml 592 ml 411 ml Other 400 ml 200 ml 200 ml Output Urine Total 900 ml 550 ml 350 ml # Bowel Movements 2 1 0 Vital Signs Date Time Temp Pulse Resp B/P Pulse Ox O2 Delivery O2 Flow Rate FiO2 12/10/16 16:33 99 30 12/10/16 16:00 93 12/10/16 16:00 30 12/10/16 16:00 98.3 93 28 104/63 100 12/10/16 14:00 98 12/10/16 12:28 97 30 12/10/16 12:00 30 12/10/16 12:00 98.9 97 24 109/51 98 12/10/16 12:00 97 12/10/16 10:00 108 12/10/16 09:55 93 30 12/10/16 08:17 97 30 12/10/16 08:00 98.8 96 22 114/66 100 12/10/16 08:00 30 12/10/16 08:00 96 12/10/16 07:00 99 Mechanical Ventilator 30 12/10/16 06:00 86 12/10/16 04:00 87 12/10/16 04:00 30 12/10/16 04:00 97.7 87 22 109/55 99 12/10/16 02:00 77 12/10/16 01:07 100 30 12/10/16 00:00 77 12/10/16 00:00 98.0 95 20 114/56 100 12/10/16 00:00 30 12/09/16 22:06 97 30 12/09/16 22:00 87 12/09/16 20:00 98.0 85 16 111/69 99 12/09/16 20:00 87 12/09/16 20:00 30 12/09/16 19:30 95 30 12/09/16 19:00 99 Mechanical Ventilator 30 12/09/16 18:00 80 Exam Comments not following commands. perrl Motor--no focal deficit, no posturing Objective Micro and Labs Laboratory Tests Test 12/09/16 12/10/16 12/10/16 21:03 05:15 07:50 Potassium Level 3.6 3.8 Activated Partial 49.4 Thromboplast Time White Blood Count 10.5 Red Blood Count 3.00 Hemoglobin 10.2 Hematocrit 29.9 Mean Corpuscular Volume 99.7 Mean Corpuscular Hemoglobin 33.8 Mean Corpuscular Hemoglobin 33.9 Concent Red Cell Distribution Width 18.1 Platelet Count 194 Mean Platelet Volume 7.7 Neutrophils (%) (Auto) 53.1 Lymphocytes (%) (Auto) 37.8 Monocytes (%) (Auto) 6.7 Eosinophils (%) (Auto) 1.7 Basophils (%) (Auto) 0.7 Neutrophils # (Auto) 5.6 Lymphocytes # (Auto) 4.0 Monocytes # (Auto) 0.7 Eosinophils # (Auto) 0.2 Basophils # (Auto) 0.1 CBC Comment AUTO DIFF Differential Total Cells 100 Counted Neutrophils % (Manual) 45 Band Neutrophils % 9 Lymphocytes % 40 Monocytes % 1 Eosinophils % 1 Basophils % 1 Neutrophils # (Manual) 6.0 Myelocytes 3 Differential Comment FINAL DIFF MANUAL Atypical Lymphocytes Platelet Estimate NORMAL Platelet Morphology Comment NORMAL Ovalocytes 1+ Sodium Level 153 Chloride Level 115 Carbon Dioxide Level 32.3 Anion Gap 6 Blood Urea Nitrogen 35 Creatinine 1.53 Estimat Glomerular Filtration 44 Rate Random Glucose 160 Calcium Level 8.1 Total Bilirubin 0.8 Aspartate Amino Transf 28 (AST/SGOT) Alanine Aminotransferase 24 (ALT/SGPT) Alkaline Phosphatase 159 Total Protein 5.4 Albumin 2.0 Date/Time Procedure Status Source Growth 12/07/16 12:56 Aerobic Blood Culture - Preliminary Resulted Blood Peripheral NO GROWTH IN 3 DAYS 12/07/16 12:56 Anaerobic Blood Culture - Preliminary Resulted Blood Peripheral NO GROWTH IN 3 DAYS 12/07/16 10:45 Urine Culture - Final Complete Urine Catheterized Urine NO GROWTH IN 48 HOURS. Jayce Wood PhD MD December 10, 2016 17:24
[2016-12-11] VITALS (18 sets, daily range): BP systolic 91–127; BP diastolic 50–66; PULSE 62–99; RESP 10–32; TEMP 97.8–98.1; O2SAT 97–100
[2016-12-11] MEDS: DEXMEDETOMIDINE INJ 1,000 MCG in SODIUM CHLOR 0.9% 250 ML INJ 240 ML IV SCH ×2 (03:08→11:10)
[2016-12-11] MEDS: FREE WATER G-TUBE SCH ×5 (03:08→21:22)
[2016-12-11 03:56] LABS: HEMATOCRIT 28.9 % (39.0-51.0); MEAN CELL VOLUME 100.7 FL (80.0-100.0); MEAN CORPUSCULAR HEMOGLOBIN 33.2 PG (27.0-34.0); PLATELET COUNT 202 TH/MM3 (150-450); RED BLOOD COUNT 2.87 MIL/MM3 (4.50-5.90); REVIEW FLAG FINAL; WHITE BLOOD COUNT 12.1 TH/MM3 (4.0-11.0)
[2016-12-11] MEDS: CHLORHEXIDINE GLUCONATE 2 % 1 PACK (2 CLOTHS) TOP SCH (04:00)
[2016-12-11 04:06] LABS: APTT (PATIENT) 54.4 SEC (24.3-30.1)
[2016-12-11] MEDS: FOSPHENYTOIN SODIUM 100 MG PE/2 ML VIAL IV SCH ×4 (04:23→21:22)
[2016-12-11] MEDS: METOPROLOL TARTRATE 5 MG/5 ML VIAL IV PUSH SCH ×3 (05:48→18:00)
[2016-12-11] MEDS: INSULIN ASPART SUPPLEMENTAL SCALE SQ SCH ×2 (06:21→16:16)
[2016-12-11] MEDS: CHLORHEXIDINE 0.12% (ORAL KIT) 15 ML CUP MT SCH ×2 (08:00→21:51)
[2016-12-11] MEDS: SODIUM CHLORIDE 0.9% FLUSH 10 ML FLUSH SCH ×2 (08:29→21:51)
[2016-12-11] MEDS: DOCUSATE SODIUM 100 MG/10 ML UDC G-TUBE SCH ×2 (08:30→21:00)
[2016-12-11] MEDS: PANTOPRAZOLE SODIUM 40 MG VIAL IV SCH (08:39)
[2016-12-11] MEDS: ASPIRIN 81 MG CHEW TAB CHEW SCH (08:39)
[2016-12-11] MEDS: metroNIDAZOLE 500 MG INJ 100 ML IV SCH ×2 (08:40→15:56)
[2016-12-11] MEDS: FUROSEMIDE 20 MG/2 ML VIAL IV PUSH SCH (08:41)
[2016-12-11] MEDS: PRAVASTATIN SOD 40 MG TAB PO SCH (08:42)
[2016-12-11] MEDS: PROPRANOLOL HCL 10 MG TAB PO SCH ×3 (09:00→21:00)
[2016-12-11] MEDS: LEVOFLOXACIN/DEXTROSE 250 MG/50 ML IV SCH (11:23)
--- NOTE | 2016-12-11 13:48 | PD.CARD.PN ---
Subjective Subjective Remarks Intubated, awake, in NAD Objective Medications Current Medications Medications (Trade) Dose Ordered Sig/Elvin Route Start Time Stop Time Status Last Admin (Peridex 0.12% Liq) 15 ml BID@08,20 MT 11/28/16 20:00 12/11/16 08:00 (NS Flush) 2 ml UNSCH PRN .XX 11/28/16 19:15 12/06/16 03:30 (NS Flush) 2 ml BID .XX 11/28/16 21:00 12/10/16 21:00 (Protonix Inj) 40 mg DAILY IV 11/29/16 09:00 12/11/16 08:39 (Zofran Inj) 4 mg Q6H PRN IV 11/28/16 19:15 (Colace Liq) 100 mg Q12H G-TUBE 11/28/16 21:00 12/06/16 21:07 Miscellaneous Information 1 Q361D XX 11/28/16 19:15 (Chlorhexidine 2% Cloth) Taper DAILY@04 TOP 11/29/16 04:00 11/25/17 03:59 12/11/16 04:00 (Chlorhexidine 2% Cloth) 3 pack UNSCH PRN TOP 11/28/16 19:15 (D50w (Vial) Inj) 25 ml UNSCH PRN IV PUSH 11/28/16 19:15 Glucagon 1 mg 1 mg UNSCH PRN OTHER 11/28/16 19:15 (Levophed-Dextrose Drip) 250 ml @ 0 mls/hr TITRATE IV 11/28/16 21:30 12/09/16 03:07 (Brethine Inj) 1 mg UNSCH PRN SQ 11/28/16 21:30 (Heparin Inj) 5,000 units UNSCH PRN IV 11/29/16 06:30 Heparin Sodium (Porcine) 2500 units 2,500 units UNSCH PRN IV 11/29/16 06:30 (Heparin-D5W Inj) 250 ml @ 0 mls/hr TITRATE IV 11/29/16 00:30 12/10/16 16:18 (Aspirin Chew) 162 mg DAILY CHEW 11/29/16 02:45 12/11/16 08:39 ([place] 5-325 Mg) 1 tab Q4H PRN OG-TUBE 11/29/16 09:00 12/10/16 16:08 (Pravachol) 40 mg DAILY PO 11/29/16 09:00 12/11/16 08:42 (Ativan Inj) 1 mg Q4H PRN IV PUSH 11/29/16 11:15 Fosphenytoin Sodium 100 mgpe 100 mgpe Q6H IV 11/30/16 22:00 12/11/16 09:59 (Precedex Inj/NS 250 ml Inj) 250 ml @ 0 mls/hr TITRATE IV 12/02/16 09:01 12/11/16 11:10 (Geodon Inj) 10 mg Q8H PRN IM 12/02/16 17:15 12/05/16 19:53 (Haldol Inj) 5 mg Q2H PRN IV 12/02/16 17:15 12/04/16 21:52 (NovoLOG SUPPLEMENTAL SCALE) 1 DAILY@07,16 SQ 12/03/16 07:00 12/10/16 16:17 (Inderal) 10 mg Q12HR PO 12/03/16 16:00 12/11/16 11:48 Metoprolol Tartrate 5 mg 5 mg Q6HR IV PUSH 12/04/16 00:00 12/10/16 01:08 (Flagyl 500 Mg Inj) 100 ml @ 100 mls/hr Q8H IV 12/04/16 16:30 12/11/16 08:40 Furosemide 20 mg 20 mg DAILY IV PUSH 12/06/16 09:00 12/11/16 08:41 Levofloxacin/ Dextrose 50 ml @ 50 mls/hr Q24H IV 12/07/16 12:00 12/11/16 11:23 (Diprivan 1000 Mg/100ml Inj) 100 ml @ 0 mls/hr TITRATE IV 12/07/16 03:00 12/10/16 01:09 (Free Water) VOLUME OF WATER: ( 200 )... Q4HR G-TUBE 12/09/16 08:00 12/11/16 11:23 Vital Signs / I&O Vital Signs Date Time Temp Pulse Resp B/P Pulse Ox O2 Delivery O2 Flow Rate FiO2 12/11/16 12:00 30 12/11/16 12:00 83 12/11/16 12:00 97.9 83 22 100/62 98 12/11/16 11:15 97 30 12/11/16 10:00 65 12/11/16 08:00 97.9 69 14 104/56 98 12/11/16 08:00 30 12/11/16 08:00 69 12/11/16 07:55 100 30 12/11/16 07:55 30 12/11/16 07:00 100 Mechanical Ventilator 30 12/11/16 06:00 65 12/11/16 04:05 100 30 12/11/16 04:00 98.0 72 10 93/55 100 12/11/16 04:00 30 12/11/16 04:00 62 12/11/16 02:00 76 12/11/16 01:00 98 30 12/11/16 00:00 30 12/11/16 00:00 97.8 76 13 91/50 100 12/11/16 00:00 74 12/10/16 22:00 78 12/10/16 21:25 100 30 12/10/16 20:00 30 12/10/16 20:00 75 12/10/16 20:00 98.2 80 23 99/58 100 12/10/16 19:00 99 Mechanical Ventilator 30 12/10/16 18:00 71 12/10/16 17:38 24 12/10/16 16:33 99 30 12/10/16 16:00 93 12/10/16 16:00 30 12/10/16 16:00 98.3 93 28 104/63 100 12/10/16 14:00 98 I/O 12/10/16 12/10/16 12/10/16 12/11/16 12/11/16 12/11/16 06:59 14:59 22:59 06:59 14:59 22:59 Intake Total 747 ml 1218 ml 1542 ml 656 ml Output Total 350 ml 700 ml 450 ml 375 ml Balance 397 ml 518 ml 1092 ml 281 ml Intake IV Total 136 ml 338 ml 660 ml 218 ml Tube Feeding 411 ml 480 ml 682 ml 238 ml Other 200 ml 400 ml 200 ml 200 ml Output Urine Total 350 ml 700 ml 450 ml 375 ml # Bowel Movements 0 1 1 0 Physical Exam GENERAL: Intubated, somnolent SKIN: Warm and dry. HEAD: Normocephalic. EYES: No scleral icterus. No injection or drainage. NECK: Supple, trachea midline. No JVD or lymphadenopathy. CARDIOVASCULAR: Irregular rate and rhythm with systolic murmur, no gallops or rubs. RESPIRATORY: Breath sounds equal bilaterally. No accessory muscle use. GASTROINTESTINAL: Abdomen soft, non-tender, nondistended. MUSCULOSKELETAL: No cyanosis, mild edema. Laboratory Laboratory Tests Test 12/11/16 03:45 White Blood Count 12.1 TH/MM3 Red Blood Count 2.87 MIL/MM3 Hemoglobin 9.5 GM/DL Hematocrit 28.9 % Mean Corpuscular Volume 100.7 FL Mean Corpuscular Hemoglobin 33.2 PG Mean Corpuscular Hemoglobin 33.0 % Concent Red Cell Distribution Width 18.0 % Platelet Count 202 TH/MM3 Mean Platelet Volume 8.1 FL Activated Partial 54.4 SEC Thromboplast Time Imaging Last Impressions Chest X-Ray 12/10/16 0000 Signed Impressions: Service Date/Time: Saturday, December 10, 2016 08:53 - CONCLUSION: No significant change Lee Mcbride MD Abdomen X-Ray 12/06/16 0000 Signed Impressions: Service Date/Time: November 12:27 - CONCLUSION: No evidence of obstruction. Nasogastric tube in the stomach Ulisses Tavarez MD Head Magnetic Resonance Angiography 11/28/162130 Signed Impressions: Service Date/Time: Monday, November 28, 2016 23:27 - CONCLUSION: 1. 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 No acute abnormality. Edmond Chavis Jr., MD Head CT 11/28/16 1643 Signed Impressions: Service Date/Time: Monday, November 28, 2016 17:40 - CONCLUSION: Evidence for a previous head trauma with surgery as described above. There are no acute changes evident. Kev Louise MD FACR Lung Scan-VQ Nuclear Medicine 11/28/16 0000 Signed Impressions: Service Date/Time: Monday, November 28, 2016 23:58 - CONCLUSION: Normal examination. Edmond Chavis Jr., MD Lower Extremity Ultrasound 11/28/16 0000 Signed Impressions: Service Date/Time: Monday, November 28, 2016 19:22 - CONCLUSION: Normal examination. Lee Mcbride MD Brain MRI 11/28/16 0000 Signed Impressions: Service Date/Time: Monday, November 28, 2016 23:27 - CONCLUSION: 1. No acute intracranial abnormality. 2. Multiple sites of encephalomalacia as detailed above. 3. Chronic small vessel ischemic change. 4. Chronic paranasal sinus disease. Edmond Chavis Jr., MD Abdomen Ultrasound 11/28/16 0000 Signed Impressions: Service Date/Time: Monday, November 28, 2016 19:04 - CONCLUSION: Chronic-appearing renal disease. No acute findings Lee Mcbride MD Assessment and Plan Problem List: (1) PEA (Pulseless electrical activity) (2) Acute renal failure (3) Atrial fibrillation (4) PVD (peripheral vascular disease) (5) Seizure (6) Endotracheally intubated (7) Respiratory failure Assessment and Plan No new cardiac issues. A fib rate controlled. EEG suggestive of possible seizure , evaluated by neurology. Continue ICU care. I recommend to continue conservative management. Overall prognosis guarded. Slow progress, still intubated. Misael Calderon MD December 11, 2016 13:48
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
[2016-12-11] MEDS: NOREPINEPHRINE-DEXTROSE DRIP 250 ML IV SCH (16:33)
[2016-12-11] MEDS: HEPARIN-D5W INJ 250 ML IV SCH (16:46)
[2016-12-12] VITALS (17 sets, daily range): BP systolic 11–119; BP diastolic 57–73; PULSE 63–120; RESP 26–31; TEMP 95.9–98; O2SAT 96–100
[2016-12-12] MEDS: metroNIDAZOLE 500 MG INJ 100 ML IV SCH ×3 (00:49→17:00)
[2016-12-12 01:38] LABS: BLOOD GAS BASE EXCESS 2.9 mmol/L (-2-2); BLOOD GAS CARBOXYHEMOGLOBIN 1.8 % (0-4); BLOOD GAS HCO3 27 mmol/L (22-26); BLOOD GAS METHEMOGLOBIN 0.4 % (0-2); BLOOD GAS O2 HGB SATURATION 95 % (90-100); BLOOD GAS OXYGEN CONTENT 14.1 Vol % (12.0-20.0); BLOOD GAS PCO2 46 mmHg (38-42); BLOOD GAS PO2 97 mmHg (61-120); BLOOD GAS TOTAL HGB 10.5 G/DL (12.0-16.0); TEMP CORR TO 98.6
[2016-12-12 01:39] LABS: CRITICAL VALUE NO; DRAW SITE LT RADIAL; FIO2 40 %; LITER FLOW 5 L/M; NUMBER OF ARTERIAL PUNCTURES 1; OXYGEN DEVICE NASAL CANNULA; ULNAR PULSE PRESENT
[2016-12-12 01:40] LABS: STAT NO
--- NOTE | 2016-12-12 01:50 | RADRPT ---
EXAM DATE/TIME: 12/12/2016 01:29 [place] COMPARISON: CHEST SINGLE AP, December 10, 2016, 8:53. INDICATIONS : Short of breath. MEDICAL HISTORY : Hypertension. Congestive heart failure. SURGICAL HISTORY : None. ENCOUNTER: Subsequent ACUITY: 1 week PAIN SCORE: 0/10 LOCATION: Bilateral chest FINDINGS: There is worsening air space process in the left lung since the prior exam. Previously seen ET tube h as been removed. NG tube is present with tip in the stomach. Right IJ line is present with tip overla pping the expected region of the SVC. The rest of the examination has not significantly changed. CONCLUSION: ET tube is not visualized and left lung air space process has progressed and left pleural effusion ma y also be present. There may be also superimposed collapse of left lower lobe. Bri Jane MD on December 12, 2016 at 1:47 Board Certified Radiologist. This report was verified electronically.
[2016-12-12] MEDS: FREE WATER G-TUBE SCH ×6 (04:00→20:00)
[2016-12-12] MEDS: CHLORHEXIDINE GLUCONATE 2 % 1 PACK (2 CLOTHS) TOP SCH ×2 (04:00→20:23)
[2016-12-12] MEDS: FOSPHENYTOIN SODIUM 100 MG PE/2 ML VIAL IV SCH ×4 (04:24→20:22)
[2016-12-12 04:58] LABS: APTT (PATIENT) 48.6 SEC (24.3-30.1)
[2016-12-12 06:48] LABS: AUTOMATED NEUTROPHIL # 8.1 TH/MM3 (1.8-7.7); BASOPHIL # 0.1 TH/MM3 (0-0.2); BASOPHIL % 0.6 % (0.0-2.0); EOSINOPHIL # 0.1 TH/MM3 (0-0.4); EOSINOPHIL % 0.9 % (0.0-4.0); LYMPH % 28.1 % (9.0-44.0); LYMPHOCYTE # 3.6 TH/MM3 (1.0-4.8); MEAN CELL VOLUME 100.8 FL (80.0-100.0); MEAN CORPUSCULAR HEMOGLOBIN 33.2 PG (27.0-34.0); MONO % 7.8 % (0.0-8.0); NEUT % 62.6 % (16.0-70.0); PLATELET COUNT 228 TH/MM3 (150-450); RED BLOOD COUNT 2.98 MIL/MM3 (4.50-5.90); RED CELL DISTRIBUTION WIDTH 17.9 % (11.6-17.2); WHITE BLOOD COUNT 12.9 TH/MM3 (4.0-11.0)
[2016-12-12] MEDS: METOPROLOL TARTRATE 5 MG/5 ML VIAL IV PUSH SCH ×4 (06:51→18:00)
[2016-12-12 07:00] LABS: HEMO FLAGS AUTO DIFF
[2016-12-12] MEDS ORDERED: MAGNESIUM SULFATE 2 GM/NS 100 ML IV ONE ×2 (07:00)
[2016-12-12] MEDS: INSULIN ASPART SUPPLEMENTAL SCALE SQ SCH ×2 (07:00→16:00)
[2016-12-12 07:04] LABS: ALT (GPT) 30 U/L (12-78); ANION GAP 8 MEQ/L (5-15); AST (GOT) 32 U/L (15-37); BLOOD UREA NITROGEN 42 MG/DL (7-18); CHLORIDE 111 MEQ/L (98-107); GLOMERULAR FILTRATION RATE 46 ML/MIN (>89); POTASSIUM 4.5 MEQ/L (3.5-5.1); SODIUM (NA) 149 MEQ/L (136-145)
[2016-12-12 07:06] LABS: ALKALINE PHOSPHATASE 218 U/L (45-117)
[2016-12-12 07:31] LABS: BANDS 2 % (0-6); BASOPHILS 2 % (0-2); EOSINOPHILS 1 % (0-4); MYELOCYTES 1 % (0-0); NEUTROPHIL # MANUAL DIFF 9.2 TH/MM3 (1.8-7.7); POLYS (SEG NEUTROPHILS) 68 % (16-70); WBC DIFF SAMPLE 100
[2016-12-12 07:33] LABS: PLATELET ESTIMATE SMEAR NORMAL (NORMAL); PLATELET MORPHOLOGY NORMAL (NORMAL); SCAN/DIFF FINAL DIFF MANUAL
[2016-12-12] MEDS ORDERED: MAGNESIUM SULFATE 1 GM PREMIX 100 ML ONE (07:53)
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
[2016-12-12] MEDS: PANTOPRAZOLE SODIUM 40 MG VIAL IV SCH (08:56)
[2016-12-12] MEDS: SODIUM CHLORIDE 0.9% FLUSH 10 ML FLUSH SCH ×2 (09:00→20:20)
[2016-12-12] MEDS: DOCUSATE SODIUM 100 MG/10 ML UDC G-TUBE SCH ×2 (09:00→20:20)
[2016-12-12] MEDS: PROPRANOLOL HCL 10 MG TAB PO SCH ×2 (09:00→20:21)
[2016-12-12] MEDS: PRAVASTATIN SOD 40 MG TAB PO SCH (10:17)
[2016-12-12] MEDS: ASPIRIN 81 MG CHEW TAB CHEW SCH (10:17)
[2016-12-12] MEDS: OLANZapine ODT 10 MG TAB PO SCH ×3 (10:34→20:22)
[2016-12-12] MEDS: DEXMEDETOMIDINE INJ 1,000 MCG in SODIUM CHLOR 0.9% 250 ML INJ 240 ML IV SCH (11:06)
[2016-12-12 11:14] LABS: BLOOD, URINE NEG (NEG); COMMENT (UR) CATH-CULT NOT IND; CULTURE IF INDICATED CATH CULTURE NOT IND; GLUCOSE,URINE NEG (NEG); HYALINE CAST, URINE 3 /lpf (RARE); KETONE, URINE NEG (NEG); MUCUS URINE FEW /lpf (OCC); NITRITE,URINE NEG (NEG); SQUAMOUS EPITHELIAL CELL URINE <1 /hpf (0-5); URINE COLOR YELLOW (YELLW/STRAW)
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
[2016-12-12] MEDS ORDERED: DOPamine INJ PREMIX 500 ML ONE (11:55)
[2016-12-12] MEDS: LEVOFLOXACIN/DEXTROSE 250 MG/50 ML IV SCH (12:38)
[2016-12-12] MEDS: CHLORHEXIDINE 0.12% (ORAL KIT) 15 ML CUP MT SCH ×2 (14:41→20:00)
[2016-12-12] MEDS: DOPamine 800 MG/D5W PREMIX 500 ML IV SCH (14:41)
[2016-12-12] MEDS: HEPARIN-D5W INJ 250 ML IV SCH (15:05)
--- NOTE | 2016-12-12 15:35 | HHI.PR ---
Review/Management Diagnosis possible sz, epileptiform activity on eeg Plan continue phenytoin Diagnosis/Plan: Subjective Subjective Comments No acute events reported Active Medications Current Medications Medications (Trade) Dose Ordered Sig/Elvin Route Start Time Stop Time Status Last Admin (Peridex 0.12% Liq) 15 ml BID@08,20 MT 11/28/16 20:00 12/12/16 14:41 (NS Flush) 2 ml UNSCH PRN .XX 11/28/16 19:15 12/06/16 03:30 (NS Flush) 2 ml BID .XX 11/28/16 21:00 12/11/16 21:51 (Protonix Inj) 40 mg DAILY IV 11/29/16 09:00 12/12/16 08:56 (Zofran Inj) 4 mg Q6H PRN IV 11/28/16 19:15 (Colace Liq) 100 mg Q12H G-TUBE 11/28/16 21:00 12/06/16 21:07 Miscellaneous Information 1 Q361D XX 11/28/16 19:15 (Chlorhexidine 2% Cloth) Taper DAILY@04 TOP 11/29/16 04:00 11/25/17 03:59 12/12/16 04:00 (Chlorhexidine 2% Cloth) 3 pack UNSCH PRN TOP 11/28/16 19:15 (D50w (Vial) Inj) 25 ml UNSCH PRN IV PUSH 11/28/16 19:15 Glucagon 1 mg 1 mg UNSCH PRN OTHER 11/28/16 19:15 (Levophed-Dextrose Drip) 250 ml @ 0 mls/hr TITRATE IV 11/28/16 21:30 12/11/16 16:33 (Brethine Inj) 1 mg UNSCH PRN SQ 11/28/16 21:30 (Heparin Inj) 5,000 units UNSCH PRN IV 11/29/16 06:30 Heparin Sodium (Porcine) 2500 units 2,500 units UNSCH PRN IV 11/29/16 06:30 (Heparin-D5W Inj) 250 ml @ 0 mls/hr TITRATE IV 11/29/16 00:30 12/12/16 15:05 (Aspirin Chew) 162 mg DAILY CHEW 11/29/16 02:45 12/12/16 10:17 ([place] 5-325 Mg) 1 tab Q4H PRN OG-TUBE 11/29/16 09:00 12/10/16 16:08 (Pravachol) 40 mg DAILY PO 11/29/16 09:00 12/12/16 10:17 Fosphenytoin Sodium 100 mgpe 100 mgpe Q6H IV 11/30/16 22:00 12/12/16 09:17 (Precedex Inj/NS 250 ml Inj) 250 ml @ 0 mls/hr TITRATE IV 12/02/16 09:01 12/12/16 11:06 (Haldol Inj) 5 mg Q2H PRN IV 12/02/16 17:15 12/04/16 21:52 (NovoLOG SUPPLEMENTAL SCALE) 1 DAILY@07,16 SQ 12/03/16 07:00 12/11/16 16:16 (Inderal) 10 mg Q12HR PO 12/03/16 16:00 12/11/16 11:48 Metoprolol Tartrate 5 mg 5 mg Q6HR IV PUSH 12/04/16 00:00 12/12/16 06:51 (Flagyl 500 Mg Inj) 100 ml @ 100 mls/hr Q8H IV 12/04/16 16:30 12/12/16 08:56 Furosemide 20 mg 20 mg DAILY IV PUSH 12/06/16 09:00 Hold 12/11/16 08:41 (Levaquin 250 Mg Premix Inj) 50 ml @ 50 mls/hr Q24H IV 12/07/16 12:00 12/12/16 12:38 (Free Water) VOLUME OF WATER: ( 200 )... Q4HR G-TUBE 12/09/16 08:00 12/12/16 04:00 Olanzapine 10 mg 10 mg Q8HR PO 12/12/16 08:30 12/12/16 14:48 (DOPamine INJ PREMIX) 500 ml @ 0 mls/hr TITRATE IV 12/12/16 13:30 12/12/16 14:41 Allergies Allergies Coded Allergies No Known Allergies (Verified11/28/16) Exam I&O / VS 12/11/16 12/11/16 12/12/16 15:00 23:00 07:00 Intake Total 1559 ml 760 ml 757 ml Output Total 925 ml 700 ml 550 ml Balance 634 ml 60 ml 207 ml Intake IV Total 666 ml 560 ml 557 ml Tube Feeding 493 ml 0 ml 0 ml Other 400 ml 200 ml 200 ml Output Urine Total 925 ml 700 ml 550 ml # Bowel Movements 0 0 Vital Signs Date Time Temp Pulse Resp B/P Pulse Ox O2 Delivery O2 Flow Rate FiO2 12/12/16 12:00 63 12/12/16 12:00 96.8 63 31 100/58 96 12/12/16 11:32 100 30 12/12/16 10:00 66 12/12/16 08:01 100 30 12/12/16 08:00 98 Bi-Pap 30 12/12/16 08:00 97.3 77 29 107/57 98 12/12/16 08:00 77 12/12/16 06:00 89 12/12/16 04:00 98.0 98 27 119/73 96 12/12/16 04:00 84 12/12/16 03:55 99 30 12/12/16 02:00 87 12/12/16 00:00 98 12/12/16 00:00 98.0 98 27 119/73 96 12/11/16 22:00 92 12/11/16 20:54 100 Nasal Cannula 5.00 12/11/16 20:00 98.1 99 26 127/66 100 12/11/16 20:00 99 12/11/16 19:00 100 Nasal Cannula 5.00 12/11/16 18:00 87 12/11/16 16:00 98.0 82 32 93/55 98 12/11/16 16:00 82 Exam Comments not following commands. perrl Motor--no focal deficit, no posturing Objective Micro and Labs Laboratory Tests Test 12/12/16 12/12/16 12/12/16 12/12/16 01:20 04:05 06:15 10:28 Blood Gas Puncture Site LT RADIAL Blood Gas Patient Temperature 98.6 Blood Gas HCO3 27 Blood Gas Base Excess 2.9 Blood Gas Oxygen Saturation 95 Arterial Blood pH 7.39 Arterial Blood Partial 46 Pressure CO2 Arterial Blood Partial 97 Pressure O2 Arterial Blood Oxygen Content 14.1 Arterial Blood 1.8 Carboxyhemoglobin Arterial Blood Methemoglobin 0.4 Blood Gas Hemoglobin 10.5 Oxygen Delivery Device NASAL CANNULA Blood Gas Liter Flow 5 Blood Gas Inspired Oxygen 40 Activated Partial 48.6 Thromboplast Time White Blood Count 12.9 Red Blood Count 2.98 Hemoglobin 9.9 Hematocrit 30.0 Mean Corpuscular Volume 100.8 Mean Corpuscular Hemoglobin 33.2 Mean Corpuscular Hemoglobin 33.0 Concent Red Cell Distribution Width 17.9 Platelet Count 228 Mean Platelet Volume 7.5 Neutrophils (%) (Auto) 62.6 Lymphocytes (%) (Auto) 28.1 Monocytes (%) (Auto) 7.8 Eosinophils (%) (Auto) 0.9 Basophils (%) (Auto) 0.6 Neutrophils # (Auto) 8.1 Lymphocytes # (Auto) 3.6 Monocytes # (Auto) 1.0 Eosinophils # (Auto) 0.1 Basophils # (Auto) 0.1 CBC Comment AUTO DIFF Differential Total Cells 100 Counted Neutrophils % (Manual) 68 Band Neutrophils % 2 Lymphocytes % 21 Monocytes % 5 Eosinophils % 1 Basophils % 2 Neutrophils # (Manual) 9.2 Myelocytes 1 Differential Comment FINAL DIFF MANUAL Platelet Estimate NORMAL Platelet Morphology Comment NORMAL Sodium Level 149 Potassium Level 4.5 Chloride Level 111 Carbon Dioxide Level 30.0 Anion Gap 8 Blood Urea Nitrogen 42 Creatinine 1.48 Estimat Glomerular Filtration 46 Rate Random Glucose 144 Calcium Level 8.6 Magnesium Level 2.1 Total Bilirubin 1.0 Aspartate Amino Transf 32 (AST/SGOT) Alanine Aminotransferase 30 (ALT/SGPT) Alkaline Phosphatase 218 Total Protein 5.6 Albumin 2.3 Urine Color YELLOW Urine Turbidity CLEAR Urine pH 5.0 Urine Specific [place] 1.019 Urine Protein TRACE Urine Glucose (UA) NEG Urine Ketones NEG Urine Occult Blood NEG Urine Nitrite NEG Urine Bilirubin NEG Urine Urobilinogen LESS THAN 2.0 Urine Leukocyte Esterase NEG Urine RBC LESS THAN 1 Urine WBC LESS THAN 1 Urine Squamous Epithelial <1 Cells Urine Hyaline Casts 3 Urine Mucus FEW Microscopic Urinalysis Comment CATH-CULT NOT IND Date/Time Procedure Status Source Growth 12/12/16 10:14 Aerobic Blood Culture Received Blood Peripheral Pending 12/12/16 10:14 Anaerobic Blood Culture Received Blood Peripheral Pending Jayce Wood PhD December 12, 2016 15:35
--- NOTE | 2016-12-12 18:27 | PD.CARD.PN ---
Subjective Subjective Remarks Confused, on BiPAP, long pauses this AM, now on low dose dopa Objective Medications Current Medications Medications (Trade) Dose Ordered Sig/Elvin Route Start Time Stop Time Status Last Admin (Peridex 0.12% Liq) 15 ml BID@08,20 MT 11/28/16 20:00 12/12/16 14:41 (NS Flush) 2 ml UNSCH PRN .XX 11/28/16 19:15 12/06/16 03:30 (NS Flush) 2 ml BID .XX 11/28/16 21:00 12/11/16 21:51 (Protonix Inj) 40 mg DAILY IV 11/29/16 09:00 12/12/16 08:56 (Zofran Inj) 4 mg Q6H PRN IV 11/28/16 19:15 (Colace Liq) 100 mg Q12H G-TUBE 11/28/16 21:00 12/06/16 21:07 Miscellaneous Information 1 Q361D XX 11/28/16 19:15 (Chlorhexidine 2% Cloth) Taper DAILY@04 TOP 11/29/16 04:00 11/25/17 03:59 12/12/16 04:00 (Chlorhexidine 2% Cloth) 3 pack UNSCH PRN TOP 11/28/16 19:15 (D50w (Vial) Inj) 25 ml UNSCH PRN IV PUSH 11/28/16 19:15 Glucagon 1 mg 1 mg UNSCH PRN OTHER 11/28/16 19:15 (Levophed-Dextrose Drip) 250 ml @ 0 mls/hr TITRATE IV 11/28/16 21:30 12/11/16 16:33 (Brethine Inj) 1 mg UNSCH PRN SQ 11/28/16 21:30 (Heparin Inj) 5,000 units UNSCH PRN IV 11/29/16 06:30 Heparin Sodium (Porcine) 2500 units 2,500 units UNSCH PRN IV 11/29/16 06:30 (Heparin-D5W Inj) 250 ml @ 0 mls/hr TITRATE IV 11/29/16 00:30 12/12/16 15:05 (Aspirin Chew) 162 mg DAILY CHEW 11/29/16 02:45 12/12/16 10:17 ([place] 5-325 Mg) 1 tab Q4H PRN OG-TUBE 11/29/16 09:00 12/10/16 16:08 (Pravachol) 40 mg DAILY PO 11/29/16 09:00 12/12/16 10:17 Fosphenytoin Sodium 100 mgpe 100 mgpe Q6H IV 11/30/16 22:00 12/12/16 16:00 (Precedex Inj/NS 250 ml Inj) 250 ml @ 0 mls/hr TITRATE IV 12/02/16 09:01 12/12/16 11:06 (Haldol Inj) 5 mg Q2H PRN IV 12/02/16 17:15 12/04/16 21:52 (NovoLOG SUPPLEMENTAL SCALE) 1 DAILY@07,16 SQ 12/03/16 07:00 12/11/16 16:16 (Inderal) 10 mg Q12HR PO 12/03/16 16:00 12/11/16 11:48 Metoprolol Tartrate 5 mg 5 mg Q6HR IV PUSH 12/04/16 00:00 12/12/16 06:51 (Flagyl 500 Mg Inj) 100 ml @ 100 mls/hr Q8H IV 12/04/16 16:30 12/12/16 17:00 Furosemide 20 mg 20 mg DAILY IV PUSH 12/06/16 09:00 Hold 12/11/16 08:41 (Levaquin 250 Mg Premix Inj) 50 ml @ 50 mls/hr Q24H IV 12/07/16 12:00 12/12/16 12:38 (Free Water) VOLUME OF WATER: ( 200 )... Q4HR G-TUBE 12/09/16 08:00 12/12/16 04:00 Olanzapine 10 mg 10 mg Q8HR PO 12/12/16 08:30 12/12/16 14:48 (DOPamine INJ PREMIX) 500 ml @ 0 mls/hr TITRATE IV 12/12/16 13:30 12/12/16 14:41 Vital Signs / I&O Vital Signs Date Time Temp Pulse Resp B/P Pulse Ox O2 Delivery O2 Flow Rate FiO2 12/12/16 16:13 96 30 12/12/16 16:00 95.9 108 26 115/66 98 12/12/16 16:00 108 12/12/16 14:00 90 12/12/16 12:00 63 12/12/16 12:00 96.8 63 31 100/58 96 12/12/16 11:32 100 30 12/12/16 10:00 66 12/12/16 08:01 100 30 12/12/16 08:00 98 Bi-Pap 30 12/12/16 08:00 97.3 77 29 107/57 98 12/12/16 08:00 77 12/12/16 06:00 89 12/12/16 04:00 98.0 98 27 119/73 96 12/12/16 04:00 84 12/12/16 03:55 99 30 12/12/16 02:00 87 12/12/16 00:00 98 12/12/16 00:00 98.0 98 27 119/73 96 12/11/16 22:00 92 12/11/16 20:54 100 Nasal Cannula 5.00 12/11/16 20:00 98.1 99 26 127/66 100 12/11/16 20:00 99 12/11/16 19:00 100 Nasal Cannula 5.00 I/O 12/11/16 12/11/16 12/11/16 12/12/16 12/12/16 12/12/16 07:00 15:00 23:00 07:00 15:00 23:00 Intake Total 656 ml 1559 ml 760 ml 757 ml 1309 ml Output Total 375 ml 925 ml 700 ml 550 ml 550 ml Balance 281 ml 634 ml 60 ml 207 ml 759 ml Intake IV Total 218 ml 666 ml 560 ml 557 ml 1309 ml Tube Feeding 238 ml 493 ml 0 ml 0 ml 0 ml Other 200 ml 400 ml 200 ml 200 ml 0 ml Output Urine Total 375 ml 925 ml 700 ml 550 ml 550 ml # Bowel Movements 0 0 0 0 Physical Exam GENERAL: Confused SKIN: Warm and dry. HEAD: Normocephalic. EYES: No scleral icterus. No injection or drainage. NECK: Supple, trachea midline. No JVD or lymphadenopathy. CARDIOVASCULAR: Irregular rate and rhythm with systolic murmur, no gallops or rubs. RESPIRATORY: Breath sounds equal bilaterally. No accessory muscle use. GASTROINTESTINAL: Abdomen soft, non-tender, nondistended. MUSCULOSKELETAL: No cyanosis, mild edema. Laboratory Laboratory Tests Test 5/24/17 5/24/17 5/24/17 5/24/17 01:20 04:05 06:15 10:28 Blood Gas Puncture Site LT RADIAL Blood Gas Patient Temperature 98.6 Blood Gas HCO3 27 mmol/L Blood Gas Base Excess 2.9 mmol/L Blood Gas Oxygen Saturation 95 % Arterial Blood pH 7.39 Arterial Blood Partial 46 mmHg Pressure CO2 Arterial Blood Partial 97 mmHg Pressure O2 Arterial Blood Oxygen Content 14.1 Vol % Arterial Blood 1.8 % Carboxyhemoglobin Arterial Blood Methemoglobin 0.4 % Blood Gas Hemoglobin 10.5 G/DL Oxygen Delivery Device NASAL CANNULA Blood Gas Liter Flow 5 L/M Blood Gas Inspired Oxygen 40 % Activated Partial 48.6 SEC Thromboplast Time White Blood Count 12.9 TH/MM3 Red Blood Count 2.98 MIL/MM3 Hemoglobin 9.9 GM/DL Hematocrit 30.0 % Mean Corpuscular Volume 100.8 FL Mean Corpuscular Hemoglobin 33.2 PG Mean Corpuscular Hemoglobin 33.0 % Concent Red Cell Distribution Width 17.9 % Platelet Count 228 TH/MM3 Mean Platelet Volume 7.5 FL Neutrophils (%) (Auto) 62.6 % Lymphocytes (%) (Auto) 28.1 % Monocytes (%) (Auto) 7.8 % Eosinophils (%) (Auto) 0.9 % Basophils (%) (Auto) 0.6 % Neutrophils # (Auto) 8.1 TH/MM3 Lymphocytes # (Auto) 3.6 TH/MM3 Monocytes # (Auto) 1.0 TH/MM3 Eosinophils # (Auto) 0.1 TH/MM3 Basophils # (Auto) 0.1 TH/MM3 CBC Comment AUTO DIFF Differential Total Cells 100 Counted Neutrophils % (Manual) 68 % Band Neutrophils % 2 % Lymphocytes % 21 % Monocytes % 5 % Eosinophils % 1 % Basophils % 2 % Neutrophils # (Manual) 9.2 TH/MM3 Myelocytes 1 % Differential Comment FINAL DIFF MANUAL Platelet Estimate NORMAL Platelet Morphology Comment NORMAL Sodium Level 149 MEQ/L Potassium Level 4.5 MEQ/L Chloride Level 111 MEQ/L Carbon Dioxide Level 30.0 MEQ/L Anion Gap 8 MEQ/L Blood Urea Nitrogen 42 MG/DL Creatinine 1.48 MG/DL Estimat Glomerular Filtration 46 ML/MIN Rate Random Glucose 144 MG/DL Calcium Level 8.6 MG/DL Magnesium Level 2.1 MG/DL Total Bilirubin 1.0 MG/DL Aspartate Amino Transf 32 U/L (AST/SGOT) Alanine Aminotransferase 30 U/L (ALT/SGPT) Alkaline Phosphatase 218 U/L Total Protein 5.6 GM/DL Albumin 2.3 GM/DL Urine Color YELLOW Urine Turbidity CLEAR Urine pH 5.0 Urine Specific [place] 1.019 Urine Protein TRACE mg/dL Urine Glucose (UA) NEG mg/dL Urine Ketones NEG mg/dL Urine Occult Blood NEG Urine Nitrite NEG Urine Bilirubin NEG Urine Urobilinogen LESS THAN 2.0 MG/DL Urine Leukocyte Esterase NEG Urine RBC LESS THAN 1 /hpf Urine WBC LESS THAN 1 /hpf Urine Squamous Epithelial <1 /hpf Cells Urine Hyaline Casts 3 /lpf Urine Mucus FEW /lpf Microscopic Urinalysis Comment CATH-CULT NOT IND Imaging Last Impressions Chest X-Ray 12/12/16 0000 Signed Impressions: Service Date/Time: Monday, December 12, 2016 01:29 - CONCLUSION: ET tube is not visualized and left lung air space process has progressed and left pleural effusion may also be present. There may be also superimposed collapse of left lower lobe. Bri Jane MD Abdomen X-Ray 12/06/16 0000 Signed Impressions: Service Date/Time: November 12:27 - CONCLUSION: No evidence of obstruction. Nasogastric tube in the stomach Ulisses Tavarez MD Head Magnetic Resonance Angiography 11/28/162130 Signed Impressions: Service Date/Time: Monday, November 28, 2016 23:27 - CONCLUSION: 1. 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 No acute abnormality. Edmond Chavis Jr., MD Head CT 11/28/16 1643 Signed Impressions: Service Date/Time: Monday, November 28, 2016 17:40 - CONCLUSION: Evidence for a previous head trauma with surgery as described above. There are no acute changes evident. Kev Louise MD FACR Lung Scan-VQ Nuclear Medicine 11/28/16 0000 Signed Impressions: Service Date/Time: Monday, November 28, 2016 23:58 - CONCLUSION: Normal examination. Edmond Chavis Jr., MD Lower Extremity Ultrasound 11/28/16 0000 Signed Impressions: Service Date/Time: Monday, November 28, 2016 19:22 - CONCLUSION: Normal examination. Lee Mcbride MD Brain MRI 11/28/16 0000 Signed Impressions: Service Date/Time: Monday, November 28, 2016 23:27 - CONCLUSION: 1. No acute intracranial abnormality. 2. Multiple sites of encephalomalacia as detailed above. 3. Chronic small vessel ischemic change. 4. Chronic paranasal sinus disease. Edmond Chavis Jr., MD Abdomen Ultrasound 11/28/16 0000 Signed Impressions: Service Date/Time: Monday, November 28, 2016 19:04 - CONCLUSION: Chronic-appearing renal disease. No acute findings Lee Mcbride MD Assessment and Plan Problem List: (1) PEA (Pulseless electrical activity) (2) Acute renal failure (3) Atrial fibrillation (4) PVD (peripheral vascular disease) (5) Seizure (6) Endotracheally intubated (7) Respiratory failure Assessment and Plan A fib rate controlled, pauses this AM, now resolved. EEG suggestive of possible seizure, evaluated by neurology. Continue ICU care. I recommend to continue conservative management. Overall prognosis guarded. Slow progress, still very confused. Not sure how much more improvement we can achieve. Palliative care involved. Misael Calderon MD December 12, 2016 18:27
[2016-12-13] VITALS (19 sets, daily range): BP systolic 94–125; BP diastolic 54–61; PULSE 82–136; RESP 12–23; TEMP 97–99.1; O2SAT 93–100
[2016-12-13] MEDS: metroNIDAZOLE 500 MG INJ 100 ML IV SCH ×3 (01:08→15:39)
[2016-12-13] MEDS: FREE WATER G-TUBE SCH ×6 (04:00→20:00)
[2016-12-13] MEDS: ACETAMINOPHEN/HYDROcodone 325 MG/5 MG TAB OG-TUBE PRN (04:00)
[2016-12-13 05:36] LABS: APTT (PATIENT) 68.2 SEC (24.3-30.1)
[2016-12-13] MEDS: OLANZapine ODT 10 MG TAB PO SCH ×3 (06:00→20:39)
[2016-12-13] MEDS: METOPROLOL TARTRATE 5 MG/5 ML VIAL IV PUSH SCH ×2 (06:00)
[2016-12-13] MEDS: FOSPHENYTOIN SODIUM 100 MG PE/2 ML VIAL IV SCH ×4 (06:02→20:38)
[2016-12-13] MEDS: DEXMEDETOMIDINE INJ 1,000 MCG in SODIUM CHLOR 0.9% 250 ML INJ 240 ML IV SCH (06:05)
[2016-12-13] MEDS: INSULIN ASPART SUPPLEMENTAL SCALE SQ SCH ×2 (06:49→15:38)
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
[2016-12-13] MEDS ORDERED: PILL SPLITTER OTHER PRN (08:00)
[2016-12-13] MEDS: DOCUSATE SODIUM 100 MG/10 ML UDC G-TUBE SCH ×2 (09:00→20:38)
[2016-12-13] MEDS: SODIUM CHLORIDE 0.9% FLUSH 10 ML FLUSH SCH ×2 (09:42→20:37)
[2016-12-13] MEDS: ASPIRIN 81 MG CHEW TAB CHEW SCH (09:43)
[2016-12-13] MEDS: PRAVASTATIN SOD 40 MG TAB PO SCH (09:43)
[2016-12-13] MEDS: PANTOPRAZOLE SODIUM 40 MG VIAL IV SCH (09:44)
[2016-12-13] MEDS: CHLORHEXIDINE 0.12% (ORAL KIT) 15 ML CUP MT SCH ×2 (09:52→20:00)
[2016-12-13 10:23] LABS: MEAN CELL VOLUME 100.8 FL (80.0-100.0); MEAN CORPUSCULAR HEMOGLOBIN 33.8 PG (27.0-34.0); MEAN CORPUSCULAR HGB CONC 33.6 % (32.0-36.0); PLATELET COUNT 268 TH/MM3 (150-450); RED BLOOD COUNT 2.78 MIL/MM3 (4.50-5.90); RED CELL DISTRIBUTION WIDTH 18.2 % (11.6-17.2); REVIEW FLAG FINAL; WHITE BLOOD COUNT 10.3 TH/MM3 (4.0-11.0)
[2016-12-13 10:47] LABS: BICARBONATE 28.5 MEQ/L (21.0-32.0); POTASSIUM 4.4 MEQ/L (3.5-5.1)
[2016-12-13] MEDS: LEVOFLOXACIN/DEXTROSE 250 MG/50 ML IV SCH (11:20)
[2016-12-13] MEDS: MODAFINIL 200 MG TAB PO SCH (11:20)
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
[2016-12-13] MEDS: HEPARIN-D5W INJ 250 ML IV SCH (14:28)
[2016-12-13] MEDS: HALOPERIDOL LACTATE 5 MG/ML AMP IV PRN (14:43)
--- NOTE | 2016-12-13 17:39 | PD.CARD.PN ---
Subjective Subjective Remarks Still w occ pauses, HR now nl off sedation. Still w significant mental status change. Objective Medications Current Medications Medications (Trade) Dose Ordered Sig/Elvin Route Start Time Stop Time Status Last Admin (Peridex 0.12% Liq) 15 ml BID@08,20 MT 11/28/16 20:00 12/13/16 09:52 (NS Flush) 2 ml UNSCH PRN .XX 11/28/16 19:15 12/06/16 03:30 (NS Flush) 2 ml BID .XX 11/28/16 21:00 12/13/16 09:42 (Protonix Inj) 40 mg DAILY IV 11/29/16 09:00 12/13/16 09:44 (Zofran Inj) 4 mg Q6H PRN IV 11/28/16 19:15 (Colace Liq) 100 mg Q12H G-TUBE 11/28/16 21:00 12/06/16 21:07 Miscellaneous Information 1 Q361D XX 11/28/16 19:15 (Chlorhexidine 2% Cloth) Taper DAILY@04 TOP 11/29/16 04:00 11/25/17 03:59 12/12/16 04:00 (Chlorhexidine 2% Cloth) 3 pack UNSCH PRN TOP 11/28/16 19:15 (D50w (Vial) Inj) 25 ml UNSCH PRN IV PUSH 11/28/16 19:15 Glucagon 1 mg 1 mg UNSCH PRN OTHER 11/28/16 19:15 (Levophed-Dextrose Drip) 250 ml @ 0 mls/hr TITRATE IV 11/28/16 21:30 12/11/16 16:33 (Brethine Inj) 1 mg UNSCH PRN SQ 11/28/16 21:30 (Heparin Inj) 5,000 units UNSCH PRN IV 11/29/16 06:30 Heparin Sodium (Porcine) 2500 units 2,500 units UNSCH PRN IV 11/29/16 06:30 (Heparin-D5W Inj) 250 ml @ 0 mls/hr TITRATE IV 11/29/16 00:30 12/13/16 14:28 (Aspirin Chew) 162 mg DAILY CHEW 11/29/16 02:45 12/13/16 09:43 (Dorothy 5-325 Mg) 1 tab Q4H PRN OG-TUBE 11/29/16 09:00 12/13/16 04:00 (Pravachol) 40 mg DAILY PO 11/29/16 09:00 12/13/16 09:43 Fosphenytoin Sodium 100 mgpe 100 mgpe Q6H IV 11/30/16 22:00 12/13/16 15:38 (Precedex Inj/NS 250 ml Inj) 250 ml @ 0 mls/hr TITRATE IV 12/02/16 09:01 12/13/16 06:05 (Haldol Inj) 5 mg Q2H PRN IV 12/02/16 17:15 12/13/16 14:43 Insulin Aspart 1 1 DAILY@07,16 SQ 12/03/16 07:00 12/11/16 16:16 (Flagyl 500 Mg Inj) 100 ml @ 100 mls/hr Q8H IV 12/04/16 16:30 12/13/16 15:39 Furosemide 20 mg 20 mg DAILY IV PUSH 12/06/16 09:00 Hold 12/11/16 08:41 (Levaquin 250 Mg Premix Inj) 50 ml @ 50 mls/hr Q24H IV 12/07/16 12:00 12/13/16 11:20 (Free Water) VOLUME OF WATER: ( 200 )... Q4HR G-TUBE 12/09/16 08:00 12/13/16 15:38 Olanzapine 10 mg 10 mg Q8HR PO 12/12/16 08:30 12/13/16 13:49 (DOPamine INJ PREMIX) 500 ml @ 0 mls/hr TITRATE IV 12/12/16 13:30 12/12/16 14:41 (Provigil) 100 mg DAILY PO 12/13/16 09:00 12/13/16 11:20 (Pill Splitter) 1 ea UNSCH PRN OTHER 12/13/16 08:00 Vital Signs / I&O Vital Signs Date Time Temp Pulse Resp B/P Pulse Ox O2 Delivery O2 Flow Rate FiO2 12/13/16 16:17 93 40 12/13/16 16:00 99.1 114 21 117/56 96 12/13/16 16:00 114 12/13/16 15:30 96 Bi-Pap 40 12/13/16 15:00 136 12/13/16 14:00 120 12/13/16 13:28 98 30 12/13/16 12:00 98.2 106 16 94/55 99 12/13/16 12:00 106 12/13/16 10:00 107 12/13/16 08:12 98 30 12/13/16 08:00 97.2 100 12 125/61 96 12/13/16 08:00 90 12/13/16 07:00 96 Bi-Pap 30 12/13/16 06:00 82 12/13/16 05:19 95 30 12/13/16 05:00 24 12/13/16 04:00 97.0 93 17 107/57 98 12/13/16 04:00 106 12/13/16 02:00 91 12/13/16 00:45 95 30 12/13/16 00:00 92 12/13/16 00:00 97.7 85 23 102/59 100 12/12/16 22:21 100 30 12/12/16 22:00 101 12/12/16 20:00 97.7 107 28 11/58 99 12/12/16 20:00 107 12/12/16 19:00 99 Bi-Pap 30 12/12/16 18:00 120 I/O 12/12/16 12/12/16 12/12/16 12/13/16 12/13/16 12/13/16 07:00 15:00 23:00 07:00 15:00 23:00 Intake Total 757 ml 2069 ml 880 ml 1263 ml 200 ml Output Total 550 ml 1350 ml 500 ml 350 ml Balance 207 ml 719 ml 380 ml 913 ml 200 ml Intake Oral 0 ml 0 ml IV Total 557 ml 1949 ml 820 ml 863 ml Tube Feeding 0 ml 0 ml Other 200 ml 120 ml 60 ml 400 ml 200 ml Output Urine Total 550 ml 1350 ml 500 ml 350 ml Stool Total 0 ml 0 ml # Bowel Movements 0 0 0 Physical Exam GENERAL: Confused SKIN: Warm and dry. HEAD: Normocephalic. EYES: No scleral icterus. No injection or drainage. NECK: Supple, trachea midline. No JVD or lymphadenopathy. CARDIOVASCULAR: Irregular rate and rhythm with systolic murmur, no gallops or rubs. RESPIRATORY: Breath sounds equal bilaterally. No accessory muscle use. GASTROINTESTINAL: Abdomen soft, non-tender, nondistended. MUSCULOSKELETAL: No cyanosis, mild edema. Laboratory Laboratory Tests Test 12/13/16 12/13/16 05:00 10:05 Activated Partial 68.2 SEC Thromboplast Time White Blood Count 10.3 TH/MM3 Red Blood Count 2.78 MIL/MM3 Hemoglobin 9.4 GM/DL Hematocrit 28.0 % Mean Corpuscular Volume 100.8 FL Mean Corpuscular Hemoglobin 33.8 PG Mean Corpuscular Hemoglobin 33.6 % Concent Red Cell Distribution Width 18.2 % Platelet Count 268 TH/MM3 Mean Platelet Volume 7.6 FL Sodium Level 148 MEQ/L Potassium Level 4.4 MEQ/L Chloride Level 113 MEQ/L Carbon Dioxide Level 28.5 MEQ/L Anion Gap 7 MEQ/L Blood Urea Nitrogen 40 MG/DL Creatinine 1.42 MG/DL Estimat Glomerular Filtration 48 ML/MIN Rate Random Glucose 141 MG/DL Calcium Level 7.9 MG/DL Imaging Last Impressions Chest X-Ray 12/12/16 0000 Signed Impressions: Service Date/Time: Monday, December 12, 2016 01:29 - CONCLUSION: ET tube is not visualized and left lung air space process has progressed and left pleural effusion may also be present. There may be also superimposed collapse of left lower lobe. Bri Jane MD Abdomen X-Ray 12/06/16 0000 Signed Impressions: Service Date/Time: November 12:27 - CONCLUSION: No evidence of obstruction. Nasogastric tube in the stomach Ulisses Tavarez MD Head Magnetic Resonance Angiography 11/28/162130 Signed Impressions: Service Date/Time: Monday, November 28, 2016 23:27 - CONCLUSION: 1. 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 No acute abnormality. Edmond Chavis Jr., MD Head CT 11/28/16 1643 Signed Impressions: Service Date/Time: Monday, November 28, 2016 17:40 - CONCLUSION: Evidence for a previous head trauma with surgery as described above. There are no acute changes evident. Kev Louise MD FACR Lung Scan-V Nuclear Medicine 11/28/16 0000 Signed Impressions: Service Date/Time: Monday, November 28, 2016 23:58 - CONCLUSION: Normal examination. Edmond Chavis Jr., MD Lower Extremity Ultrasound 11/28/16 0000 Signed Impressions: Service Date/Time: Monday, November 28, 2016 19:22 - CONCLUSION: Normal examination. Lee Mcbride MD Brain MRI 11/28/16 Signed Impressions: Service Date/Time: Monday, November 28, 2016 23:27 - CONCLUSION: 1. No acute intracranial abnormality. 2. Multiple sites of encephalomalacia as detailed above. 3. Chronic small vessel ischemic change. 4. Chronic paranasal sinus disease. Edmond Chavis Jr., MD Abdomen Ultrasound 11/28/16 Signed Impressions: Service Date/Time: Monday, November 28, 2016 19:04 - CONCLUSION: Chronic-appearing renal disease. No acute findings Lee Mcbride MD Assessment and Plan Problem List: (1) PEA (Pulseless electrical activity) (2) Acute renal failure (3) Atrial fibrillation (4) PVD (peripheral vascular disease) (5) Seizure (6) Endotracheally intubated (7) Respiratory failure Assessment and Plan A fib rate controlled, pauses resolved off sedation. EEG suggestive of possible seizure, evaluated by neurology. Continue ICU care. I recommend to continue conservative management. Overall prognosis guarded. Slow progress, still quite confused. Palliative care involved. Misael Calderon MD December 13, 2016 17:39
[2016-12-14] VITALS (19 sets, daily range): BP systolic 96–137; BP diastolic 53–58; PULSE 90–114; RESP 12–30; TEMP 97.3–98.6; O2SAT 90–100
[2016-12-14] MEDS: metroNIDAZOLE 500 MG INJ 100 ML IV SCH ×3 (01:26→18:26)
[2016-12-14] MEDS: CHLORHEXIDINE GLUCONATE 2 % 1 PACK (2 CLOTHS) TOP SCH (01:27)
[2016-12-14] MEDS: FREE WATER G-TUBE SCH ×7 (04:00→23:48)
[2016-12-14] MEDS: FOSPHENYTOIN SODIUM 100 MG PE/2 ML VIAL IV SCH ×4 (05:49→20:47)
[2016-12-14] MEDS: OLANZapine ODT 10 MG TAB PO SCH ×3 (05:50→21:07)
[2016-12-14 06:03] LABS: APTT (PATIENT) 120.7 SEC (24.3-30.1)
[2016-12-14 06:12] LABS: BICARBONATE 27.8 MEQ/L (21.0-32.0); POTASSIUM 4.1 MEQ/L (3.5-5.1)
[2016-12-14] MEDS: INSULIN ASPART SUPPLEMENTAL SCALE SQ SCH ×2 (07:00→16:00)
[2016-12-14] MEDS: CHLORHEXIDINE 0.12% (ORAL KIT) 15 ML CUP MT SCH ×2 (08:00→21:05)
[2016-12-14] MEDS: ASPIRIN 81 MG CHEW TAB CHEW SCH (08:02)
[2016-12-14] MEDS: PRAVASTATIN SOD 40 MG TAB PO SCH (08:02)
[2016-12-14] MEDS: HALOPERIDOL LACTATE 5 MG/ML AMP IV PRN ×2 (08:02→18:37)
[2016-12-14] MEDS: DOCUSATE SODIUM 100 MG/10 ML UDC G-TUBE SCH ×2 (08:03→20:46)
[2016-12-14] MEDS: SODIUM CHLORIDE 0.9% FLUSH 10 ML FLUSH SCH ×2 (08:03→20:47)
[2016-12-14] MEDS: MODAFINIL 200 MG TAB PO SCH (08:03)
[2016-12-14] MEDS: PANTOPRAZOLE SODIUM 40 MG VIAL IV SCH (08:03)
[2016-12-14 08:46] LABS: APTT (PATIENT) 42.7 SEC (24.3-30.1)
[2016-12-14] MEDS: DEXMEDETOMIDINE INJ 1,000 MCG in SODIUM CHLOR 0.9% 250 ML INJ 240 ML IV SCH (09:19)
[2016-12-14] MEDS: LEVOFLOXACIN/DEXTROSE 250 MG/50 ML IV SCH (12:42)
--- NOTE | 2016-12-14 13:08 | PD.CARD.PN ---
Subjective Subjective Remarks On BiPAP, confused, no pauses Objective Medications Current Medications Medications (Trade) Dose Ordered Sig/Elvin Route Start Time Stop Time Status Last Admin (Peridex 0.12% Liq) 15 ml BID@08,20 MT 11/28/16 20:00 12/14/16 08:00 (NS Flush) 2 ml UNSCH PRN .XX 11/28/16 19:15 12/06/16 03:30 (NS Flush) 2 ml BID .XX 11/28/16 21:00 12/14/16 08:03 (Protonix Inj) 40 mg DAILY IV 11/29/16 09:00 12/14/16 08:03 (Zofran Inj) 4 mg Q6H PRN IV 11/28/16 19:15 (Colace Liq) 100 mg Q12H G-TUBE 11/28/16 21:00 12/14/16 08:03 Miscellaneous Information 1 Q361D XX 11/28/16 19:15 (Chlorhexidine 2% Cloth) Taper DAILY@04 TOP 11/29/16 04:00 11/25/17 03:59 12/12/16 04:00 (Chlorhexidine 2% Cloth) 3 pack UNSCH PRN TOP 11/28/16 19:15 (D50w (Vial) Inj) 25 ml UNSCH PRN IV PUSH 11/28/16 19:15 Glucagon 1 mg 1 mg UNSCH PRN OTHER 11/28/16 19:15 (Levophed-Dextrose Drip) 250 ml @ 0 mls/hr TITRATE IV 11/28/16 21:30 12/11/16 16:33 (Brethine Inj) 1 mg UNSCH PRN SQ 11/28/16 21:30 (Heparin Inj) 5,000 units UNSCH PRN IV 11/29/16 06:30 Heparin Sodium (Porcine) 2500 units 2,500 units UNSCH PRN IV 11/29/16 06:30 (Heparin-D5W Inj) 250 ml @ 0 mls/hr TITRATE IV 11/29/16 00:30 12/13/16 14:28 (Aspirin Chew) 162 mg DAILY CHEW 11/29/16 02:45 12/14/16 08:02 (Hadley 5-325 Mg) 1 tab Q4H PRN OG-TUBE 11/29/16 09:00 12/13/16 04:00 (Pravachol) 40 mg DAILY PO 11/29/16 09:00 12/14/16 08:02 Fosphenytoin Sodium 100 mgpe 100 mgpe Q6H IV 11/30/16 22:00 12/14/16 09:25 (Precedex Inj/NS 250 ml Inj) 250 ml @ 0 mls/hr TITRATE IV 12/02/16 09:01 12/14/16 09:19 (Haldol Inj) 5 mg Q2H PRN IV 12/02/16 17:15 12/14/16 08:02 Insulin Aspart 1 1 DAILY@07,16 SQ 12/03/16 07:00 12/11/16 16:16 (Flagyl 500 Mg Inj) 100 ml @ 100 mls/hr Q8H IV 12/04/16 16:30 12/14/16 08:01 Furosemide 20 mg 20 mg DAILY IV PUSH 12/06/16 09:00 Hold 12/11/16 08:41 (Levaquin 250 Mg Premix Inj) 50 ml @ 50 mls/hr Q24H IV 12/07/16 12:00 12/14/16 12:42 (Free Water) VOLUME OF WATER: ( 200 )... Q4HR G-TUBE 12/09/16 08:00 12/14/16 12:42 Olanzapine 10 mg 10 mg Q8HR PO 12/12/16 08:30 12/14/16 05:50 (DOPamine INJ PREMIX) 500 ml @ 0 mls/hr TITRATE IV 12/12/16 13:30 12/12/16 14:41 (Provigil) 100 mg DAILY PO 12/13/16 09:00 12/14/16 08:03 (Pill Splitter) 1 ea UNSCH PRN OTHER 12/13/16 08:00 Vital Signs / I&O Vital Signs Date Time Temp Pulse Resp B/P Pulse Ox O2 Delivery O2 Flow Rate FiO2 12/14/16 12:00 90 12/14/16 12:00 97.4 90 27 98/53 97 12/14/16 10:59 94 12/14/16 10:00 105 12/14/16 09:22 95 50 12/14/16 09:22 95 BiPAP 50 12/14/16 08:00 95 12/14/16 08:00 97.3 100 19 109/58 99 12/14/16 07:00 93 Bi-Pap 5.00 50 12/14/16 06:00 92 12/14/16 04:00 98.1 101 22 96/53 96 12/14/16 04:00 101 12/14/16 02:00 91 12/14/16 00:14 95 50 12/14/16 00:00 98.6 112 12 122/57 100 12/14/16 00:00 114 12/13/16 22:00 85 12/13/16 20:00 99.0 115 17 105/54 95 12/13/16 20:00 96 12/13/16 19:54 96 30 12/13/16 19:00 95 Bi-Pap 30 12/13/16 18:00 104 12/13/16 18:00 99 Bi-Pap 30 12/13/16 16:17 93 40 12/13/16 16:00 99.1 114 21 117/56 96 12/13/16 16:00 114 12/13/16 15:30 96 Bi-Pap 40 12/13/16 15:00 136 12/13/16 14:00 120 12/13/16 13:28 98 30 I/O 12/13/16 12/13/16 12/13/16 12/14/16 12/14/16 12/14/16 07:00 15:00 23:00 07:00 15:00 23:00 Intake Total 880 ml 1263 ml 1190 ml 920 ml Output Total 500 ml 350 ml 500 ml 501 ml Balance 380 ml 913 ml 690 ml 419 ml Intake Oral 0 ml 0 ml 0 ml IV Total 820 ml 863 ml 870 ml 800 ml Other 60 ml 400 ml 320 ml 120 ml Output Urine Total 500 ml 350 ml 500 ml 500 ml Stool Total 0 ml 0 ml 1 ml # Bowel Movements 0 Physical Exam GENERAL: Confused, on BiPAP SKIN: Warm and dry. HEAD: Normocephalic. EYES: No scleral icterus. No injection or drainage. NECK: Supple, trachea midline. No JVD or lymphadenopathy. CARDIOVASCULAR: Irregular rate and rhythm with systolic murmur, no gallops or rubs. RESPIRATORY: Breath sounds equal bilaterally. No accessory muscle use. GASTROINTESTINAL: Abdomen soft, non-tender, nondistended. MUSCULOSKELETAL: No cyanosis, mild edema. Laboratory Laboratory Tests Test 12/14/16 12/14/16 05:15 08:15 Activated Partial 120.7 SEC 42.7 SEC Thromboplast Time Sodium Level 148 MEQ/L Potassium Level 4.1 MEQ/L Chloride Level 112 MEQ/L Carbon Dioxide Level 27.8 MEQ/L Anion Gap 8 MEQ/L Blood Urea Nitrogen 34 MG/DL Creatinine 1.37 MG/DL Estimat Glomerular Filtration 50 ML/MIN Rate Random Glucose 135 MG/DL Calcium Level 7.6 MG/DL Imaging Last Impressions Chest X-Ray 12/12/16 0000 Signed Impressions: Service Date/Time: Monday, December 12, 2016 01:29 - CONCLUSION: ET tube is not visualized and left lung air space process has progressed and left pleural effusion may also be present. There may be also superimposed collapse of left lower lobe. Bri Jane MD Abdomen X-Ray 12/06/16 0000 Signed Impressions: Service Date/Time: November 12:27 - CONCLUSION: No evidence of obstruction. Nasogastric tube in the stomach Ulisses Tavarez MD Head Magnetic Resonance Angiography 11/28/162130 Signed Impressions: Service Date/Time: Monday, November 28, 2016 23:27 - CONCLUSION: 1. 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 No acute abnormality. Edmond Chavis Jr., MD Head CT 11/28/16 1643 Signed Impressions: Service Date/Time: Monday, November 28, 2016 17:40 - CONCLUSION: Evidence for a previous head trauma with surgery as described above. There are no acute changes evident. Kev Louise MD FACR Lung Scan-VQ Nuclear Medicine 11/28/16 0000 Signed Impressions: Service Date/Time: Monday, November 28, 2016 23:58 - CONCLUSION: Normal examination. Edmond Chavis Jr., MD Lower Extremity Ultrasound 11/28/16 0000 Signed Impressions: Service Date/Time: Monday, November 28, 2016 19:22 - CONCLUSION: Normal examination. Lee Mcbride MD Brain MRI 11/28/16 0000 Signed Impressions: Service Date/Time: Monday, November 28, 2016 23:27 - CONCLUSION: 1. No acute intracranial abnormality. 2. Multiple sites of encephalomalacia as detailed above. 3. Chronic small vessel ischemic change. 4. Chronic paranasal sinus disease. Edmond Chavis Jr., MD Abdomen Ultrasound 11/28/16 0000 Signed Impressions: Service Date/Time: Monday, November 28, 2016 19:04 - CONCLUSION: Chronic-appearing renal disease. No acute findings Lee Mcbride MD Assessment and Plan Problem List: (1) PEA (Pulseless electrical activity) (2) Acute renal failure (3) Atrial fibrillation (4) PVD (peripheral vascular disease) (5) Seizure (6) Endotracheally intubated (7) Respiratory failure Assessment and Plan No new cardiac issues. A fib rate controlled, pauses resolved off sedation. EEG suggestive of possible seizure, evaluated by neurology. Continue ICU care. I recommend to continue conservative management. Overall prognosis guarded. Slow progress, still quite confused. Palliative care involved. Misael Calderon MD December 14, 2016 13:08
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
--- NOTE | 2016-12-14 14:22 | EKG ---
Date Performed: 12/13/2016 Time Performed: 15:46:34 PTAGE: 81 years EKG: Probable atrial fibrillation with rapid ventricular response with paroxysmal idioventricula r rhythm or aberrant ventricular conduction. Poor R wave progression - probable normal variant Inferi or/lateral ST-T changes may be due to myocardial ischemia Abnormal ECG NO PREVIOUS TRACING DOCTOR: Ulisses Mccray Interpretating Date/Time 12/14/2016 14:20:01
[2016-12-14 14:37] LABS: APTT (PATIENT) 43.5 SEC (24.3-30.1)
[2016-12-14 14:48] LABS: HEMATOCRIT 27.2 % (39.0-51.0); MEAN CELL VOLUME 102.3 FL (80.0-100.0); MEAN CORPUSCULAR HEMOGLOBIN 34.3 PG (27.0-34.0); MEAN CORPUSCULAR HGB CONC 33.5 % (32.0-36.0); PLATELET COUNT 270 TH/MM3 (150-450); RED BLOOD COUNT 2.65 MIL/MM3 (4.50-5.90); REVIEW FLAG FINAL; WHITE BLOOD COUNT 8.4 TH/MM3 (4.0-11.0)
[2016-12-14 15:54] LABS: BLOOD GAS BASE EXCESS -0.8 mmol/L (-2-2); BLOOD GAS CARBOXYHEMOGLOBIN 1.5 % (0-4); BLOOD GAS HCO3 24 mmol/L (22-26); BLOOD GAS METHEMOGLOBIN 0.8 % (0-2); BLOOD GAS O2 HGB SATURATION 92 % (90-100); BLOOD GAS OXYGEN CONTENT 15.8 Vol % (12.0-20.0); BLOOD GAS PCO2 46 mmHg (38-42); BLOOD GAS PO2 76 mmHg (61-120); BLOOD GAS TOTAL HGB 12.2 G/DL (12.0-16.0); CRITICAL VALUE NO; OXYGEN DEVICE BIPAP; TEMP CORR TO 98.6
[2016-12-14 15:55] LABS: FIO2 40 %; VENT SETTINGS IPAP 12/EPAP 6
[2016-12-14 16:00] LABS: DRAW SITE RT RADIAL; NUMBER OF ARTERIAL PUNCTURES 1; STAT NO; ULNAR PULSE PRESENT
[2016-12-14] MEDS: HEPARIN-D5W INJ 250 ML IV SCH (18:35)
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
[2016-12-14 21:57] LABS: APTT (PATIENT) 40.1 SEC (24.3-30.1)
[2016-12-15] VITALS (16 sets, daily range): BP systolic 95–120; BP diastolic 51–67; PULSE 87–123; RESP 18–22; TEMP 97.1–99.2; O2SAT 0–98
[2016-12-15] MEDS: metroNIDAZOLE 500 MG INJ 100 ML IV SCH ×3 (00:15→14:45)
[2016-12-15] MEDS: DOPamine 800 MG/D5W PREMIX 500 ML IV SCH (00:15)
[2016-12-15] MEDS: HALOPERIDOL LACTATE 5 MG/ML AMP IV PRN (02:03)
[2016-12-15] MEDS: CHLORHEXIDINE GLUCONATE 2 % 1 PACK (2 CLOTHS) TOP SCH (02:57)
[2016-12-15 03:37] LABS: HEMATOCRIT 27.8 % (39.0-51.0); MEAN CELL VOLUME 100.8 FL (80.0-100.0); MEAN CORPUSCULAR HEMOGLOBIN 34.5 PG (27.0-34.0); MEAN CORPUSCULAR HGB CONC 34.2 % (32.0-36.0); PLATELET COUNT 324 TH/MM3 (150-450); RED BLOOD COUNT 2.76 MIL/MM3 (4.50-5.90); RED CELL DISTRIBUTION WIDTH 18.3 % (11.6-17.2); REVIEW FLAG FINAL; WHITE BLOOD COUNT 8.8 TH/MM3 (4.0-11.0)
[2016-12-15] MEDS: FREE WATER G-TUBE SCH ×4 (03:49→14:45)
[2016-12-15] MEDS: FOSPHENYTOIN SODIUM 100 MG PE/2 ML VIAL IV SCH ×3 (03:49→14:45)
[2016-12-15] MEDS: DEXMEDETOMIDINE INJ 1,000 MCG in SODIUM CHLOR 0.9% 250 ML INJ 240 ML IV SCH ×2 (04:20→13:12)
[2016-12-15 04:50] LABS: BICARBONATE 26.4 MEQ/L (21.0-32.0); POTASSIUM 3.9 MEQ/L (3.5-5.1)
[2016-12-15] MEDS: INSULIN ASPART SUPPLEMENTAL SCALE SQ SCH ×2 (05:19→16:00)
[2016-12-15] MEDS: OLANZapine ODT 10 MG TAB PO SCH ×2 (05:19→14:44)
[2016-12-15] MEDS: CHLORHEXIDINE 0.12% (ORAL KIT) 15 ML CUP MT SCH (08:00)
[2016-12-15] MEDS: SODIUM CHLORIDE 0.9% FLUSH 10 ML FLUSH SCH (09:00)
[2016-12-15 09:43] LABS: APTT (PATIENT) 53.3 SEC (24.3-30.1)
[2016-12-15] MEDS: PRAVASTATIN SOD 40 MG TAB PO SCH (10:29)
[2016-12-15] MEDS: ASPIRIN 81 MG CHEW TAB CHEW SCH (10:29)
[2016-12-15] MEDS: PANTOPRAZOLE SODIUM 40 MG VIAL IV SCH (10:29)
[2016-12-15] MEDS: DOCUSATE SODIUM 100 MG/10 ML UDC G-TUBE SCH (10:29)
[2016-12-15] MEDS: MODAFINIL 200 MG TAB PO SCH (10:29)
[2016-12-15] MEDS: LEVOFLOXACIN/DEXTROSE 250 MG/50 ML IV SCH (12:03)
[2016-12-15 15:30] LABS: APTT (PATIENT) 47.8 SEC (24.3-30.1)
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
[2016-12-15] MEDS: LORazepam 2 MG/ML VIAL IV PUSH PRN ×2 (18:32→19:15)
[2016-12-15] MEDS: MORPHINE SULFATE 4 MG/ML INJ IV PUSH PRN ×2 (18:32→19:14)
[2016-12-16] MEDS ORDERED: MODAFINIL 200 MG TAB PO SCH (09:00)
--- NOTE | 2017-01-08 19:03 | HHI.DS ---
Summary Note Date of : December 15, 2016 Time Of : 193 Admission Date November 28, 2016 at 17:35 Admitting Diagnosis PEA arrest/intubated/leukocytosis Diagnosis at Time of : Brief History 81-year-old male with past medical history hypertension, atrial fibrillation, peripheral neuropathy, hyperlipidemia, rectal cancer, gout who presents to [facility] emergency department via [facility] following PEA cardiac arrest. His family states that he was playing cards this evening and his family noticed that he had been dropping cards on the floor. They asked him if he was okay and he acted surprised by the question and said he was fine. About 30 minutes later he began shaking his upper extremities while sitting in a chair. [facility] was called and arrived within 10 minutes and found him cyanotic with son holding him up in a chair. He was in PEA. He was given one round of CPR and Epi 1 mg IV and had ROSC. Intubation attempt by [facility] was unsuccessful. He was intubated upon arrival to the emergency department. He was initially started on propofol 10 g per KG per minute post intubation but became hypotensive so propofol was held. Patient was initially completely unresponsive to noxious stimuli for 2-3 hours postintubation, however later began moving all extremities purposefully. Son is his next of kin and states patient is FULL CODE. Family states he had not complained of chest pain, shortness of breath, cough, fever or any other complaints Hospital Course 11/28: 81-year-old male with past medical history hypertension, atrial fibrillation, peripheral neuropathy, hyperlipidemia, rectal cancer, gout who presents to [facility] emergency department via [facility] following PEA cardiac arrest. His family states that he was playing cards this evening and his family noticed that he had been dropping cards on the floor. They asked him if he was okay and he acted surprised by the question and said he was fine. About 30 minutes later he began shaking his upper extremities while sitting in a chair. [facility] was called and arrived within 10 minutes and found him cyanotic with son holding him up in a chair. He was in PEA. He was given one round of CPR and Epi 1 mg IV and had ROSC. Intubation attempt by [facility] was unsuccessful. He was intubated upon arrival to the emergency department. He was initially started on propofol 10 g per KG per minute post intubation but became hypotensive so propofol was held. Patient was initially completely unresponsive to noxious stimuli for 2-3 hours postintubation, however later began moving all extremities purposefully. Son is his next of kin and states patient is FULL CODE. Family states he had not complained of chest pain, shortness of breath, cough, fever or any other complaints 11/29: Remains sedated, orally intubated on mechanical ventilation. Grimaces with painful stimuli and withdraws all 4 extremities. On heparin for anticoagulation. Lower extremity venous Doppler negative for DVT. VQ scan done earlier shows normal perfusion and ventilation. 11/30: Intubated sedated. Intermittently follows commands. Does not tolerate CPAP when sedation is held. I will start Precedex to facilitate weaning. No further seizures reported. 12/01: Extubated yesterday. Reintubated last night for agitation? Currently sedated, orally intubated on mechanical ventilation. 12/02: Extubated on 12/01. On Precedex for delirium. On simple mask O2 10lit/ min currently. 12/03: On nonrebreather facemask. Precedex drip continues. Received 2 doses of Haldol last night and 1 dose of Geodon around 6 PM. He knows his name and follows commands. 12/04: Remains on Precedex drip. Received 2 doses of Haldol overnight. On nonrebreather facemask. Being diuresed. 12/05: Off Precedex drip. Received 1 dose of Geodon last night and 2 doses of Haldol. On partial rebreather facemask. Neuro status seems to be gradually improving. 12/06: Received 1 dose of Geodon last night. Remains on partial rebreather facemask. Was on Ventimask for 5 hours yesterday. Is awake, occasionally follows commands. 12/07: Patient was intubated and placed on mechanical ventilation last night for borderline respiratory status/borderline neurologic status. Currently sedated, orally intubated on mechanical ventilation. White count up to 21,000 today. 12/08: Remains sedated, orally intubated on mechanical ventilation. Tolerating tube feeds. 12/09: Remains sedated, orally intubated on mechanical ventilation. Tolerating tube feeds. On anticoagulation with heparin. 12/10: Sedated, arousable, remains orally intubated on mechanical ventilation. Tolerating tube feeds. On anticoagulation with heparin. 12/11: On Precedex, arousable easily, follows commands occasionally. Remains orally intubated on mechanical ventilation. Tolerating tube feeds. 12/12: clinical decline overnight. extubated yesterday, had to be placed on BiPAP overnight for respiratory distress. also with multiple runs of V Tach and frequent PVCs. back on levophed for hypotension. wbc persistently elevated. afebrile. 12/13: clinically stable. still on bipap. agitation improving, but still on precedex at 1.2 mcg/kg/hr this morning. still having intermittent runs of v.tach and bradycardia. dopamine significantly helped the bradycardia. wbc elevated, but remains afebrile. 12/14: clinically much worse. I evaluated the patient around 1500 (delayed note entry). patient at that time was not following commands. RASS -3. more labored in his respirations. still on BiPAP. fio2 increasing to 60% from 30%. still on precedex and dopamine. I reviewed palliative care notes about discussion with patient regarding healthcare decision maker. I telephoned his ex- and his son and had a conversation with both of them together. I relayed the information that the patient had specifically requested that his ex- be the medical decision maker for him. I asked her what he would want in this situation, since prior decisions from the son had been for aggressive care, including trach/peg and long-term mechanical ventilation. The ex- said she knows his wishes well and he would not want re-intubation or tracheostomy, and would not want life-saving measures such as CPR. The son disagreed. We came to an agreement that for now, we would honor his wishes as expressed by his ex- , we would not do CPR or intubation. we would, however, continue aggressive measures up to that point, including continuing BiPAP until the family could be at bedside tomorrow. His ex- was in favor of full withdraw of support and palliation, but I believe it is in the best interest of the patient that his family be at bedside to have a second discussion about his wishes tomorrow, since there is such discord and disagreement amongst the family. for now, I have made the patient DNR/DNI in accordance with his wishes as expressed by his ex- and health care decision maker (whom he specifically named). 12/15: not much improvement overnight. still weak. on BiPAP. keeps having bradycardic pauses as well as short runs of v.tach. family coming today. I previously asked the ex- and the son to be a bedside this morning so we did have a more thorough goals of care discussion. Unfortunately, due to their car breaking down, the family was unable to get there until late this afternoon. I did have a very long conversation with both the ex- and the son at bedside. Yesterday, the ex- had expressed to me that the patient would not have wanted to live like this, and that she would ask that we pursue comfort measures and palliation. She expressed she did not want intubation or tracheostomy or CPR. We let the patient is a DNR, and wanted to have a second discussion today. Today, the very first thing she asked me was how we can transfer the patient to hospice and make him more comfortable. We again had a whole conversation about the fact that Mr. Obando was unlikely to survive this hospitalization, multiple organ systems were involved, and he was visibly in pain and distress. The son, who continues to be resistant to palliation, continued to strongly urged that we had to keep the BiPAP mask on and had to do everything regardless of what the patient's wishes were. The ex- his medical decision-maker as expressed in detail by the palliative care note and the patient specifically expressed while he had capacity that he would want his ex- making his medical decisions for him. I reminded the son of this, and I reminded the ex- that the responsibility to follow through his wishes rested with her and her alone. She is very clear about his wishes, and very clearly states that she would like a BiPAP mask removed, and that his comfort be our first priority, and would like to transition to comfort measures. She expresses understanding that this likely means that he will , and she would like to move forward with this. I expressed to the son, that if he did not agree with this decision and did not want to be a part of this, we would ask that he leave as opposed to be a focal obstacle in taking appropriate care of his father. At this point, the son became aggressive. Security was called and the son was escorted off the property. Congruent with the patient's wishes, as documented by the palliative care team, as well as on 2 separate conversations and occasions with his ex- and medical decision by more than 24 hours, it is my medical opinion that is in the best interest of the patient to follow through with what the medical decision-maker and ex-'s wishes are which is to pursue comfort measures and palliation. I think delaying this further would ethically not be in the best interest of the patient. Therefore we will pursue palliative withdrawal of care and comfort measures. We will remove BiPAP. We will add morphine and Ativan when necessary. Tomorrow we will consider moving the patient to a hospice facility or to the floor. The ex- asked that we keep him here in the [facility] on the because she does not have transportation at the moment to go to our hospice care center [place]. I also discussed the care again with the palliative care team and they agree with our decision as a Health care team. Patient was transitioned to comfort measures with his ex- and medical decision maker at bedside. He comfortably at 19:35 Valentin Pablo MD Jan 08, 2017 19:03
== END 2016-12-15 21:56 | disposition expired ==
LOC: NEPC 15:55 → NEDA 17:35 → N03B 20:09
PROVIDERS: ADMIT Emergency Medicine; ATTEND Emergency Medicine
PROC: 0BH17EZ Insertion of Endotracheal Airway into Trachea, Via Natural or Artificial Opening (ICD-10-PCS; principal; 2016-11-28)
PROC: 5A1945Z Respiratory Ventilation, 24-96 Consecutive Hours (ICD-10-PCS; 2016-11-28)
PROC: 02HV33Z Insertion of Infusion Device into Superior Vena Cava, Percutaneous Approach (ICD-10-PCS; 2016-11-29)
PROC: 5A1935Z Respiratory Ventilation, Less than 24 Consecutive Hours (ICD-10-PCS; 2016-12-01)
PROC: 0BH17EZ Insertion of Endotracheal Airway into Trachea, Via Natural or Artificial Opening (ICD-10-PCS; 2016-12-01)
PROC: 0BH17EZ Insertion of Endotracheal Airway into Trachea, Via Natural or Artificial Opening (ICD-10-PCS; 2016-12-07)
PROC: 5A1945Z Respiratory Ventilation, 24-96 Consecutive Hours (ICD-10-PCS; 2016-12-07)
DX: I46.9 Cardiac arrest, cause unspecified (principal); J96.00 Acute respiratory failure, unspecified whether with hypoxia or hypercapnia; I21.4 Non-ST elevation (NSTEMI) myocardial infarction; J69.0 Pneumonitis due to inhalation of food and vomit; G93.1 Anoxic brain damage, not elsewhere classified; N17.9 Acute kidney failure, unspecified; A41.9 Sepsis, unspecified organism; E87.0 Hyperosmolality and hypernatremia; E87.2 Acidosis; I13.0 Hypertensive heart and chronic kidney disease with heart failure and stage 1 through stage 4 chronic kidney disease, or unspecified chronic kidney disease; F05 Delirium due to known physiological condition; E44.0 Moderate protein-calorie malnutrition; N39.0 Urinary tract infection, site not specified; R56.9 Unspecified convulsions; E78.5 Hyperlipidemia, unspecified; I48.2 Chronic atrial fibrillation; N18.3 Chronic kidney disease, stage 3 (moderate); E83.42 Hypomagnesemia; G62.9 Polyneuropathy, unspecified; R73.9 Hyperglycemia, unspecified; I50.9 Heart failure, unspecified; I49.3 Ventricular premature depolarization; M10.9 Gout, unspecified; I73.9 Peripheral vascular disease, unspecified; I47.2 Ventricular tachycardia; D64.9 Anemia, unspecified; I25.10 Atherosclerotic heart disease of native coronary artery without angina pectoris; Z87.820 Personal history of traumatic brain injury; Z85.048 Personal history of other malignant neoplasm of rectum, rectosigmoid junction, and anus; Z87.891 Personal history of nicotine dependence; Z92.21 Personal history of antineoplastic chemotherapy; Z92.3 Personal history of irradiation; Z51.5 Encounter for palliative care
CPT/HCPCS: 31500; 36556; 36600; 51702; 70450; 70544; 70551; 71010; 74000; 76700; 78582; 80048; 80053; 80061; 80162; 80185; 80202; 80307; 81001; 82248; 82435; 82550; 82565; 82607; 82746; 82805; 82947; 82948; 83036; 83605; 83690; 83735; 83880; 84100; 84132; 84295; 84443; 84484; 84520; 85007; 85025; 85027; 85379; 85610; 85730; 87040; 87070; 87086; 87205; 87641; 93005; 93306; 93970; 94002; 94003; 94640; 94664; 95819; 96374; 96375; A9540; A9567; C9113; J0171; J0330; J0461; J1265; J1630; J1644; J1815; J1940; J1956; J2060; J2250; J2270; J2543; J3010; J3370; J3475; J3480; J3486; J7030; J7040; J7050; J7613; Q2009